=== PATIENT | male | born 1935 | race Hispanic/Latino ===

== ENCOUNTER 2018-03-06 08:47 | Emergency (ER) | payer MEDICARE | END 2018-03-06 09:24 | disposition home or self-care (01) | LOC: EDH 08:47 | DX: B37.42 Candidal balanitis (principal); Z90.49 Acquired absence of other specified parts of digestive tract; Z87.891 Personal history of nicotine dependence; Z98.890 Other specified postprocedural states | CPT/HCPCS: 99281 ==

== ENCOUNTER 2018-08-15 08:06 | Day surgery (SDC) | payer MEDICARE, OTHER ==
[2018-08-14 09:15] LABS: BASOPHILS % (AUTO) 1.7 % (0.0-5.0); EOSINOPHILS % (AUTO) 5.9 % (0.0-8.0); LYMPHOCYTES % (AUTO) 23.5 % (21.0-51.0); MEAN CORPUSCULAR HEMOGLOBIN 29.4 pg (27.0-33.0); MEAN CORPUSCULAR HGB CONC 33.3 g/dL (32.0-36.0); MEAN CORPUSCULAR VOLUME 88.2 fL (79-99); MONOCYTES % (AUTO) 6.6 % (3.0-13.0); NEUTROPHILS % (AUTO) 62.3 % (40.0-77.0); PLATELET COUNT (AUTO) 242 K/uL (130-400); RED BLOOD CELL COUNT(AUTO) 4.99 MIL/uL (4.50-6.20); RED CELL DISTRIBUTION WIDTH 13.8 % (11.0-15.5); WHITE BLOOD COUNT (AUTO) 7.5 K/uL (4.8-10.8)
[2018-08-14 09:18] VITALS: BP 178/78
[2018-08-14 09:23] LABS: APPEARANCE,URINE Clear (CLEAR); BILIRUBIN,URINE Negative (NEGATIVE); COLOR,URINE Yellow (YELLOW); GLUCOSE, URINE (UA) Negative (NEGATIVE); KETONES,URINE Negative (NEGATIVE); LEUKOCYTE ESTERASE ,URINE Negative (NEGATIVE); NITRATE,URINE Negative (NEGATIVE); OCCULT BLOOD,URINE Negative (NEGATIVE); PROTEIN,URINE Negative (NEGATIVE); UROBILINOGEN,URINE 0.2 mg/dL (0.2-1.0)
[2018-08-14 09:24] LABS: CREATININE 1.2 mg/dL (0.5-1.5); POTASSIUM 4.7 mmol/L (3.5-5.1)
[2018-08-14 09:27] LABS: INR 1.02 (0.85-1.15); PARTIAL THROMBOPLASTIN TIME 29.7 SEC (26.3-35.5); PROTHROMBIN TIME 10.7 SEC (9.6-11.6)
[~2018-08-15] VITALS: Ht 177.8 cm; Wt 99.2 kg
[2018-08-15] VITALS (9 sets, daily range): BP systolic 131–168; BP diastolic 60–84
[~2018-08-15 08:06] MED LIST: AMLO5TAB9 PO; ASPI-555 PO; ATOR20TA65 PO; CHOL500050 PO; ISOS30TA6 PO; NITR0.4T50 SL; SODIUM CHLORIDE 0.9% 500ML 500 ML IV SCH
[2018-08-15] MEDS ORDERED: SODIUM CHLORIDE 0.9% 1000ML 1,000 ML IV ONE (09:12)
[2018-08-15] MEDS ORDERED: LIDOCAINE HCL 1% 20 ML VIAL ONE (11:07)
[2018-08-15] MEDS ORDERED: IOHEXOL 350 MG/ML 100ML INFUS..BTL IV ONE (11:08)
[2018-08-15] MEDS ORDERED: IOHEXOL-350 50ML VIAL IV ONE (11:08)
[2018-08-15] MEDS ORDERED: HEPARIN SODIUM 1000UNIT/ML 10ML VIAL ONE (11:08)
== END 2018-08-15 16:15 | disposition home or self-care (01) ==
LOC: DAH 08:06
PROVIDERS: ATTEND Internal Medicine Cardiovascular Disease
DX: I25.118 Atherosclerotic heart disease of native coronary artery with other forms of angina pectoris (principal); E78.5 Hyperlipidemia, unspecified; Z79.01 Long term (current) use of anticoagulants; Z79.899 Other long term (current) drug therapy; Z98.890 Other specified postprocedural states; N18.9 Chronic kidney disease, unspecified; Z68.33 Body mass index [BMI] 33.0-33.9, adult
CPT/HCPCS: 36415; 71045; 80048; 81003; 85025; 85610; 85730; 93005; 93458; A4606; C1760; C1894; J1644 ×2; J7030; Q9965; Q9967 ×2

== ENCOUNTER 2018-08-16 21:05 | Emergency (ER) | payer OTHER ==
[~2018-08-16 21:05] MED LIST changes: -SODIUM CHLORIDE 0.9% 500ML 500 ML IV SCH
[2018-08-16 22:15] LABS: BASOPHILS % (AUTO) 1.1 % (0.0-5.0); HEMATOCRIT 37.3 % (42-54); MEAN CORPUSCULAR HEMOGLOBIN 29.9 pg (27.0-33.0); MEAN CORPUSCULAR HGB CONC 33.9 g/dL (32.0-36.0); MEAN CORPUSCULAR VOLUME 88.3 fL (79-99); MONOCYTES % (AUTO) 8.9 % (3.0-13.0); PLATELET COUNT (AUTO) 212 K/uL (130-400); RED BLOOD CELL COUNT(AUTO) 4.23 MIL/uL (4.50-6.20); RED CELL DISTRIBUTION WIDTH 13.8 % (11.0-15.5); WHITE BLOOD COUNT (AUTO) 7.6 K/uL (4.8-10.8)
[2018-08-16 22:36] LABS: CREATININE 1.3 mg/dL (0.5-1.5); POTASSIUM 4.1 mmol/L (3.5-5.1)
[2018-08-16 22:37] LABS: INR 1.03 (0.85-1.15); PARTIAL THROMBOPLASTIN TIME 29.9 SEC (26.3-35.5); PROTHROMBIN TIME 10.8 SEC (9.6-11.6)
[2018-08-16 22:40] LABS: ALBUMIN 3.1 g/dL (3.5-5.0); BILIRUBIN,TOTAL 0.4 mg/dL (0.2-1.0); TOTAL PROTEIN, SERUM 6.2 g/dL (6.0-8.3)
== END 2018-08-16 22:55 | disposition home or self-care (01) ==
LOC: EDH 21:05
DX: Z48.01 Encounter for change or removal of surgical wound dressing (principal); I25.10 Atherosclerotic heart disease of native coronary artery without angina pectoris; D64.9 Anemia, unspecified; E78.5 Hyperlipidemia, unspecified; Z90.49 Acquired absence of other specified parts of digestive tract
CPT/HCPCS: 36415; 80053; 85025; 85610; 85730

== ENCOUNTER → 2018-09-07 | Outpatient (CLI) | payer OTHER | END | disposition home or self-care (01) | LOC: RAH 10:39 | PROVIDERS: ATTEND Internal Medicine | DX: I70.209 Unspecified atherosclerosis of native arteries of extremities, unspecified extremity (principal) | CPT/HCPCS: 93925 ==

== ENCOUNTER 2018-10-19 07:30 | Day surgery (SDC) | payer OTHER ==
[~2018-10-19] VITALS: Ht 180.3 cm; Wt 98.1 kg
[2018-10-19 08:15] VITALS: BP 163/65
[2018-10-19] MEDS ORDERED: SODIUM CHLORIDE 0.9% 1000ML 1,000 ML IV ONE (08:20)
[2018-10-19] MEDS ORDERED: IOHEXOL 350 MG/ML 100ML INFUS..BTL IV ONE (11:17)
[2018-10-19] MEDS ORDERED: IOHEXOL-350 50ML VIAL IV ONE (11:18)
[2018-10-19 11:55] VITALS: BP 158/58
--- NOTE | 2018-10-19 12:20 | NUR ---
NOTE PT TOLERATED CT WELL, DISCHARGED IN STABLE CONDITION, VOIDED PRIOR TO DISCHARGE. PT ASYMPTOMATIC, IV SITE HEALTHY. DISCHARGE INSTRUCTIONS GIVEN TO SON AND PT, VERBALIZED UNDERSTANDING.
== END 2018-10-19 12:20 | disposition home or self-care (01) ==
LOC: DAH 07:30 → RAH 07:30 → EDSTATUS 08:00 → RAH 12:20
PROVIDERS: ATTEND Internal Medicine Cardiovascular Disease
DX: I70.213 Atherosclerosis of native arteries of extremities with intermittent claudication, bilateral legs (principal); I70.1 Atherosclerosis of renal artery; I25.10 Atherosclerotic heart disease of native coronary artery without angina pectoris; E78.5 Hyperlipidemia, unspecified; N18.9 Chronic kidney disease, unspecified; Z98.890 Other specified postprocedural states
CPT/HCPCS: 75635; 96360; 96361; J7030; Q9967 ×2

== ENCOUNTER 2018-12-11 14:17 | Emergency (ER) | payer OTHER ==
[2018-12-11 14:43] LABS: BASOPHILS % (AUTO) 1.1 % (0.0-5.0); EOSINOPHILS % (AUTO) 9.6 % (0.0-8.0); LYMPHOCYTES % (AUTO) 15.8 % (21.0-51.0); MEAN CORPUSCULAR HEMOGLOBIN 29.8 pg (27.0-33.0); MEAN CORPUSCULAR HGB CONC 33.8 g/dL (32.0-36.0); MEAN CORPUSCULAR VOLUME 88.2 fL (79-99); MONOCYTES % (AUTO) 6.5 % (3.0-13.0); PLATELET COUNT (AUTO) 212 K/uL (130-400); RED BLOOD CELL COUNT(AUTO) 4.65 MIL/uL (4.50-6.20); RED CELL DISTRIBUTION WIDTH 13.8 % (11.0-15.5)
[2018-12-11 14:57] LABS: INR 1.04 (0.85-1.15); PARTIAL THROMBOPLASTIN TIME 28.5 SEC (26.3-35.5); PROTHROMBIN TIME 10.9 SEC (9.6-11.6)
[2018-12-11 14:58] LABS: CARBON DIOXIDE 21 mmol/L (21-32); CHLORIDE 107 mmol/L (101-111); CREATININE 1.4 mg/dL (0.5-1.5); GLOMERULAR FILTR. RATE CALC 51 mL/min (>60); GLUCOSE,RANDOM 154 mg/dL (70-105); POTASSIUM 3.8 mmol/L (3.5-5.1); SODIUM SERUM 139 mmol/L (136-145); UREA NITROGEN, BLOOD 19 mg/dL (7-18)
[2018-12-11 15:11] LABS: ALANINE AMINOTRANSFERASE 17 U/L (12-78); ALBUMIN 3.2 g/dL (3.5-5.0); ASPARTATE AMINOTRANSFERASE 18 U/L (10-37); BILIRUBIN,TOTAL 0.5 mg/dL (0.2-1.0); CREATINE KINASE, TOTAL 120 U/L (21-232); MYOGLOBIN 94 ng/mL (10-92); TOTAL PROTEIN, SERUM 6.7 g/dL (6.0-8.3); TROPONIN I < 0.04 ng/mL (0.00-0.06)
[2018-12-11 15:29] LABS: APPEARANCE,URINE Clear (CLEAR); BILIRUBIN,URINE Negative (NEGATIVE); COLOR,URINE Yellow (YELLOW); GLUCOSE, URINE (UA) Negative (NEGATIVE); KETONES,URINE Negative (NEGATIVE); LEUKOCYTE ESTERASE ,URINE Negative (NEGATIVE); NITRATE,URINE Negative (NEGATIVE); OCCULT BLOOD,URINE Trace (NEGATIVE); PROTEIN,URINE Negative (NEGATIVE); UROBILINOGEN,URINE 0.2 mg/dL (0.2-1.0)
[2018-12-11 15:41] LABS: BACTERIA,URINE Rare /HPF (None Seen); SQUAMOUS EPITHELIAL CELL,UR Rare /HPF (0-2); WBC,URINE 0-1 /HPF (0-1)
[2018-12-11] MEDS ORDERED: BENZONATATE 100 MG CAPSULE PO ONE (16:25)
[2018-12-11] MEDS ORDERED: CEFTRIAXONE SODIUM 1 GM ONE (16:26)
[2018-12-11] MEDS ORDERED: AZITHROMYCIN 250 MG TABLET PO ONE (16:26)
[2018-12-11] MEDS ORDERED: ACETAMINOPHEN 325 MG TAB ONE (16:26)
[2018-12-11] MEDS ORDERED: SODIUM CHLORIDE 0.9% 50 ML IV ONE (16:27)
== END 2018-12-11 17:14 | disposition home or self-care (01) ==
LOC: EDH 14:17
DX: J18.9 Pneumonia, unspecified organism (principal); E78.5 Hyperlipidemia, unspecified; I10 Essential (primary) hypertension; Z90.49 Acquired absence of other specified parts of digestive tract; Z87.891 Personal history of nicotine dependence
CPT/HCPCS: 36415; 71045; 80053; 81001; 81003; 82550; 83605; 83874; 84145; 84484; 85025; 85610; 85730; 87040 ×2; 87088; 87804 ×2; 93005; 96374; 99285; J0696

== ENCOUNTER 2019-05-31 11:47 | Inpatient (IN) | payer OTHER ==
[~2019-05-31] VITALS: Ht 182.9 cm; Wt 93.0 kg
[2019-05-31 12:41] LABS: BASOPHILS % (AUTO) 0.7 % (0.0-5.0); HEMATOCRIT 30.4 % (42-54); MEAN CORPUSCULAR HEMOGLOBIN 29.1 pg (27.0-33.0); MEAN CORPUSCULAR HGB CONC 31.3 g/dL (32.0-36.0); MONOCYTES % (AUTO) 4.1 % (3.0-13.0); NEUTROPHILS % (AUTO) 79.5 % (40.0-77.0); PLATELET COUNT (AUTO) 274 K/uL (130-400); RED BLOOD CELL COUNT(AUTO) 3.27 MIL/uL (4.50-6.20); RED CELL DISTRIBUTION WIDTH 13.9 % (11.0-15.5); WHITE BLOOD COUNT (AUTO) 12.2 K/uL (4.8-10.8)
[2019-05-31 13:13] LABS: INR 1.12 (0.85-1.15); PARTIAL THROMBOPLASTIN TIME 23.6 SEC (26.3-35.5)
[2019-05-31 13:18] LABS: ALBUMIN 2.9 g/dL (3.5-5.0); BILIRUBIN,TOTAL 0.4 mg/dL (0.2-1.0); CREATININE 1.4 mg/dL (0.5-1.5); POTASSIUM 4.5 mmol/L (3.5-5.1); TOTAL PROTEIN, SERUM 5.9 g/dL (6.0-8.3)
[2019-05-31] MEDS ORDERED: SODIUM CHLORIDE 0.9% 500ML 500 ML IV ONE (16:04)
[2019-05-31] MEDS ORDERED: SODIUM CHLORIDE 0.9% 1000ML 1,000 ML IV ONE ×2 (16:04→18:59)
[2019-05-31] MEDS: SODIUM CHLORIDE 0.9% 1000ML 1,000 ML IV SCH (16:34)
[2019-05-31] MEDS ORDERED: HYDRALAZINE HCL 20 MG/ML VIAL IV PRN (16:45)
[2019-05-31 17:08] LABS: APPEARANCE,URINE Cloudy (CLEAR); BILIRUBIN,URINE Negative (NEGATIVE); COLOR,URINE Yellow (YELLOW); GLUCOSE, URINE (UA) Negative (NEGATIVE); KETONES,URINE Trace mg/dL (NEGATIVE); LEUKOCYTE ESTERASE ,URINE Negative (NEGATIVE); NITRATE,URINE Negative (NEGATIVE); OCCULT BLOOD,URINE Negative (NEGATIVE); PROTEIN,URINE Negative (NEGATIVE); UROBILINOGEN,URINE 0.2 mg/dL (0.2-1.0)
[2019-05-31 17:36] LABS: BACTERIA,URINE Rare /HPF (None Seen); RBC,URINE 0-1 /HPF (0-1); SQUAMOUS EPITHELIAL CELL,UR Few /HPF (0-2); WBC,URINE 0-1 /HPF (0-1)
[2019-05-31] MEDS ORDERED: ONDANSETRON HCL 4 MG/2 ML VIAL IVP PRN (18:30)
[2019-05-31] MEDS ORDERED: ZOSYN 3.375GM+NS 50ML 50 ML IV ONE (18:58)
[2019-05-31] MEDS: ZOSYN 3.375GM+NS 50ML 50 ML IV SCH (21:00)
[2019-05-31 21:45] VITALS: BP 152/73
--- NOTE | 2019-05-31 21:45 | NUR ---
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
[2019-05-31] MEDS ORDERED: CILO100T PO (22:33)
[2019-06-01] VITALS: BP 149/61
[2019-06-01] MEDS: SODIUM CHLORIDE 0.9% 1000ML 1,000 ML IV SCH ×3 (02:34→22:34)
[2019-06-01 04:00] VITALS: BP 139/57
--- NOTE | 2019-06-01 04:00 | NUR ---
ASSUME CARE ASSUME CARE FOR PT AT THIS TIME. PT CALM IN BED. NO S/S OF DISTRESS.
[2019-06-01 04:57] LABS: HEMATOCRIT 25.9 % (42-54); MEAN CORPUSCULAR HEMOGLOBIN 29.1 pg (27.0-33.0); MEAN CORPUSCULAR HGB CONC 31.7 g/dL (32.0-36.0); MEAN CORPUSCULAR VOLUME 91.8 fL (79-99); PLATELET COUNT (AUTO) 206 K/uL (130-400); RED BLOOD CELL COUNT(AUTO) 2.82 MIL/uL (4.50-6.20); RED CELL DISTRIBUTION WIDTH 14.3 % (11.0-15.5); WHITE BLOOD COUNT (AUTO) 12.8 K/uL (4.8-10.8)
[2019-06-01 05:13] LABS: CREATININE 1.2 mg/dL (0.5-1.5); POTASSIUM 4.2 mmol/L (3.5-5.1)
[2019-06-01] MEDS: ZOSYN 3.375GM+NS 50ML 50 ML IV SCH ×3 (05:42→21:16)
[2019-06-01 08:00] VITALS: BP 134/58
[2019-06-01] MEDS ORDERED: PANTOPRAZOLE 40 MG/VIAL IVP SCH ×2 (08:30→09:00)
[2019-06-01] MEDS: PANTOPRAZOLE SODIUM 80 MG in SODIUM CHLORIDE 0.9% 100 ML IV SCH (10:33)
[2019-06-01 12:00] VITALS: BP 112/56
[2019-06-01 16:00] VITALS: BP 143/77
[2019-06-01] MEDS ORDERED: CILOSTAZOL 100 MG TAB PO SCH (16:30)
--- NOTE | 2019-06-01 16:41 | NUR ---
D/C PLAN cm spoke to pt and son regarding d/c planning. Son named Jason at bedside. Pt is ind. and lives with grandterry. States pt has provider about 2-3 hours/day. Denies having any DME. Plan to home. CM offered short term snf/rehab as possible d/c option. Per son, prefers to return home. Plan to home for now. CM to f/u. Addendum: 06/01/19 at 1652 by KAREN FAGAN CM Amended: Links added.
--- NOTE | 2019-06-01 16:45 | NUR ---
After son of pt call and notify that the pt sounds different when he speak, I evaluated the pt and notice slurred speech that was not present approximally 30 to [address] Giorn was notify and order a CT head/Brain stat, Tele-Neuro, labs and code stroke was call. Using Tele- Neuro pt was evaluated by Dr Pires and suspected a stroke, CT angio of head and neck was ordered and pt was taken immediately (pending result). At the moment pt is stable, AAO x3 with daughter on bedside.
[2019-06-01] MEDS ORDERED: IOHEXOL-350 75 ML VIAL IV ONE (17:16)
[2019-06-01 18:38] LABS: BASOPHILS % (AUTO) 0.8 % (0.0-5.0); HEMATOCRIT 25.7 % (42-54); LYMPHOCYTES % (AUTO) 28.7 % (21.0-51.0); MEAN CORPUSCULAR HEMOGLOBIN 28.7 pg (27.0-33.0); MEAN CORPUSCULAR HGB CONC 30.7 g/dL (32.0-36.0); MEAN CORPUSCULAR VOLUME 93.5 fL (79-99); PLATELET COUNT (AUTO) 190 K/uL (130-400); RED BLOOD CELL COUNT(AUTO) 2.75 MIL/uL (4.50-6.20); RED CELL DISTRIBUTION WIDTH 14.6 % (11.0-15.5); WHITE BLOOD COUNT (AUTO) 10.3 K/uL (4.8-10.8)
[2019-06-01 19:03] LABS: CREATININE 1.3 mg/dL (0.5-1.5); POTASSIUM 4.1 mmol/L (3.5-5.1)
[2019-06-01 19:07] LABS: ALBUMIN 2.7 g/dL (3.5-5.0); BILIRUBIN,TOTAL 0.5 mg/dL (0.2-1.0); TOTAL PROTEIN, SERUM 5.5 g/dL (6.0-8.3)
[2019-06-01 20:00] VITALS: BP 138/59
--- NOTE | 2019-06-01 20:12 | NUR ---
PLETAL ANTIPLATELET MEDICATION NOT ADMINISTERED D/T ACTIVE GI BLEED. AWARE
--- NOTE | 2019-06-01 20:40 | NUR ---
TRANSFER TO 230 PT TRANFERED TO ROOM 230 AT THIS TIME. FAMILY AT BEDSIDE. NO S/S OF DISTRESS. REPORT GIVEN TO RODRIGO HAJI
[2019-06-01] MEDS ORDERED: ISOSORBIDE MONO 30MG TAB SR PO SCH (21:00)
[2019-06-02] VITALS (14 sets, daily range): BP systolic 104–158; BP diastolic 53–75
[2019-06-02] MEDS: ZOSYN 3.375GM+NS 50ML 50 ML IV SCH ×3 (05:02→21:02)
[2019-06-02 06:42] LABS: BASOPHILS % (AUTO) 0.7 % (0.0-5.0); EOSINOPHILS % (AUTO) 12.6 % (0.0-8.0); HEMATOCRIT 24.6 % (42-54); LYMPHOCYTES % (AUTO) 23.3 % (21.0-51.0); MEAN CORPUSCULAR HEMOGLOBIN 28.5 pg (27.0-33.0); MEAN CORPUSCULAR HGB CONC 30.5 g/dL (32.0-36.0); MEAN CORPUSCULAR VOLUME 93.5 fL (79-99); MONOCYTES % (AUTO) 5.9 % (3.0-13.0); PLATELET COUNT (AUTO) 201 K/uL (130-400); RED BLOOD CELL COUNT(AUTO) 2.63 MIL/uL (4.50-6.20); RED CELL DISTRIBUTION WIDTH 14.6 % (11.0-15.5)
[2019-06-02 06:56] LABS: CREATININE 1.3 mg/dL (0.5-1.5); POTASSIUM 4.3 mmol/L (3.5-5.1)
[2019-06-02] MEDS ORDERED: PROPOFOL 10 MG/ML 20ML VIAL IV ONE (07:48)
[2019-06-02] MEDS: SODIUM CHLORIDE 0.9% 1000ML 1,000 ML IV SCH ×2 (08:34→21:02)
[2019-06-02] MEDS: PANTOPRAZOLE SODIUM 80 MG in SODIUM CHLORIDE 0.9% 100 ML IV SCH (10:36)
[2019-06-02] MEDS ORDERED: ATORVASTATIN CALCIUM 20 MG TABLET PO SCH (12:00)
[2019-06-02] MEDS: SUCRALFATE 1 GM/10 ML PO SCH (21:02)
[2019-06-03] VITALS (7 sets, daily range): BP systolic 121–145; BP diastolic 45–85
[2019-06-03 04:52] LABS: BASOPHILS % (AUTO) 0.7 % (0.0-5.0); EOSINOPHILS % (AUTO) 14.4 % (0.0-8.0); HEMATOCRIT 23.7 % (42-54); LYMPHOCYTES % (AUTO) 27.3 % (21.0-51.0); MEAN CORPUSCULAR HEMOGLOBIN 29.6 pg (27.0-33.0); MEAN CORPUSCULAR HGB CONC 31.6 g/dL (32.0-36.0); MEAN CORPUSCULAR VOLUME 93.7 fL (79-99); MONOCYTES % (AUTO) 6.7 % (3.0-13.0); NEUTROPHILS % (AUTO) 50.6 % (40.0-77.0); PLATELET COUNT (AUTO) 176 K/uL (130-400); RED BLOOD CELL COUNT(AUTO) 2.53 MIL/uL (4.50-6.20); RED CELL DISTRIBUTION WIDTH 14.6 % (11.0-15.5); WHITE BLOOD COUNT (AUTO) 9.4 K/uL (4.8-10.8)
[2019-06-03 05:18] LABS: ALBUMIN 2.6 g/dL (3.5-5.0); BILIRUBIN,TOTAL 0.4 mg/dL (0.2-1.0); CREATININE 1.2 mg/dL (0.5-1.5); POTASSIUM 3.6 mmol/L (3.5-5.1); TOTAL PROTEIN, SERUM 5.2 g/dL (6.0-8.3)
[2019-06-03] MEDS: ZOSYN 3.375GM+NS 50ML 50 ML IV SCH ×3 (05:30→20:59)
[2019-06-03] MEDS: PANTOPRAZOLE SODIUM 40 MG TABLET.DR PO SCH (06:22)
[2019-06-03] MEDS: SUCRALFATE 1 GM/10 ML PO SCH ×2 (08:12→14:32)
[2019-06-03] MEDS ORDERED: ATORVASTATIN CALCIUM 20 MG TABLET PO SCH (21:00)
[2019-06-04 03:33] VITALS: BP 112/50
[2019-06-04 04:29] LABS: BASOPHILS % (AUTO) 0.7 % (0.0-5.0); EOSINOPHILS % (AUTO) 10.7 % (0.0-8.0); HEMATOCRIT 22.4 % (42-54); LYMPHOCYTES % (AUTO) 31.2 % (21.0-51.0); MEAN CORPUSCULAR HEMOGLOBIN 29.3 pg (27.0-33.0); MEAN CORPUSCULAR HGB CONC 31.7 g/dL (32.0-36.0); MEAN CORPUSCULAR VOLUME 92.6 fL (79-99); MONOCYTES % (AUTO) 6.7 % (3.0-13.0); NEUTROPHILS % (AUTO) 50.4 % (40.0-77.0); PLATELET COUNT (AUTO) 185 K/uL (130-400); RED BLOOD CELL COUNT(AUTO) 2.42 MIL/uL (4.50-6.20); RED CELL DISTRIBUTION WIDTH 14.6 % (11.0-15.5); WHITE BLOOD COUNT (AUTO) 9.7 K/uL (4.8-10.8)
[2019-06-04 04:42] LABS: ALBUMIN 2.5 g/dL (3.5-5.0); BILIRUBIN,TOTAL 0.4 mg/dL (0.2-1.0); CREATININE 1.4 mg/dL (0.5-1.5); POTASSIUM 3.3 mmol/L (3.5-5.1); TOTAL PROTEIN, SERUM 5.1 g/dL (6.0-8.3)
[2019-06-04] MEDS: SUCRALFATE 1 GM/10 ML PO SCH ×2 (05:48→12:06)
[2019-06-04] MEDS: ZOSYN 3.375GM+NS 50ML 50 ML IV SCH ×2 (05:50→12:06)
[2019-06-04] MEDS: PANTOPRAZOLE SODIUM 40 MG TABLET.DR PO SCH (05:55)
[2019-06-04] MEDS ORDERED: POTASSIUM BICARB/CIT AC 25 MEQ TABLET.EFF PO SCH (06:45)
--- NOTE | 2019-06-04 07:35 | NUR ---
ASSESSMENT ENCOUNTERED PT SITTING UP IN CHAIR, A&OX3, CALM COOPERATIVE AND DOES NOT APPEAR TO BE IN ANY DISTRESS NOR ANY NEURO DEFICITS PRESENT, PT DENIES PAIN, SOB, NAUSEA BUT DOES C/O GENERALIZED BODY WEAKNESS. PT IS ABLE TO TOLERATE FOODS, FLUIDS AND MEDICATION WITH NO THROAT CLEARING OR COUGH. PT IS AMBULATORY, GAIT SLOW AND UNSTEADY WITH ASSIST. CALL LIGHT WITHIN REACH, FAMILY AT BEDSIDE.
[2019-06-04 08:22] VITALS: BP 128/53
[2019-06-04 11:50] VITALS: BP 124/68
[2019-06-04 13:24] LABS: MEAN CORPUSCULAR HEMOGLOBIN 30.2 pg (27.0-33.0); MEAN CORPUSCULAR HGB CONC 31.5 g/dL (32.0-36.0); MEAN CORPUSCULAR VOLUME 96.1 fL (79-99); PLATELET COUNT (AUTO) 235 K/uL (130-400); RED BLOOD CELL COUNT(AUTO) 2.81 MIL/uL (4.50-6.20); RED CELL DISTRIBUTION WIDTH 15.5 % (11.0-15.5)
[2019-06-04] MEDS ORDERED: FERR325T22 PO (13:48)
[2019-06-04] MEDS ORDERED: CARAL PO (13:48)
[2019-06-04] MEDS ORDERED: PANT40TA PO (13:48)
[2019-06-04] MEDS ORDERED: POTASSIUM CHLORIDE 20 MEQ ERTAB PO SCH (14:00)
--- NOTE | 2019-06-04 14:31 | NUR ---
[id number] patient signed IM Letter, I faxed IM Letter to [phone] and placed in chart under consent tab
[2019-06-04 16:26] VITALS: BP 137/51
--- NOTE | 2019-06-04 18:00 | NUR ---
DISCHARGE INSTRUCTIONS GIVEN, PIV REMOVED AND INTACT, DISCHARGED HOME TO FAMILY VEHICLE VIA WHEELCHAIR.
== END 2019-06-04 18:33 | disposition home or self-care (01) | DRG 380 ==
LOC: EDH 11:47 → OBSVTOIN 16:37 → EDHIP 16:37 → 3AH 21:49 → 2AH 06-01 20:35
PROVIDERS: ADMIT Internal Medicine; ATTEND Internal Medicine
PROC: 0DJ08ZZ Inspection of Upper Intestinal Tract, Via Natural or Artificial Opening Endoscopic (ICD-10-PCS; principal; 2019-06-02)
DX: K22.11 Ulcer of esophagus with bleeding (principal); I63.9 Cerebral infarction, unspecified; D62 Acute posthemorrhagic anemia; K29.71 Gastritis, unspecified, with bleeding; K26.4 Chronic or unspecified duodenal ulcer with hemorrhage; E78.5 Hyperlipidemia, unspecified; E86.0 Dehydration; I10 Essential (primary) hypertension; K44.9 Diaphragmatic hernia without obstruction or gangrene; I95.9 Hypotension, unspecified; R00.0 Tachycardia, unspecified; K31.89 Other diseases of stomach and duodenum; I73.9 Peripheral vascular disease, unspecified; R47.81 Slurred speech; R29.708 NIHSS score 8; Z87.891 Personal history of nicotine dependence; Z90.49 Acquired absence of other specified parts of digestive tract; Z98.42 Cataract extraction status, left eye; Z98.41 Cataract extraction status, right eye; Z79.899 Other long term (current) drug therapy
CPT/HCPCS: 36415; 43235; 70450; 70496; 70498; 70551; 71045; 76700; 80048; 80053; 81001; 82140; 82948; 83605; 83690; 84145; 84484; 85025; 85027; 85610; 85730; 86850; 86900; 86901; 87088; 93005; 97039; 99291; C9113; G0378; J2543; J2704; J7030; J7040; Q9967

== ENCOUNTER 2020-02-21 11:36 | Emergency (ER) | payer OTHER ==
[~2020-02-21 11:36] MED LIST changes: -AMLO5TAB9 PO; -ASPI-555 PO; +ASPI-556 PO; +CARAL PO; +CILO100T PO; +FERR325T22 PO; -NITR0.4T50 SL; +PANT40TA PO
[2020-02-21 11:57] LABS: BASOPHILS % (AUTO) 0.5 % (0.0-5.0); EOSINOPHILS % (AUTO) 0.1 % (0.0-8.0); HEMATOCRIT 44.9 % (42-54); LYMPHOCYTES % (AUTO) 14.6 % (21.0-51.0); MEAN CORPUSCULAR HEMOGLOBIN 29.3 pg (27.0-33.0); MEAN CORPUSCULAR HGB CONC 32.1 g/dL (32.0-36.0); MEAN CORPUSCULAR VOLUME 91.3 fL (79-99); MONOCYTES % (AUTO) 7.5 % (3.0-13.0); NEUTROPHILS % (AUTO) 77.1 % (40.0-77.0); PLATELET COUNT (AUTO) 184 K/uL (130-400); RED BLOOD CELL COUNT(AUTO) 4.92 MIL/uL (4.50-6.20); RED CELL DISTRIBUTION WIDTH 13.4 % (11.0-15.5)
[2020-02-21] MEDS ORDERED: ACETAMINOPHEN EXTRA STRENGTH 500 MG TABLET ONE (12:00)
[2020-02-21 12:01] LABS: CREATININE 1.6 mg/dL (0.5-1.5); POTASSIUM 3.6 mmol/L (3.5-5.1)
[2020-02-21 12:06] LABS: ALBUMIN 3.1 g/dL (3.5-5.0); BILIRUBIN,TOTAL 0.5 mg/dL (0.2-1.0); INR 1.06 (0.85-1.15); PARTIAL THROMBOPLASTIN TIME 27.8 SEC (26.3-35.5); PROTHROMBIN TIME 11.4 SEC (9.6-11.6); TOTAL PROTEIN, SERUM 7.1 g/dL (6.0-8.3)
[2020-02-21 13:03] LABS: APPEARANCE,URINE Clear (CLEAR); BILIRUBIN,URINE Negative (NEGATIVE); COLOR,URINE Yellow (YELLOW); GLUCOSE, URINE (UA) Negative (NEGATIVE); KETONES,URINE Negative (NEGATIVE); LEUKOCYTE ESTERASE ,URINE Trace (NEGATIVE); NITRATE,URINE Negative (NEGATIVE); OCCULT BLOOD,URINE Moderate (NEGATIVE); PROTEIN,URINE Trace mg/dL (NEGATIVE)
[2020-02-21 13:30] LABS: BACTERIA,URINE None Seen /HPF (None Seen); RBC,URINE 0-1 /HPF (0-1); SQUAMOUS EPITHELIAL CELL,UR 0-2 /HPF (0-2); WBC,URINE 0-1 /HPF (0-1)
[2020-02-21] MEDS ORDERED: IVERMECTIN 3 MG TAB PO SCH (14:00)
[2020-02-21] MEDS ORDERED: ENOXAPARIN SODIUM 100 MG/1 ML SQ ONE (14:17)
[2020-02-21] MEDS ORDERED: CEFTRIAXONE SODIUM 1 GM ONE (14:18)
[2020-02-21] MEDS ORDERED: SODIUM CHLORIDE 0.9% 100 ML IV ONE (14:19)
== END 2020-02-21 15:00 | disposition home or self-care (01) ==
LOC: EDH 11:36
DX: R50.9 Fever, unspecified (principal); Z20.828 Contact with and (suspected) exposure to other viral communicable diseases; I10 Essential (primary) hypertension; E78.5 Hyperlipidemia, unspecified
CPT/HCPCS: 36415; 70450; 71045; 72125; 80053; 81001; 82550; 82728; 83605; 83615; 84145; 84484; 85025; 85378; 85610; 85651; 85730; 87040; 87426; 93005; 96372; 96374; 99285; J0696; J1650; U0003

== ENCOUNTER 2020-03-27 15:42 | Emergency (ER) | payer OTHER ==
[~2020-03-27 15:42] MED LIST changes: -ISOS30TA6 PO; +ISOS30TA92 PO
[2020-03-27 16:37] LABS: BASOPHILS % (AUTO) 0.2 % (0.0-5.0); HEMATOCRIT 42.1 % (42-54); LYMPHOCYTES % (AUTO) 17.7 % (21.0-51.0); MEAN CORPUSCULAR HGB CONC 32.5 g/dL (32.0-36.0); MEAN CORPUSCULAR VOLUME 89.2 fL (79-99); MONOCYTES % (AUTO) 6.4 % (3.0-13.0); NEUTROPHILS % (AUTO) 75.5 % (40.0-77.0); PLATELET COUNT (AUTO) 235 K/uL (130-400); RED BLOOD CELL COUNT(AUTO) 4.72 MIL/uL (4.50-6.20); RED CELL DISTRIBUTION WIDTH 14.1 % (11.0-15.5); WHITE BLOOD COUNT (AUTO) 5.8 K/uL (4.8-10.8)
[2020-03-27 16:52] LABS: CREATININE 1.4 mg/dL (0.5-1.5)
[2020-03-27 16:57] LABS: ALBUMIN 2.7 g/dL (3.5-5.0); BILIRUBIN,TOTAL 0.3 mg/dL (0.2-1.0); TOTAL PROTEIN, SERUM 6.4 g/dL (6.0-8.3)
[2020-03-27 17:42] LABS: APPEARANCE,URINE Clear (CLEAR); BILIRUBIN,URINE Negative (NEGATIVE); COLOR,URINE Yellow (YELLOW); GLUCOSE, URINE (UA) Negative (NEGATIVE); KETONES,URINE Negative (NEGATIVE); LEUKOCYTE ESTERASE ,URINE Negative (NEGATIVE); NITRATE,URINE Negative (NEGATIVE); OCCULT BLOOD,URINE Negative (NEGATIVE); PROTEIN,URINE Trace mg/dL (NEGATIVE); UROBILINOGEN,URINE 0.2 mg/dL (0.2-1.0)
[2020-03-27 18:00] LABS: BACTERIA,URINE Few /HPF (None Seen); MUCUS,URINE Few LPF (None Seen); RBC,URINE 0-1 /HPF (0-1); SQUAMOUS EPITHELIAL CELL,UR Moderate /HPF (0-2); WBC,URINE 0-1 /HPF (0-1)
== END 2020-03-27 19:04 | disposition home or self-care (01) ==
LOC: EDH 15:42
DX: R53.1 Weakness (principal); Z20.822 Contact with and (suspected) exposure to COVID-19; E78.5 Hyperlipidemia, unspecified; I10 Essential (primary) hypertension
CPT/HCPCS: 36415; 80053; 81001; 84484; 85025; 93005

== ENCOUNTER 2020-04-01 11:30 | Inpatient (IN) | payer OTHER ==
[~2020-04-01] VITALS: Ht 180.3 cm; Wt 67.7 kg
[2020-04-01 11:53] LABS: ABG HCO3 20.4 mmol/L (21.0-28.0); ABG OXYGEN SATURATION 85.6 % (95.0-99.0); ABG PCO2 32 mmHg (35-48)
[2020-04-01 11:54] LABS: BASOPHILS % (AUTO) 0.3 % (0.0-5.0); EOSINOPHILS % (AUTO) 0.9 % (0.0-8.0); HEMATOCRIT 42.2 % (42-54); LYMPHOCYTES % (AUTO) 13.7 % (21.0-51.0); MEAN CORPUSCULAR HEMOGLOBIN 28.8 pg (27.0-33.0); MONOCYTES % (AUTO) 5.8 % (3.0-13.0); NEUTROPHILS % (AUTO) 78.9 % (40.0-77.0); PLATELET COUNT (AUTO) 341 K/uL (130-400); RED BLOOD CELL COUNT(AUTO) 4.69 MIL/uL (4.50-6.20); RED CELL DISTRIBUTION WIDTH 14.4 % (11.0-15.5); WHITE BLOOD COUNT (AUTO) 7.5 K/uL (4.8-10.8)
[2020-04-01] MEDS ORDERED: DEXAMETHASONE SOD PHOSPHATE 10MG/ML 1ML VIAL ONE (12:03)
[2020-04-01] MEDS ORDERED: CEFTRIAXONE 1G VIAL ONE (12:04)
[2020-04-01] MEDS ORDERED: AZITHROMYCIN 500MG+NS 250ML 250 ML IV ONE (12:04)
[2020-04-01] MEDS ORDERED: ACETAMINOPHEN 500 MG TABLET ONE (12:04)
[2020-04-01 12:08] LABS: CARBON DIOXIDE 26 mmol/L (21-32); CHLORIDE 110 mmol/L (101-111); CREATININE 1.2 mg/dL (0.5-1.5); GLOMERULAR FILTR. RATE CALC 61 mL/min (>60); GLUCOSE,RANDOM 111 mg/dL (70-105); POTASSIUM 3.9 mmol/L (3.5-5.1); SODIUM SERUM 145 mmol/L (136-145); UREA NITROGEN, BLOOD 24 mg/dL (7-18)
[2020-04-01 12:19] LABS: TROPONIN I < 0.04 ng/mL (0.00-0.06)
[2020-04-01 12:28] LABS: INR 1.14 (0.85-1.15); PROTHROMBIN TIME 12.1 SEC (9.6-11.6)
[2020-04-01 12:29] LABS: PARTIAL THROMBOPLASTIN TIME 35.3 SEC (26.3-35.5)
[2020-04-01 12:38] LABS: ALANINE AMINOTRANSFERASE 65 U/L (12-78); ALBUMIN 2.2 g/dL (3.5-5.0); ASPARTATE AMINOTRANSFERASE 85 U/L (10-37); BILIRUBIN,TOTAL 0.9 mg/dL (0.2-1.0); CREATINE KINASE, TOTAL 64 U/L (21-232); MYOGLOBIN 102 ng/mL (10-92); TOTAL PROTEIN, SERUM 6.3 g/dL (6.0-8.3)
[2020-04-01] MEDS ORDERED: ACETAMINOPHEN 325 MG TAB PO PRN (15:00)
[2020-04-01] MEDS ORDERED: CLONIDINE HCL 0.1 MG TABLET PO PRN (15:00)
[2020-04-01] MEDS ORDERED: LACTULOSE 20 GM/30 ML UDCUP PO PRN (15:00)
[2020-04-01] MEDS ORDERED: ONDANSETRON 4MG INJ IVP PRN (15:00)
[2020-04-01] MEDS ORDERED: ACETAMINOPHEN 650 MG SUPPOSITORY RC PRN (15:00)
[2020-04-01] MEDS ORDERED: ALBUTEROL INHALER 90MCG/INH IH PRN (15:00)
[2020-04-01] MEDS: INSULIN HUMULIN R 100 UNIT/ML 3ML SQ SCH ×2 (16:30→21:00)
[2020-04-01 16:59] LABS: CREATINE KINASE, TOTAL 58 U/L (21-232); MYOGLOBIN 107 ng/mL (10-92); TROPONIN I < 0.04 ng/mL (0.00-0.06)
[2020-04-01 18:06] LABS: APPEARANCE,URINE Clear (CLEAR); BILIRUBIN,URINE Small (NEGATIVE); COLOR,URINE Dark Yellow (YELLOW); GLUCOSE, URINE (UA) Negative (NEGATIVE); KETONES,URINE Negative (NEGATIVE); LEUKOCYTE ESTERASE ,URINE Negative (NEGATIVE); NITRATE,URINE Negative (NEGATIVE); OCCULT BLOOD,URINE Negative (NEGATIVE); PROTEIN,URINE Trace mg/dL (NEGATIVE)
[2020-04-01 18:33] LABS: BACTERIA,URINE Few /HPF (None Seen); MUCUS,URINE Few LPF (None Seen); SQUAMOUS EPITHELIAL CELL,UR Few /HPF (0-2)
[2020-04-01] MEDS ORDERED: ENOXAPARIN SODIUM 40 MG/0.4 ML SYRINGE SQ ONE (19:54)
[2020-04-01 20:28] LABS: CREATINE KINASE, TOTAL 53 U/L (21-232); MYOGLOBIN 94 ng/mL (10-92); TROPONIN I < 0.04 ng/mL (0.00-0.06)
[2020-04-01] MEDS: ENOXAPARIN SODIUM 40 MG/0.4 ML SYRINGE SQ SCH (21:00)
[2020-04-01] MEDS: DEXAMETHASONE SOD PHOSPHATE 10MG/ML 1ML VIAL IVP SCH (21:00)
[2020-04-01] MEDS ORDERED: PHARMACY COMMUNICATION MISC SCH (21:30)
[2020-04-01 21:48] VITALS: BP 148/48
[2020-04-02 00:20] VITALS: BP 137/57
[2020-04-02 03:22] LABS: BASOPHILS % (AUTO) 0.2 % (0.0-5.0); HEMATOCRIT 46.2 % (42-54); MEAN CORPUSCULAR HEMOGLOBIN 28.9 pg (27.0-33.0); MEAN CORPUSCULAR HGB CONC 31.8 g/dL (32.0-36.0); MEAN CORPUSCULAR VOLUME 90.9 fL (79-99); MONOCYTES % (AUTO) 2.4 % (3.0-13.0); NEUTROPHILS % (AUTO) 82.9 % (40.0-77.0); PLATELET COUNT (AUTO) 314 K/uL (130-400); RED BLOOD CELL COUNT(AUTO) 5.08 MIL/uL (4.50-6.20); RED CELL DISTRIBUTION WIDTH 14.2 % (11.0-15.5); WHITE BLOOD COUNT (AUTO) 6.2 K/uL (4.8-10.8)
[2020-04-02 03:48] VITALS: BP 155/54
[2020-04-02 04:00] LABS: CARBON DIOXIDE 24 mmol/L (21-32); CHLORIDE 110 mmol/L (101-111); CREATINE KINASE, TOTAL 84 U/L (21-232); CREATININE 1.2 mg/dL (0.5-1.5); GLOMERULAR FILTR. RATE CALC 61 mL/min (>60); GLUCOSE,RANDOM 175 mg/dL (70-105); LACTATE DEHYDROGENASE 422 U/L (81-234); MYOGLOBIN 119 ng/mL (10-92); POTASSIUM 4.5 mmol/L (3.5-5.1); SODIUM SERUM 145 mmol/L (136-145); TROPONIN I < 0.04 ng/mL (0.00-0.06); UREA NITROGEN, BLOOD 28 mg/dL (7-18)
[2020-04-02] MEDS: INSULIN HUMULIN R 100 UNIT/ML 3ML SQ SCH ×3 (06:50→21:00)
[2020-04-02] MEDS: DEXAMETHASONE SOD PHOSPHATE 10MG/ML 1ML VIAL IVP SCH ×2 (08:20→21:17)
[2020-04-02] MEDS: CEFTRIAXONE 1G VIAL IVP SCH (08:20)
[2020-04-02] MEDS: ASCORBIC ACID 500 MG TAB PO SCH (08:21)
[2020-04-02] MEDS: ASPIRIN 81MG CHEW TAB PO SCH (08:21)
[2020-04-02] MEDS: ZINC SULFATE 220 CAPSULE PO SCH (08:21)
[2020-04-02] MEDS: ENOXAPARIN SODIUM 40 MG/0.4 ML SYRINGE SQ SCH ×2 (08:21→21:19)
[2020-04-02] MEDS: AZITHROMYCIN 500MG+NS 250ML 250 ML IV SCH (08:22)
[2020-04-02] MEDS ORDERED: AZITHROMYCIN 500MG+NS 250ML IV SCH (09:00)
[2020-04-02 09:08] VITALS: BP 136/58
[2020-04-02 12:42] VITALS: BP 124/41
[2020-04-02] MEDS ORDERED: COMPOUND IV REFRIGERATED 1 EACH IVSOLN MISC PRN (14:00)
[2020-04-02] MEDS ORDERED: REMDESIVIR (EUA) 520 200 MG in 0.9% NACL 250ML 250 ML IV ONE (14:00)
[2020-04-02 17:03] VITALS: BP_SYST 53
[2020-04-02 20:00] VITALS: BP 148/49
[2020-04-02] MEDS ORDERED: ISOSORBIDE MONO 30MG SR TAB PO SCH (21:00)
[2020-04-02] MEDS: ATORVASTATIN 20 MG TABLET PO SCH (21:18)
[2020-04-03 00:15] VITALS: BP 118/54
[2020-04-03 03:20] VITALS: BP 126/50
[2020-04-03 05:46] LABS: MEAN CORPUSCULAR HEMOGLOBIN 28.3 pg (27.0-33.0); MEAN CORPUSCULAR HGB CONC 31.9 g/dL (32.0-36.0); MEAN CORPUSCULAR VOLUME 88.7 fL (79-99); RED BLOOD CELL COUNT(AUTO) 4.06 MIL/uL (4.50-6.20); RED CELL DISTRIBUTION WIDTH 14.1 % (11.0-15.5); WHITE BLOOD COUNT (AUTO) 16.3 K/uL (4.8-10.8)
[2020-04-03] MEDS: PHARMACY COMMUNICATION MISC SCH (06:00)
[2020-04-03 06:28] LABS: POTASSIUM 4.2 mmol/L (3.5-5.1)
[2020-04-03] MEDS: INSULIN HUMULIN R 100 UNIT/ML 3ML SQ SCH ×4 (06:35→21:00)
[2020-04-03 07:41] LABS: CRP QUANTITATIVE 24.4 mg/L (0.00-9.0)
[2020-04-03] MEDS: DEXAMETHASONE SOD PHOSPHATE 10MG/ML 1ML VIAL IVP SCH ×2 (07:58→19:56)
[2020-04-03] MEDS: CEFTRIAXONE 1G VIAL IVP SCH (08:01)
[2020-04-03] MEDS: ASCORBIC ACID 500 MG TAB PO SCH (08:01)
[2020-04-03] MEDS: AZITHROMYCIN 500MG+NS 250ML 250 ML IV SCH (08:01)
[2020-04-03] MEDS: ENOXAPARIN SODIUM 40 MG/0.4 ML SYRINGE SQ SCH ×2 (08:01→19:57)
[2020-04-03] MEDS: ZINC SULFATE 220 CAPSULE PO SCH (08:01)
[2020-04-03] MEDS: ASPIRIN 81MG CHEW TAB PO SCH (08:01)
[2020-04-03] MEDS ORDERED: FUROSEMIDE 40MG VIAL IV SCH (08:15)
[2020-04-03 10:09] LABS: ABG BASE EXCESS -3.5 mmol/L (-2.0-3.0); ABG HCO3 19.7 mmol/L (21.0-28.0); ABG OXYGEN SATURATION 94.5 % (95.0-99.0); ABG PCO2 31 mmHg (35-48)
[2020-04-03 10:13] VITALS: BP 157/66
[2020-04-03] MEDS ORDERED: GADODIAMIDE 10 MMOL/20 ML VIAL IV ONE (10:51)
[2020-04-03 12:25] LABS: CHOLESTEROL 138 mg/dL (<200); HDL CHOLESTEROL 21 mg/dL (29-71); LDL DIRECT 92 mg/dL (0-99); TRIGLYCERIDES 129 mg/dL (30-200)
[2020-04-03 12:28] LABS: HEMOGLOBIN A1C 6.3 % (4.0-6.0)
[2020-04-03] MEDS ORDERED: LORAZEPAM 2 MG/ML 1 ML VIAL IVP ONE ×3 (14:30→17:25)
[2020-04-03 14:40] LABS: ALBUMIN 2.4 g/dL (3.5-5.0); BILIRUBIN,DIRECT 0.2 mg/dL (0.0-0.3); BILIRUBIN,TOTAL 0.4 mg/dL (0.2-1.0); TOTAL PROTEIN, SERUM 6.4 g/dL (6.0-8.3)
[2020-04-03 14:50] LABS: CREATININE 1.1 mg/dL (0.5-1.5)
[2020-04-03] MEDS ORDERED: IOHEXOL-350 75 ML VIAL IV ONE (15:16)
[2020-04-03] MEDS: REMDESIVIR (EUA) 520 100 MG in 0.9% NACL 250ML 250 ML IV SCH (16:14)
[2020-04-03 19:40] VITALS: BP 156/80
[2020-04-03] MEDS: ATORVASTATIN 20 MG TABLET PO SCH (19:55)
[2020-04-03] MEDS ORDERED: LORAZEPAM 2 MG/ML 1 ML VIAL ONE (21:02)
[2020-04-03] MEDS: LORAZEPAM 2 MG/ML 1 ML VIAL IVP PRN (21:19)
[2020-04-03] MEDS ORDERED: HALOPERIDOL INJ 5 MG/ML VIAL IV SCH (22:15)
[2020-04-03 23:30] VITALS: BP 157/75
[2020-04-04 03:24] VITALS: BP 111/47
[2020-04-04] MEDS: PHARMACY COMMUNICATION MISC SCH (05:39)
[2020-04-04 06:02] LABS: HEMATOCRIT 40.7 % (42-54); MEAN CORPUSCULAR HEMOGLOBIN 28.1 pg (27.0-33.0); MEAN CORPUSCULAR HGB CONC 31.7 g/dL (32.0-36.0); MEAN CORPUSCULAR VOLUME 88.7 fL (79-99); RED BLOOD CELL COUNT(AUTO) 4.59 MIL/uL (4.50-6.20); RED CELL DISTRIBUTION WIDTH 14.2 % (11.0-15.5); WHITE BLOOD COUNT (AUTO) 15.8 K/uL (4.8-10.8)
[2020-04-04 06:34] LABS: ALBUMIN 2.5 g/dL (3.5-5.0); BILIRUBIN,TOTAL 0.5 mg/dL (0.2-1.0); CREATININE 1.2 mg/dL (0.5-1.5); CRP QUANTITATIVE 16.4 mg/L (0.00-9.0); POTASSIUM 4.3 mmol/L (3.5-5.1); TOTAL PROTEIN, SERUM 6.4 g/dL (6.0-8.3)
[2020-04-04] MEDS: INSULIN HUMULIN R 100 UNIT/ML 3ML SQ SCH ×4 (06:50→21:00)
[2020-04-04] MEDS: LORAZEPAM 2 MG/ML 1 ML VIAL IVP PRN (07:56)
[2020-04-04 08:00] VITALS: BP 124/70
[2020-04-04] MEDS: ASCORBIC ACID 500 MG TAB PO SCH (09:27)
[2020-04-04] MEDS: ZINC SULFATE 220 CAPSULE PO SCH (09:27)
[2020-04-04] MEDS: CEFTRIAXONE 1G VIAL IVP SCH (09:28)
[2020-04-04] MEDS: DEXAMETHASONE SOD PHOSPHATE 10MG/ML 1ML VIAL IVP SCH ×2 (09:28→21:08)
[2020-04-04] MEDS: ASPIRIN 81MG CHEW TAB PO SCH (09:28)
[2020-04-04] MEDS: ENOXAPARIN SODIUM 40 MG/0.4 ML SYRINGE SQ SCH ×2 (09:29→21:09)
[2020-04-04] MEDS: AZITHROMYCIN 500MG+NS 250ML 250 ML IV SCH (09:29)
[2020-04-04] MEDS: DEXTROSE 5%-WATER 1,000 ML IV SCH ×2 (11:23→21:52)
[2020-04-04] MEDS: QUETIAPINE FUMARATE 25 MG TAB PO SCH ×2 (11:25→21:08)
[2020-04-04 12:00] VITALS: BP 130/48
[2020-04-04] MEDS: REMDESIVIR (EUA) 520 100 MG in 0.9% NACL 250ML 250 ML IV SCH (14:39)
[2020-04-04 17:31] VITALS: BP 123/75
[2020-04-04 19:07] VITALS: BP 133/64
[2020-04-04] MEDS: ATORVASTATIN 20 MG TABLET PO SCH (21:08)
[2020-04-04 23:07] VITALS: BP 128/55
[2020-04-05 03:27] VITALS: BP 152/60
[2020-04-05] MEDS: PHARMACY COMMUNICATION MISC SCH (05:08)
[2020-04-05] MEDS: INSULIN HUMULIN R 100 UNIT/ML 3ML SQ SCH ×4 (05:18→20:21)
[2020-04-05] MEDS: LORAZEPAM 2 MG/ML 1 ML VIAL IVP PRN ×2 (05:56→08:35)
[2020-04-05 06:09] LABS: HEMATOCRIT 37.6 % (42-54); MEAN CORPUSCULAR HEMOGLOBIN 28.6 pg (27.0-33.0); MEAN CORPUSCULAR HGB CONC 32.4 g/dL (32.0-36.0); MEAN CORPUSCULAR VOLUME 88.1 fL (79-99); RED BLOOD CELL COUNT(AUTO) 4.27 MIL/uL (4.50-6.20)
[2020-04-05 06:55] LABS: ALBUMIN 2.2 g/dL (3.5-5.0); BILIRUBIN,TOTAL 0.5 mg/dL (0.2-1.0); POTASSIUM 3.7 mmol/L (3.5-5.1); TOTAL PROTEIN, SERUM 5.6 g/dL (6.0-8.3)
[2020-04-05 07:00] VITALS: BP 95/65
[2020-04-05] MEDS: CEFTRIAXONE 1G VIAL IVP SCH (10:47)
[2020-04-05] MEDS: AZITHROMYCIN 500MG+NS 250ML 250 ML IV SCH (10:47)
[2020-04-05] MEDS: DEXAMETHASONE SOD PHOSPHATE 10MG/ML 1ML VIAL IVP SCH ×2 (10:47→20:21)
[2020-04-05] MEDS: QUETIAPINE FUMARATE 25 MG TAB PO SCH ×2 (10:48→20:21)
[2020-04-05] MEDS: ZINC SULFATE 220 CAPSULE PO SCH (10:48)
[2020-04-05] MEDS: ASPIRIN 81MG CHEW TAB PO SCH (10:48)
[2020-04-05] MEDS: ASCORBIC ACID 500 MG TAB PO SCH (10:48)
[2020-04-05] MEDS: ENOXAPARIN SODIUM 40 MG/0.4 ML SYRINGE SQ SCH ×2 (10:48→20:20)
[2020-04-05 11:00] VITALS: BP 157/78
[2020-04-05] MEDS: REMDESIVIR (EUA) 520 100 MG in 0.9% NACL 250ML 250 ML IV SCH (15:10)
[2020-04-05 16:00] VITALS: BP 155/59
[2020-04-05] MEDS: DEXTROSE 5%-WATER 1,000 ML IV SCH ×2 (18:36→23:50)
[2020-04-05 19:06] VITALS: BP 158/79
[2020-04-05] MEDS: ATORVASTATIN 20 MG TABLET PO SCH (20:21)
[2020-04-05 23:18] VITALS: BP 158/64
[2020-04-06] VITALS (7 sets, daily range): BP systolic 140–169; BP diastolic 53–84
[2020-04-06] MEDS: PHARMACY COMMUNICATION MISC SCH (05:08)
[2020-04-06 06:02] LABS: HEMATOCRIT 38.4 % (42-54); MEAN CORPUSCULAR HEMOGLOBIN 28.2 pg (27.0-33.0); MEAN CORPUSCULAR HGB CONC 32.6 g/dL (32.0-36.0); MEAN CORPUSCULAR VOLUME 86.7 fL (79-99); RED BLOOD CELL COUNT(AUTO) 4.43 MIL/uL (4.50-6.20); RED CELL DISTRIBUTION WIDTH 13.7 % (11.0-15.5); WHITE BLOOD COUNT (AUTO) 10.4 K/uL (4.8-10.8)
[2020-04-06 06:22] LABS: ALBUMIN 2.2 g/dL (3.5-5.0); BILIRUBIN,TOTAL 0.5 mg/dL (0.2-1.0); CREATININE 1.1 mg/dL (0.5-1.5); POTASSIUM 3.9 mmol/L (3.5-5.1); TOTAL PROTEIN, SERUM 5.7 g/dL (6.0-8.3)
[2020-04-06] MEDS: INSULIN HUMULIN R 100 UNIT/ML 3ML SQ SCH ×4 (06:31→20:32)
[2020-04-06] MEDS: ASPIRIN 325 MG TABLET PO SCH (09:00)
[2020-04-06] MEDS ORDERED: ASPIRIN 325 MG TABLET ONE (09:30)
[2020-04-06] MEDS: CEFTRIAXONE 1G VIAL IVP SCH (09:38)
[2020-04-06] MEDS: DEXAMETHASONE SOD PHOSPHATE 10MG/ML 1ML VIAL IVP SCH ×2 (09:38→21:21)
[2020-04-06] MEDS: QUETIAPINE FUMARATE 25 MG TAB PO SCH ×2 (09:39→21:21)
[2020-04-06] MEDS: ZINC SULFATE 220 CAPSULE PO SCH (09:39)
[2020-04-06] MEDS: ASCORBIC ACID 500 MG TAB PO SCH (09:40)
[2020-04-06] MEDS: AZITHROMYCIN 500MG+NS 250ML 250 ML IV SCH (09:41)
[2020-04-06] MEDS: ENOXAPARIN SODIUM 40 MG/0.4 ML SYRINGE SQ SCH ×2 (09:49→21:21)
[2020-04-06] MEDS: REMDESIVIR (EUA) 520 100 MG in 0.9% NACL 250ML 250 ML IV SCH (15:31)
[2020-04-06] MEDS: ATORVASTATIN 20 MG TABLET PO SCH (21:21)
[2020-04-07] MEDS: LORAZEPAM 2 MG/ML 1 ML VIAL IVP PRN ×2 (02:19→20:03)
[2020-04-07 03:44] VITALS: BP 133/85
[2020-04-07 06:16] LABS: HEMATOCRIT 43.6 % (42-54); MEAN CORPUSCULAR HEMOGLOBIN 28.7 pg (27.0-33.0); MEAN CORPUSCULAR HGB CONC 32.8 g/dL (32.0-36.0); MEAN CORPUSCULAR VOLUME 87.4 fL (79-99); RED BLOOD CELL COUNT(AUTO) 4.99 MIL/uL (4.50-6.20); RED CELL DISTRIBUTION WIDTH 13.5 % (11.0-15.5); WHITE BLOOD COUNT (AUTO) 12.7 K/uL (4.8-10.8)
[2020-04-07 06:36] LABS: CREATININE 1.2 mg/dL (0.5-1.5); POTASSIUM 4.9 mmol/L (3.5-5.1)
[2020-04-07 07:15] VITALS: BP 176/62
[2020-04-07] MEDS: INSULIN HUMULIN R 100 UNIT/ML 3ML SQ SCH ×4 (07:30→21:00)
[2020-04-07] MEDS: CEFTRIAXONE 1G VIAL IVP SCH (09:13)
[2020-04-07] MEDS: AZITHROMYCIN 500MG+NS 250ML 250 ML IV SCH (09:14)
[2020-04-07] MEDS: ASPIRIN 325 MG TABLET PO SCH (09:14)
[2020-04-07] MEDS: ENOXAPARIN SODIUM 40 MG/0.4 ML SYRINGE SQ SCH ×2 (09:14→20:03)
[2020-04-07] MEDS: QUETIAPINE FUMARATE 25 MG TAB PO SCH ×2 (09:14→20:01)
[2020-04-07] MEDS: ASCORBIC ACID 500 MG TAB PO SCH (09:14)
[2020-04-07] MEDS: ZINC SULFATE 220 CAPSULE PO SCH (09:14)
[2020-04-07] MEDS: DEXAMETHASONE SOD PHOSPHATE 10MG/ML 1ML VIAL IVP SCH ×2 (09:14→20:03)
[2020-04-07 11:30] VITALS: BP 146/64
[2020-04-07] MEDS ORDERED: ZIPRASIDONE MESYLATE 20 MG/VIAL IM SCH (15:00)
[2020-04-07] MEDS ORDERED: DiphenhydrAMINE HCL 50 MG/ML VIAL IM SCH (15:00)
[2020-04-07 16:05] VITALS: BP 157/67
[2020-04-07 20:00] VITALS: BP 146/60
[2020-04-07] MEDS: ATORVASTATIN 20 MG TABLET PO SCH (20:00)
[2020-04-07 23:32] VITALS: BP 114/34
[2020-04-08] VITALS (7 sets, daily range): BP systolic 122–154; BP diastolic 41–78
[2020-04-08] MEDS: INSULIN HUMULIN R 100 UNIT/ML 3ML SQ SCH ×4 (07:30→21:00)
[2020-04-08] MEDS ORDERED: 0.9%NACL 10ML VIAL ONE (09:32)
[2020-04-08] MEDS: CEFTRIAXONE 1G VIAL IVP SCH (09:36)
[2020-04-08] MEDS: ASPIRIN 325 MG TABLET PO SCH (09:36)
[2020-04-08] MEDS: ASCORBIC ACID 500 MG TAB PO SCH (09:36)
[2020-04-08] MEDS: ZINC SULFATE 220 CAPSULE PO SCH (09:36)
[2020-04-08] MEDS: DEXAMETHASONE SOD PHOSPHATE 10MG/ML 1ML VIAL IVP SCH ×2 (09:36→20:18)
[2020-04-08] MEDS: QUETIAPINE FUMARATE 25 MG TAB PO SCH ×2 (09:37→20:18)
[2020-04-08] MEDS: ENOXAPARIN SODIUM 40 MG/0.4 ML SYRINGE SQ SCH ×2 (09:37→20:18)
[2020-04-08] MEDS: AZITHROMYCIN 500MG+NS 250ML 250 ML IV SCH (09:38)
[2020-04-08] MEDS: LORAZEPAM 2 MG/ML 1 ML VIAL IVP PRN (10:17)
[2020-04-08] MEDS: ZIPRASIDONE MESYLATE 20 MG/VIAL IM SCH (12:39)
[2020-04-08] MEDS: DiphenhydrAMINE HCL 50 MG/ML VIAL IM SCH (12:39)
[2020-04-08] MEDS: ATORVASTATIN 20 MG TABLET PO SCH (20:18)
[2020-04-09 00:23] VITALS: BP 154/76
[2020-04-09] MEDS: LORAZEPAM 2 MG/ML 1 ML VIAL IVP PRN ×2 (01:27→07:53)
[2020-04-09 03:53] VITALS: BP 138/67
[2020-04-09 05:31] LABS: BASOPHILS % (AUTO) 0.3 % (0.0-5.0); HEMATOCRIT 44.2 % (42-54); LYMPHOCYTES % (AUTO) 5.1 % (21.0-51.0); MEAN CORPUSCULAR HEMOGLOBIN 28.7 pg (27.0-33.0); MEAN CORPUSCULAR HGB CONC 32.6 g/dL (32.0-36.0); MEAN CORPUSCULAR VOLUME 88.2 fL (79-99); MONOCYTES % (AUTO) 4.9 % (3.0-13.0); NEUTROPHILS % (AUTO) 86.8 % (40.0-77.0); PLATELET COUNT (AUTO) 602 K/uL (130-400); RED BLOOD CELL COUNT(AUTO) 5.01 MIL/uL (4.50-6.20); RED CELL DISTRIBUTION WIDTH 13.9 % (11.0-15.5)
[2020-04-09 05:52] LABS: ALBUMIN 2.7 g/dL (3.5-5.0); BILIRUBIN,TOTAL 0.7 mg/dL (0.2-1.0); CREATININE 1.2 mg/dL (0.5-1.5); POTASSIUM 4.3 mmol/L (3.5-5.1); TOTAL PROTEIN, SERUM 6.4 g/dL (6.0-8.3)
[2020-04-09] MEDS: INSULIN HUMULIN R 100 UNIT/ML 3ML SQ SCH ×4 (06:58→20:23)
[2020-04-09 08:00] VITALS: BP 166/70
[2020-04-09] MEDS: ASCORBIC ACID 500 MG TAB PO SCH (09:37)
[2020-04-09] MEDS: ASPIRIN 325 MG TABLET PO SCH (09:37)
[2020-04-09] MEDS: QUETIAPINE FUMARATE 25 MG TAB PO SCH ×2 (09:37→19:20)
[2020-04-09] MEDS: ZINC SULFATE 220 CAPSULE PO SCH (09:37)
[2020-04-09] MEDS: ENOXAPARIN SODIUM 40 MG/0.4 ML SYRINGE SQ SCH ×2 (09:38→20:27)
[2020-04-09] MEDS: AZITHROMYCIN 500MG+NS 250ML 250 ML IV SCH (09:38)
[2020-04-09] MEDS: DEXAMETHASONE SOD PHOSPHATE 10MG/ML 1ML VIAL IVP SCH ×2 (09:38→19:22)
[2020-04-09] MEDS ORDERED: PRED20TA3 PO (11:14)
[2020-04-09 11:17] VITALS: BP 142/63
[2020-04-09] MEDS: DiphenhydrAMINE HCL 50 MG/ML VIAL IM SCH (11:17)
[2020-04-09] MEDS: ZIPRASIDONE MESYLATE 20 MG/VIAL IM SCH (11:17)
[2020-04-09] MEDS: CEFTRIAXONE 1G VIAL IVP SCH (11:51)
[2020-04-09] MEDS: ATORVASTATIN 20 MG TABLET PO SCH (19:23)
[2020-04-09 20:04] VITALS: BP 149/74
[2020-04-10 00:02] VITALS: BP 116/53
[2020-04-10 00:04] VITALS: BP 116/53
== END 2020-04-10 00:16 | disposition home or self-care (01) | DRG 177 ==
LOC: EDH 11:30 → EDHIP 14:58 → 4AH 21:52 → 4BH 04-03 18:36
PROVIDERS: ADMIT Internal Medicine Critical Care Medicine; ATTEND Internal Medicine Critical Care Medicine
PROC: XW033E5 Introduction of Remdesivir Anti-infective into Peripheral Vein, Percutaneous Approach, New Technology Group 5 (ICD-10-PCS; principal; 2020-04-02)
PROC: XW13325 Transfusion of Convalescent Plasma (Nonautologous) into Peripheral Vein, Percutaneous Approach, New Technology Group 5 (ICD-10-PCS; 2020-04-03)
DX: U07.1 COVID-19 (principal); J96.01 Acute respiratory failure with hypoxia; J12.82 Pneumonia due to coronavirus disease 2019; I63.511 Cerebral infarction due to unspecified occlusion or stenosis of right middle cerebral artery; I50.33 Acute on chronic diastolic (congestive) heart failure; D68.59 Other primary thrombophilia; R00.1 Bradycardia, unspecified; D64.9 Anemia, unspecified; K21.9 Gastro-esophageal reflux disease without esophagitis; I11.0 Hypertensive heart disease with heart failure; D72.810 Lymphocytopenia; L89.90 Pressure ulcer of unspecified site, unspecified stage; I65.21 Occlusion and stenosis of right carotid artery; G93.89 Other specified disorders of brain; R53.81 Other malaise; E78.5 Hyperlipidemia, unspecified; Z79.899 Other long term (current) drug therapy
CPT/HCPCS: 36415; 36430; 36600; 70450; 70496; 70498; 70551; 71045; 71250; 80048; 80053; 80061; 80076; 81001; 82550; 82565; 82728; 82803; 82948; 83036; 83605; 83615; 83874; 83880; 84145; 84484; 85025; 85027; 85378; 85610; 85730; 86140; 86850; 86900; 86901; 86927; 87040; 87088; 87426; 92507; 92522; 92526; 92610; 93005; 93306; 93356; 93970; A9579; G0378; J0456; J0696; J1100; J1200; J1630; J1650; J1815; J1940; J2060; J3486; J7050; J7070; Q9967

== ENCOUNTER 2021-05-26 11:06 | Emergency (ER) | payer OTHER ==
[~2021-05-26 11:06] MED LIST changes: +PRED20TA3 PO
[2021-05-26 11:41] LABS: BASOPHILS % (AUTO) 0.5 % (0.0-5.0); EOSINOPHILS % (AUTO) 0.2 % (0.0-8.0); HEMATOCRIT 43.7 % (42-54); LYMPHOCYTES % (AUTO) 12.1 % (21.0-51.0); MEAN CORPUSCULAR HEMOGLOBIN 28.4 pg (27.0-33.0); MEAN CORPUSCULAR HGB CONC 31.4 g/dL (32.0-36.0); MEAN CORPUSCULAR VOLUME 90.5 fL (79-99); MONOCYTES % (AUTO) 11.1 % (3.0-13.0); NEUTROPHILS % (AUTO) 75.9 % (40.0-77.0); PLATELET COUNT (AUTO) 210 K/uL (130-400); RED BLOOD CELL COUNT(AUTO) 4.83 MIL/uL (4.50-6.20); RED CELL DISTRIBUTION WIDTH 13.9 % (11.0-15.5); WHITE BLOOD COUNT (AUTO) 9.8 K/uL (4.8-10.8)
[2021-05-26 11:49] LABS: CREATININE 1.8 mg/dL (0.5-1.5)
[2021-05-26 11:59] LABS: ALBUMIN 3.5 g/dL (3.5-5.0); BILIRUBIN,TOTAL 0.4 mg/dL (0.2-1.0); TOTAL PROTEIN, SERUM 7.1 g/dL (6.0-8.3)
[2021-05-26] MEDS ORDERED: 0.9%NACL 1000ML 1,000 ML IV ONE (12:00)
[2021-05-26] MEDS ORDERED: ACETAMINOPHEN 325 MG TAB ONE (12:20)
[2021-05-26 13:34] LABS: APPEARANCE,URINE CLEAR (CLEAR); BILIRUBIN,URINE NEGATIVE (NEGATIVE); COLOR,URINE YELLOW (YELLOW); GLUCOSE, URINE (UA) NEGATIVE (NEGATIVE); KETONES,URINE 5 mg/dL (NEGATIVE); LEUKOCYTE ESTERASE ,URINE NEGATIVE (NEGATIVE); NITRATE,URINE NEGATIVE (NEGATIVE); OCCULT BLOOD,URINE SMALL (NEGATIVE); PH,URINE 5.5 (5.0-8.0); PROTEIN,URINE NEGATIVE (NEGATIVE); UROBILINOGEN,URINE 0.2 mg/dL (0.2-1.0)
[2021-05-26 13:36] LABS: BACTERIA,URINE Rare /HPF (None Seen); RBC,URINE 0-1 /HPF (0-1); SQUAMOUS EPITHELIAL CELL,UR Rare /HPF (0-2); WBC,URINE 0-1 /HPF (0-1)
[2021-05-26] MEDS ORDERED: OSEL75 PO (13:46)
[2021-05-26] MEDS ORDERED: ACET-66 PO (13:46)
[2021-05-26 15:05] VITALS: BP 135/78
== END 2021-05-26 15:21 | disposition home or self-care (01) ==
LOC: EDH 11:06
DX: J10.1 Influenza due to other identified influenza virus with other respiratory manifestations (principal); Z20.822 Contact with and (suspected) exposure to COVID-19; J84.9 Interstitial pulmonary disease, unspecified; F03.90 Unspecified dementia, unspecified severity, without behavioral disturbance, psychotic disturbance, mood disturbance, and anxiety; R41.82 Altered mental status, unspecified; Z79.82 Long term (current) use of aspirin; Z79.52 Long term (current) use of systemic steroids
CPT/HCPCS: 36415; 71045; 80053; 81001; 82550; 83605; 83874; 84484; 85025; 87040 ×2; 87635; 87804 ×2; 87880; 93005; 96360; 96361; 99285; C9803; J7030

== ENCOUNTER 2022-07-04 14:04 | Emergency (ER) | payer OTHER ==
[~2022-07-04] VITALS: Ht 175.3 cm; Wt 95.3 kg
[~2022-07-04 14:04] MED LIST changes: +ACET-66 PO; -CILO100T PO; +CILO100T3 PO; +OSEL75 PO
[2022-07-04 14:25] VITALS: BP 106/77
[2022-07-04 14:57] LABS: BASOPHILS % (AUTO) 0.9 % (0.0-5.0); EOSINOPHILS % (AUTO) 3.1 % (0.0-8.0); HEMATOCRIT 41.3 % (42-54); LYMPHOCYTES % (AUTO) 35.8 % (21.0-51.0); MEAN CORPUSCULAR HEMOGLOBIN 28.6 pg (27.0-33.0); MEAN CORPUSCULAR HGB CONC 31.7 g/dL (32.0-36.0); MEAN CORPUSCULAR VOLUME 90.2 fL (79-99); MONOCYTES % (AUTO) 6.6 % (3.0-13.0); NEUTROPHILS % (AUTO) 53.4 % (40.0-77.0); PLATELET COUNT (AUTO) 246 K/uL (130-400); RED BLOOD CELL COUNT(AUTO) 4.58 MIL/uL (4.50-6.20); RED CELL DISTRIBUTION WIDTH 13.7 % (11.0-15.5); WHITE BLOOD COUNT (AUTO) 6.5 K/uL (4.8-10.8)
[2022-07-04 15:14] LABS: CREATININE 1.5 mg/dL (0.5-1.5)
[2022-07-04 15:23] LABS: TOTAL PROTEIN, SERUM 6.9 g/dL (6.0-8.3)
[2022-07-04] MEDS ORDERED: 0.9% NACL 500ML IV.SOLN 500 ML IV SCH (16:00)
[2022-07-04 17:40] LABS: APPEARANCE,URINE CLEAR (CLEAR); BILIRUBIN,URINE NEGATIVE (NEGATIVE); COLOR,URINE YELLOW (YELLOW); GLUCOSE, URINE (UA) NEGATIVE (NEGATIVE); KETONES,URINE NEGATIVE (NEGATIVE); LEUKOCYTE ESTERASE ,URINE 250 Leu/uL (NEGATIVE); NITRATE,URINE NEGATIVE (NEGATIVE); PROTEIN,URINE 10 mg/dL (NEGATIVE); UROBILINOGEN,URINE 0.2 mg/dL (0.2-1.0)
[2022-07-04 17:47] LABS: BACTERIA,URINE RARE /HPF (None Seen); MUCUS,URINE RARE LPF (None Seen); SQUAMOUS EPITHELIAL CELL,UR RARE /HPF (0-2); YEAST,URINE BUDDING FEW /HPF (None Seen)
[2022-07-04] MEDS ORDERED: CEFTRIAXONE 1G VIAL IVP ONE (18:30)
[2022-07-04] MEDS ORDERED: CEPH500B PO (19:03)
== END 2022-07-04 19:30 | disposition home or self-care (01) ==
LOC: EDH 14:04
DX: N39.0 Urinary tract infection, site not specified (principal); R10.9 Unspecified abdominal pain; E86.0 Dehydration; I12.9 Hypertensive chronic kidney disease with stage 1 through stage 4 chronic kidney disease, or unspecified chronic kidney disease; N18.9 Chronic kidney disease, unspecified; F03.90 Unspecified dementia, unspecified severity, without behavioral disturbance, psychotic disturbance, mood disturbance, and anxiety; K80.20 Calculus of gallbladder without cholecystitis without obstruction; Z79.82 Long term (current) use of aspirin; Z79.899 Other long term (current) drug therapy
CPT/HCPCS: 99285; 70450; 96374; 71045; 96361; 84484; 80053; 83690; 85025; 87077; 87088; 87186; 81001; 36415; 74176; 93005; J7040; J0696

== ENCOUNTER 2022-09-16 18:33 | Emergency (ER) | payer OTHER ==
[~2022-09-16] VITALS: Ht 172.7 cm; Wt 86.2 kg
[~2022-09-16 18:33] MED LIST changes: +CEPH500B PO
[2022-09-16 19:11] VITALS: BP 149/50
[2022-09-16 19:17] LABS: ALBUMIN 3.5 g/dL (3.5-5.0); CREATININE 1.3 mg/dL (0.5-1.5); POTASSIUM 4.2 mmol/L (3.5-5.1); TOTAL PROTEIN, SERUM 6.7 g/dL (6.0-8.3)
[2022-09-16 19:21] LABS: EOSINOPHILS % (AUTO) 1.9 % (0.0-8.0); HEMATOCRIT 42.6 % (42-54); LYMPHOCYTES % (AUTO) 28.2 % (21.0-51.0); MEAN CORPUSCULAR HEMOGLOBIN 27.9 pg (27.0-33.0); MEAN CORPUSCULAR HGB CONC 31.9 g/dL (32.0-36.0); MEAN CORPUSCULAR VOLUME 87.3 fL (79-99); MONOCYTES % (AUTO) 8.8 % (3.0-13.0); NEUTROPHILS % (AUTO) 59.6 % (40.0-77.0); PLATELET COUNT (AUTO) 246 K/uL (130-400); RED BLOOD CELL COUNT(AUTO) 4.88 MIL/uL (4.50-6.20); RED CELL DISTRIBUTION WIDTH 14.3 % (11.0-15.5); WHITE BLOOD COUNT (AUTO) 8.4 K/uL (4.8-10.8)
[2022-09-16 19:32] LABS: INR 0.94 (0.85-1.15); PROTHROMBIN TIME 10.9 SEC (9.6-11.6)
[2022-09-16 19:34] LABS: PARTIAL THROMBOPLASTIN TIME 27.9 SEC (26.3-35.5)
[2022-09-16] MEDS ORDERED: ACET-2743 PO (21:04)
[2022-09-16] MEDS ORDERED: VANCOMYCIN 1G/250ML KIT 250 ML IV ONE (22:38)
[2022-09-16] MEDS ORDERED: ZOSYN 3.375GM+NS 50ML 50 ML IVPB ONE (22:38)
== END 2022-09-17 00:27 | disposition home or self-care (01) ==
LOC: EDH 18:33
DX: S60.211A Contusion of right wrist, initial encounter (principal); S09.90XA Unspecified injury of head, initial encounter; F03.90 Unspecified dementia, unspecified severity, without behavioral disturbance, psychotic disturbance, mood disturbance, and anxiety; I10 Essential (primary) hypertension; Z79.52 Long term (current) use of systemic steroids; Z79.82 Long term (current) use of aspirin; Z86.73 Personal history of transient ischemic attack (TIA), and cerebral infarction without residual deficits; W18.39XA Other fall on same level, initial encounter; Y92.89 Other specified places as the place of occurrence of the external cause; Y93.01 Activity, walking, marching and hiking; Y99.8 Other external cause status
CPT/HCPCS: 36415; 70450; 71045; 72125; 72170; 73030; 73110; 80053; 82550; 85025; 85610; 85730; 93005; J2543; J3370

== ENCOUNTER → 2023-01-27 | Outpatient (CLI) | payer OTHER ==
[~2023-01-27] MED LIST changes: +ACET-2743 PO; -ACET-66 PO; -CARAL PO; -CEPH500B PO; -FERR325T22 PO; -OSEL75 PO; +REGADENOSON 0.4 MG/5 ML PF SYG IVP ONE
== END | disposition home or self-care (01) ==
LOC: SHCH 08:07
PROVIDERS: ATTEND Internal Medicine Cardiovascular Disease
DX: I25.10 Atherosclerotic heart disease of native coronary artery without angina pectoris (principal)
CPT/HCPCS: 78452; 93017; J2785; A9500 ×2; 96374

== ENCOUNTER → 2023-02-06 | Outpatient (CLI) | payer OTHER ==
[~2023-02-06] MED LIST changes: -REGADENOSON 0.4 MG/5 ML PF SYG IVP ONE
== END | disposition home or self-care (01) ==
LOC: SHCH 07:50
PROVIDERS: ATTEND Internal Medicine Cardiovascular Disease
DX: I70.203 Unspecified atherosclerosis of native arteries of extremities, bilateral legs (principal)
CPT/HCPCS: 93925

== ENCOUNTER 2023-09-10 12:52 | Emergency (ER) | payer OTHER ==
[~2023-09-10] VITALS: Ht 182.9 cm; Wt 81.6 kg
[2023-09-10 13:25] LABS: BASOPHILS # (AUTO) 0.06 K/uL (0.00-0.20); BASOPHILS % (AUTO) 0.4 % (0.0-5.0); EOSINOPHILS # (AUTO) 0.02 K/uL (0.00-0.70); EOSINOPHILS % (AUTO) 0.1 % (0.0-8.0); HEMATOCRIT 38.5 % (42-54); IMMATURE GRANULOCYTE ABSOLUTE 0.08 K/uL (0-1); LYMPHOCYTES # (AUTO) 1.3 K/uL (1.0-4.8); LYMPHOCYTES % (AUTO) 8.1 % (21.0-51.0); MEAN CORPUSCULAR HEMOGLOBIN 29.9 pg (27.0-33.0); MEAN CORPUSCULAR VOLUME 90.6 fL (79-99); MONOCYTES % (AUTO) 6.4 % (3.0-13.0); NEUTROPHILS # (AUTO) 13.2 K/uL (1.8-7.7); NEUTROPHILS % (AUTO) 84.5 % (40.0-77.0); PLATELET COUNT (AUTO) 215 K/uL (130-400); RED BLOOD CELL COUNT(AUTO) 4.25 MIL/uL (4.50-6.20); RED CELL DISTRIBUTION WIDTH 13.9 % (11.0-15.5); WHITE BLOOD COUNT (AUTO) 15.6 K/uL (4.8-10.8)
[2023-09-10] MEDS: 0.9%NACL 1000ML 1,000 ML IV ONE (13:29)
[2023-09-10 13:45] LABS: CREATININE 1.5 mg/dL (0.5-1.3); POTASSIUM 5.1 mmol/L (3.5-5.1)
[2023-09-10 13:50] LABS: ALBUMIN 3.3 g/dL (3.5-5.0); BILIRUBIN,TOTAL 0.6 mg/dL (0.2-1.0); TOTAL PROTEIN, SERUM 5.9 g/dL (6.0-8.3)
[2023-09-10 14:49] LABS: BILIRUBIN,URINE NEGATIVE (NEGATIVE); COLOR,URINE YELLOW (YELLOW); GLUCOSE, URINE (UA) NEGATIVE (NEGATIVE); KETONES,URINE NEGATIVE (NEGATIVE); LEUKOCYTE ESTERASE ,URINE 500 Leu/uL (NEGATIVE); NITRATE,URINE NEGATIVE (NEGATIVE); OCCULT BLOOD,URINE SMALL (NEGATIVE); PROTEIN,URINE 20 mg/dL (NEGATIVE); UROBILINOGEN,URINE 0.2 mg/dL (0.2-1.0)
[2023-09-10 14:54] LABS: APPEARANCE,URINE HAZY (CLEAR)
[2023-09-10 14:55] LABS: ADD UA MICROSCOPIC YES
[2023-09-10 15:16] VITALS: BP 115/50; PULSE 72; RESP 16; O2SAT 97
[2023-09-10 15:18] LABS: BACTERIA,URINE FEW /HPF (None Seen); MUCUS,URINE RARE LPF (None Seen); SQUAMOUS EPITHELIAL CELL,UR FEW /HPF (0-2); WBC CLUMP FEW /HPF (0-1); WBC,URINE TNTC /HPF (0-1)
[2023-09-10] MEDS ORDERED: AMOX1TAB16 PO (15:18)
[2023-09-10] MEDS: AMOX/CLAV 875/125MG TAB PO ONE (15:23)
== END 2023-09-10 16:12 | disposition home or self-care (01) ==
LOC: EDH 12:52
DX: N30.01 Acute cystitis with hematuria (principal); I12.9 Hypertensive chronic kidney disease with stage 1 through stage 4 chronic kidney disease, or unspecified chronic kidney disease; N18.9 Chronic kidney disease, unspecified; F03.90 Unspecified dementia, unspecified severity, without behavioral disturbance, psychotic disturbance, mood disturbance, and anxiety
CPT/HCPCS: 99284; 96360; 70450; 96361; 84484; 80053; 85025; 87086 ×2; 87186; 81001; 36415; 93005; J7030

== ENCOUNTER 2024-03-21 11:38 | Emergency (ER) | payer OTHER ==
[~2024-03-21] VITALS: Ht 182.9 cm; Wt 78.9 kg
[~2024-03-21 11:38] MED LIST changes: +AMOX1TAB16 PO
--- NOTE | 2024-03-21 12:09 | ERN ---
General Chief Complaint: Abdominal Pain Stated Complaint: ABD PAIN Time Seen by MD: 11:46 History of Present Illness Initial Comments 88M presents for abd pain. Patient reports left-sided abdominal pain near the left flank area in the left frontal abdomen. No nausea or vomiting fevers diarrhea or dysuria. Does report a bit of sore throat and body aches beginning yesterday. Denies surgical history. Allergies: Coded Allergies: No Known Allergies (Unverified Allergy, Unknown, 07/01/22) No Known Drug Allergies (Verified Allergy, Unknown, 02/16/18) Home Meds Active Scripts Amoxicillin/Potassium Clav (Amox Tr-K Clv 875-125 mg Tab) 875 Mg-125 Mg Tablet, 1 EACH PO BID for 7 Days, #14 TAB 0 Refills Prov:KATARINA REBOLLEDO ECHOCARDIOGRAPHER 09/10/23 Acetaminophen (Tylenol Extra Strength) 500 Mg Tablet, 500 MG PO Q4HPRN PRN for PAIN, #40 TAB Prov:CHEMA ALEGRIA MD 09/16/22 Pantoprazole Sodium (Protonix) 40 Mg Tablet., 40 MG PO ACBKFST for 15 Days, #15 TAB Prov:LIGIA SOTO ECHOCARDIOGRAPHER 06/04/19 Reported Medications Prednisone (Prednisone) 20 Mg Tablet, 20 MG PO DAILY for 30 Days, #30 TAB 04/09/20 Cilostazol (Cilostazol) 100 Mg Tablet, 100 MG PO BIDAC, TAB 05/31/19 Cholecalciferol (Vitamin D3) (Vitamin D) 50,000 Unit Capsule, 34891 UNIT PO QWEEK, CAP 08/14/18 Atorvastatin Calcium (Atorvastatin Calcium) 20 Mg Tablet, 20 MG PO NOON, TAB 08/14/18 Aspirin (Aspir 81) 81 Mg Tablet.dr, 81 MG PO DAILY, TAB 08/14/18 Isosorbide Mononitrate (Isosorbide Mononitrate ER) 30 Mg Tab.er.24h, 30 MG PO HS, TAB 08/14/18 Past Medical History Past Medical History: Anxiety, GERD, High Cholesterol, Other Medical History Other: DEMENTIA, BPH Past Surgical History: None Family History Family History: CAD, HTN Social History Social History: Negative, Lives with family ROS Dictation CONSTITUTIONAL: No chills, no fever, no weakness, no diaphoresis, no malaise. HEAD/FACE: No signs of trauma. EENT: No eye pain, no blurred vision, no tearing, no double vision, no ear pain, no ear discharge, no nose pain, no nasal congestion, no throat pain, no throat swelling, no mouth pain. RESPIRATORY: No cough, no orthopnea, no SOB, no stridor, no wheezing. CARDIOVASCULAR: No chest pain, no edema, no palpitations, no syncope. GASTROINTESTINAL/ABDOMINAL: Left-sided abdominal pain GENITOURINARY: No abnormal discharge, no dysuria, no frequent urination, no hematuria. No complaints of pain in the genitals. MUSCULOSKELETAL: No back pain, no gout, no joint pain, no joint swelling, no muscle pain, no muscle stiffness, no neck pain. INTEGUMENTARY: No change in color, no change in hair/nails, no dryness, no lesion, no lumps, no rash. NEUROLOGICAL/PSYCH: No anxiety, not depressed, no emotional problem, no headache, no numbness, no pre-existing deficit, no history of seizures, no tremors, no weakness. HEMATOLOGIC/LYMPHATIC: Not anemic, no history of blood clots, no apparent bleeding, no bruising, glands not swollen. All Systems Negative, Except as Noted. Physical Exam Physical Exam Dictation VITAL SIGNS: Reviewed. GENERAL APPEARANCE: Alert, oriented x3, no acute distress EYES: PERRL, pink conjunctivas, eyelid no trauma, anterior chamber clear. EARS: Pinnas intact and no signs of trauma or erythema. Ear canals clear and no discharge. TMs no erythema. NOSE: No discharge, no bleeding. OROPHARYNX: Mouth normal, teeth no caries, tongue pink. Pharynx clear, no erythema. Tonsils no exudates, no abscesses noted. Mucous membrane moist. NECK: Supple, non-tender, no thyromegaly, no masses, no JVD, no bruits. BREAST: Deferred. CHEST: No tenderness, no crepitus, no paradoxical movement, no retractions. LUNGS: Clear, well-ventilated, symmetric, no rales, no wheezing, no rhonchi, no stridor, good breath sounds bilaterally. HEART: Regular rate, regular rhythm, no murmur, no gallops. VASCULAR: No peripheral edema. ABDOMEN: Soft, positive bowel sounds, nondistended, no guarding, nontender, no rebound, no masses no hepatomegaly, no splenomegaly, no Barnes's sign, no hernias. RECTAL: Deferred. GENITAL: Deferred. NEUROLOGICAL: Normal speech, gross motor function intact, gross sensory function intact. MUSCULOSKELETAL: Neck nontender, full range of motion, back nontender, full range of motion. EXTREMITIES: Nontender, full range of motion. SKIN: Color pink, dry, no turgor, no rash, no lacerations, no abrasions, no contusions. LYMPHATICS: Deferred. Results Laboratory and Microbiology Lab and Micro Result Laboratory Tests Test 03/21/24 12:03 03/21/24 12:30 White Blood Count 11.8 K/uL (4.8-10.8) H Red Blood Count 4.13 MIL/uL (4.50-6.20) L Hemoglobin 12.0 g/dL (14.0-18.0) L Hematocrit 37.2 % (42-54) L Mean Corpuscular Volume 90.1 fL (79-99) Mean Corpuscular Hemoglobin 29.1 pg (27.0-33.0) Mean Corpuscular Hemoglobin Concent 32.3 g/dL (32.0-36.0) Red Cell Distribution Width 14.9 % (11.0-15.5) Platelet Count 215 K/uL (130-400) Mean Platelet Volume 9.0 fL (7.5-10.5) Immature Granulocyte % (Auto) 0.4 % (0-1) Neutrophils (%) (Auto) 83.7 % (40.0-77.0) H Lymphocytes (%) (Auto) 7.7 % (21.0-51.0) L Monocytes (%) (Auto) 6.5 % (3.0-13.0) Eosinophils (%) (Auto) 1.4 % (0.0-8.0) Basophils (%) (Auto) 0.3 % (0.0-5.0) Neutrophils # (Auto) 9.9 K/uL (1.8-7.7) H Lymphocytes # (Auto) 0.9 K/uL (1.0-4.8) L Monocytes # (Auto) 0.8 K/uL (0.1-1.0) Eosinophils # (Auto) 0.16 K/uL (0.00-0.70) Basophils # (Auto) 0.04 K/uL (0.00-0.20) Absolute Immature Granulocyte (auto 0.05 K/uL (0-1) Nucleated Red Blood Cells 0.0 % (0.0-0.19) White Cell Morphology Comment See comments Urine Color LIGHT-YELLOW (YELLOW) Urine Appearance CLEAR (CLEAR) Urine pH 5.0 (5.0-8.0) Urine Specific [place] 1.021 (1.001-1.031) Urine Protein 10 mg/dL (NEGATIVE) H Urine Glucose (UA) NEGATIVE mg/dL (NEGATIVE) Urine Ketones NEGATIVE mg/dL (NEGATIVE) Urine Occult Blood NEGATIVE (NEGATIVE) Urine Nitrate NEGATIVE (NEGATIVE) Urine Bilirubin NEGATIVE mg/dL (NEGATIVE) Urine Urobilinogen 0.2 mg/dL (0.2-1.0) Urine Leukocyte Esterase 25 Vini/uL (NEGATIVE) H Urine RBC 2-5 /HPF (0-1) H Urine WBC 2-5 /HPF (0-1) H Urine Squamous Epithelial Cells RARE /HPF (0-2) Urine Bacteria None /HPF (None Seen) Sodium Level 145 mmol/L (136-145) Potassium Level 3.7 mmol/L (3.5-5.1) Chloride Level 108 mmol/L (101-111) Carbon Dioxide Level 30 mmol/L (21-32) Blood Urea Nitrogen 52 mg/dL (7-18) H Creatinine 1.9 mg/dL (0.5-1.3) H Glomerular Filtration Rate Calc 34 mL/min (>90) Random Glucose 134 mg/dL (70-105) H Total Calcium 9.0 mg/dL (8.5-10.1) Total Bilirubin 0.6 mg/dL (0.2-1.0) Direct Bilirubin 0.1 mg/dL (0.0-0.3) Aspartate Amino Transf (AST/SGOT) 21 U/L (10-37) Alanine Aminotransferase (ALT/SGPT) 19 U/L (12-78) Alkaline Phosphatase 95 U/L (50-136) Total Creatine Kinase 44 U/L (21-232) # Troponin I High Sensitivity 9 ng/L (4-75) Total Protein 6.6 g/dL (6.0-8.3) Albumin 2.5 g/dL (3.5-5.0) L Lipase 24 U/L (16-77) Influenza Type A Antigen Negative For Type A Influenza Type B Antigen Positive For Type B SARS-CoV-2 Antigen (Rapid) PRESUMPTIVE NEGATIVE MDM CC: abd pain Historian: patient Comorbidities: advanced age, DLD, CAD, HTN Differential diagnosis: Gastritis, surgical pathology, sepsis, pneumonia, other Labs show leukocytosis 11.8 1000, left shift. No bands. Normocytic anemia hemoglobin of 12. Chemistry shows a creatinine 1.9 BUN of 52, FRANCK. The lipase is normal liverl enzymes are normal. Urinalysis does show some leuk esterase but otherwise unremarkable. Flu and SARS are negative. All labs independently ordered and interpreted by me. CXR ( independently ordered and interpreted by me ): No acute abnormalities or focal infiltrates. CT scan shows some lower lobe infiltrates in the right otherwise no acute abnormalities. There is no abdominal pathology noted. Patient received IV fluids in the ER. Low suspicion for ACS or chest pain. There is no signs of surgical pathology. Patient was stable. We will discharge with antibiotics due to the CT scan finding. We will discharge with pain control recommend PCP follow up. Offered admission to the patient but he prefers discharge at this time. REASON: Abdominal Pain ORDERING PHYSICIAN: CLARISSA NICHOLS DO PROCEDURE: ABD PEL W - CT ABDOMEN/PELVIS W/CONTRAST CT ABDOMEN/PELVIS W/CONTRAST REASON: Abdominal Pain COMPARISON: None. TECHNIQUE: Images are obtained from lung bases to symphysis pubis following IV contrast, 75 cc Omnipaque 350. FINDINGS: There is acute appearing focal infiltrate in superior segment of the left lower lobe, this could represent early or mild pneumonia. Lung bases are otherwise clear. There are no focal liver lesions. There are normal-appearing kidneys.. Spleen and pancreas appear unremarkable. There is nodularity in the gallbladder wall which may represent adenomyomatosis, there are no definite stones, gallbladder ultrasound may be helpful for further evaluation in this regard. There is mild sigmoid diverticulosis without evidence of diverticulitis. Bowel loops appear otherwise unremarkable. The appendix was not separately identified. There is no evidence of free fluid or intraperitoneal air. There are no focal fluid collections. Aorta and retroperitoneum appear normal as do pelvic soft tissue structures. The anterior abdominal wall is intact. Osseous structures appear unremarkable. IMPRESSION: 1. No acute finding in the abdomen or pelvis. 2. Focal infiltrates superior segment of the right lower lobe which could represent acute pneumonia. 3. Nodularity in the gallbladder wall which could be adenomyomatosis, gallbladder ultrasound would be helpful for further evaluation, there is no evidence of wall thickening or edema to suggest acute cholecystitis. 4. Mild sigmoid diverticulosis without evidence of diverticulitis. REASON: abd pain ORDERING PHYSICIAN: CLARISSA NICHOLS DO PROCEDURE: CXR1VW - CHEST 1VW CHEST 1VW REASON: abd pain COMPARISON: 09/16/2022 FINDINGS: Single view of the chest was obtained. Lungs are clear. Heart size is normal. There is no pulmonary vascular congestion. Mediastinum and bony thorax appear unremarkable. IMPRESSION: 1. Normal single view chest x-ray. ED Course Orders Procedure Category Date Status Time Cbc With Differential LAB 03/21/24 Complete 11:49 Troponin I High LAB 03/21/24 Complete Sensitivity 11:49 Urinalysis Profile LAB 03/21/24 Complete 11:49 Ct Abdomen/Pelvis CT 03/21/24 Resulted W/Contrast 11:49 12 Lead Ekg Tracing- EKG 03/21/24 Complete Technical 11:49 0.9%Nacl 1000ml (Ns PHA 03/21/24 Complete 1000ml) 12:00 Creatine Kinase, Total LAB 03/21/24 Complete 11:49 Chest 1vw RAD 03/21/24 Resulted 11:49 Lipase LAB 03/21/24 Complete 11:49 Basic Metabolic Panel LAB 03/21/24 Complete 11:49 Hepatic Function Panel LAB 03/21/24 Complete 11:49 Influenza Type A & B, LAB 03/21/24 In Process Rapid 12:08 Covid19 (Sars Antigen LAB 03/21/24 In Process Rapid) 12:08 Iohexol (Omnipaque) PHA 03/21/24 Complete 13:05 Current Medications Medications (Trade) Dose Ordered Sig/Dayanna Route PRN Reason Start Time Stop Time Status Last Admin Dose Admin Iohexol (Omnipaque) 75 ml STK-MED ONCE IV 03/21/24 13:05 03/21/24 13:05 DC Sodium Chloride 1,000 ml @ 0 mls/hr ONCE ONCE IV 03/21/24 12:00 03/21/24 12:01 DC 03/21/24 12:19 Vital Signs Date Time Temp Pulse Resp B/P (MAP) Pulse Ox O2 Delivery O2 Flow Rate FiO2 03/21/24 13:37 97.9 56 18 141/48 99 Room Air* 0 21 03/21/24 11:38 97.7 68 16 153/45 99 Room Air* 0 21 03/21/24 11:38 97.7 68 16 153/45 99 Room Air 0 DX & DISP Disposition: Discharge Departure Impression: Primary Impression: CKD (chronic kidney disease) Additional Impressions: Pneumonia, UTI (urinary tract infection) Condition: Stable Scripts Amoxicillin/Potassium Clav (Amox Tr-K Clv 875-125 mg Tab) 875 Mg-125 Mg Tablet 1 TAB PO BID for 10 Days, #20 TAB 0 Refills Prov: CLARISSA NICHOLS DO 03/21/24 Additional Instructions: There are no dangerous findings on your workup here today. The blood work (CBC, BNP, liver function tests, troponin, CK, lipase) is stable. The urinalysis does show some bacteria in the urinary tract. This will be treated with the antibiotics. The CT scan of the abdomen and pelvis does not show any acute abnormalities. There is possibly a pneumonia and the lung. This will also be treated with antibiotics. I have prescribed amoxicillin/clavulanic acid. Please take as prescribed. Complete the entire course of antibiotics. You can alternate 1000 mg of Tylenol or 800 mg of ibuprofen as needed for pain or discomfort. These medications are [id number]. Please follow up with the primary doctor in 2-4 days for re-evaluation. Return to the emergency department sooner if you have any concerns. Referrals: MAGO ROB MD (PCP) CLARISSA NICHOLS DO Mar 21, 2024 12:09
[2024-03-21 12:10] LABS: BASOPHILS # (AUTO) 0.04 K/uL (0.00-0.20); BASOPHILS % (AUTO) 0.3 % (0.0-5.0); EOSINOPHILS # (AUTO) 0.16 K/uL (0.00-0.70); EOSINOPHILS % (AUTO) 1.4 % (0.0-8.0); HEMATOCRIT 37.2 % (42-54); IMMATURE GRANULOCYTE ABSOLUTE 0.05 K/uL (0-1); LYMPHOCYTES # (AUTO) 0.9 K/uL (1.0-4.8); LYMPHOCYTES % (AUTO) 7.7 % (21.0-51.0); MEAN CORPUSCULAR HEMOGLOBIN 29.1 pg (27.0-33.0); MEAN CORPUSCULAR HGB CONC 32.3 g/dL (32.0-36.0); MEAN CORPUSCULAR VOLUME 90.1 fL (79-99); MONOCYTES # (AUTO) 0.8 K/uL (0.1-1.0); MONOCYTES % (AUTO) 6.5 % (3.0-13.0); NEUTROPHILS # (AUTO) 9.9 K/uL (1.8-7.7); NEUTROPHILS % (AUTO) 83.7 % (40.0-77.0); PLATELET COUNT (AUTO) 215 K/uL (130-400); RED BLOOD CELL COUNT(AUTO) 4.13 MIL/uL (4.50-6.20); RED CELL DISTRIBUTION WIDTH 14.9 % (11.0-15.5); WHITE BLOOD COUNT (AUTO) 11.8 K/uL (4.8-10.8)
--- NOTE | 2024-03-21 12:10 | EKG ---
[facility] Test Date: 2024-03-21 Test Time: 12:08:19 Pat Name: KARINE MITCHELL Department: ED Room: Gender: M Claims Collector: [id number] : [id number] Requested By: CLARISSA NICHOLS Order Number: [id number] Reading MD: Inderjit Chilel Measurements Intervals [place] Rate: 54 P: 60 LA: 178 QRS: 19 QRSD: 88 T: 21 QT: 438 QTc: 417 Interpretive Statements Sinus rhythm Compared to ECG 09/10/2023 13:08:43 No significant changes Electronically Signed On 03-22-2024 12:18:48 VENEER SLICING MACHINE OPERATOR by Inderjit Chilel Please click the below link to view image of tracing.
[2024-03-21 12:17] LABS: APPEARANCE,URINE CLEAR (CLEAR); BILIRUBIN,URINE NEGATIVE (NEGATIVE); COLOR,URINE LIGHT-YELLOW (YELLOW); GLUCOSE, URINE (UA) NEGATIVE (NEGATIVE); KETONES,URINE NEGATIVE (NEGATIVE); LEUKOCYTE ESTERASE ,URINE 25 Leu/uL (NEGATIVE); NITRATE,URINE NEGATIVE (NEGATIVE); OCCULT BLOOD,URINE NEGATIVE (NEGATIVE); PROTEIN,URINE 10 mg/dL (NEGATIVE); UROBILINOGEN,URINE 0.2 mg/dL (0.2-1.0)
[2024-03-21] MEDS: 0.9%NACL 1000ML 1,000 ML IV ONE (12:19)
[2024-03-21 12:21] LABS: ADD UA MICROSCOPIC YES; CREATININE 1.9 mg/dL (0.5-1.3); POTASSIUM 3.7 mmol/L (3.5-5.1)
--- NOTE | 2024-03-21 12:21 | HMCIMG ---
CHEST 1VW REASON: abd pain COMPARISON: 09/16/2022 FINDINGS: Single view of the chest was obtained. Lungs are clear. Heart size is normal. There is no pulmonary vascular congestion. Mediastinum and bony thorax appear unremarkable. IMPRESSION: 1. Normal single view chest x-ray.
[2024-03-21 12:23] LABS: MUCUS,URINE RARE LPF (None Seen); SQUAMOUS EPITHELIAL CELL,UR RARE /HPF (0-2)
[2024-03-21 12:30] LABS: ALBUMIN 2.5 g/dL (3.5-5.0); BILIRUBIN,DIRECT 0.1 mg/dL (0.0-0.3); BILIRUBIN,TOTAL 0.6 mg/dL (0.2-1.0); TOTAL PROTEIN, SERUM 6.6 g/dL (6.0-8.3)
[2024-03-21 13:02] LABS: COVID19 (SARS ANTIGEN RAPID) PRESUMPTIVE NEGATIVE (NEGATIVE); INFLUENZA TYPE A Negative For Type A (NEGATIVE)
[2024-03-21] MEDS ORDERED: IOHEXOL-350 75 ML VIAL IV ONE (13:05)
--- NOTE | 2024-03-21 13:50 | HMCIMG ---
CT ABDOMEN/PELVIS W/CONTRAST REASON: Abdominal Pain COMPARISON: None. TECHNIQUE: Images are obtained from lung bases to symphysis pubis following IV contrast, 75 cc Omnipaque 350. FINDINGS: There is acute appearing focal infiltrate in superior segment of the left lower lobe, this could represent early or mild pneumonia. Lung bases are otherwise clear. There are no focal liver lesions. There are normal-appearing kidneys.. Spleen and pancreas appear unremarkable. There is nodularity in the gallbladder wall which may represent adenomyomatosis, there are no definite stones, gallbladder ultrasound may be helpful for further evaluation in this regard. There is mild sigmoid diverticulosis without evidence of diverticulitis. Bowel loops appear otherwise unremarkable. The appendix was not separately identified. There is no evidence of free fluid or intraperitoneal air. There are no focal fluid collections. Aorta and retroperitoneum appear normal as do pelvic soft tissue structures. The anterior abdominal wall is intact. Osseous structures appear unremarkable. IMPRESSION: 1. No acute finding in the abdomen or pelvis. 2. Focal infiltrates superior segment of the right lower lobe which could represent acute pneumonia. 3. Nodularity in the gallbladder wall which could be adenomyomatosis, gallbladder ultrasound would be helpful for further evaluation, there is no evidence of wall thickening or edema to suggest acute cholecystitis. 4. Mild sigmoid diverticulosis without evidence of diverticulitis. CT was performed with one or more following dose reduction techniques: automated exposure control, adjustment of the mA and kv according to patient's size, or use of a iterative reconstruction technique.
[2024-03-21 14:19] LABS: INFLUENZA TYPE B Positive For Type B (NEGATIVE)
[2024-03-21] MEDS ORDERED: AMOX1TAB16 PO (14:21)
[2024-03-21 15:01] VITALS: BP 135/52; PULSE 64; RESP 18; TEMP 98; O2SAT 97
== END 2024-03-21 15:12 | disposition home or self-care (01) ==
LOC: EDH 11:38
DX: I12.9 Hypertensive chronic kidney disease with stage 1 through stage 4 chronic kidney disease, or unspecified chronic kidney disease (principal); N18.9 Chronic kidney disease, unspecified; J18.9 Pneumonia, unspecified organism; N39.0 Urinary tract infection, site not specified; E78.00 Pure hypercholesterolemia, unspecified; F03.90 Unspecified dementia, unspecified severity, without behavioral disturbance, psychotic disturbance, mood disturbance, and anxiety; I25.10 Atherosclerotic heart disease of native coronary artery without angina pectoris; K21.9 Gastro-esophageal reflux disease without esophagitis; Z20.822 Contact with and (suspected) exposure to COVID-19; Z79.52 Long term (current) use of systemic steroids; Z79.82 Long term (current) use of aspirin
CPT/HCPCS: 99285; 74177; 96360; 71045; 87426; 82550; 80076; 84484; 80048; 83690; 85025; 87804 ×2; 81001; 36415; 93005; J7030; Q9967

== ENCOUNTER 2024-04-05 00:13 | Observation (INO) | payer OTHER ==
[~2024-04-05] VITALS: Ht 165.1 cm; Wt 73.6 kg
[~2024-04-05 00:13] MED LIST changes: +ASPI-1197 PO; +ATOR10 PO; +CHOL-34 PO; +DONE10TA8 PO; +FAMO-136 PO; +FOLI0.8T22 PO; +LISI10TA24 PO; +MEMA1TAB PO; +SULF1TAB42 PO
--- NOTE | 2024-04-05 00:29 | ERN ---
ED Note History of Present Illness Stated Complaint: CONFUSED, DISORIENTATED Chief Complaint: Altered Mental Status Time Seen by MD: 00:18 Dictation: This is an 88-year-old male with known history of dementia was recently admitted to the hospital on 03/24/2024 with a a presumptive diagnosis of acute psychosis and was subsequently discharged on 03/25/2024 at the time he was also noted to have a UTI. He was discharged on Bactrim. Chronologically on 03/21/2024 patient had influenza a positive test. He was also given Augmentin by primary care physician. When patient's family brought him to the ER on 03/24 2024, they felt that maybe his confusion worsening was probably related to Augmentin They brought him back today via EMS with same complaints of increasing confusion and disorientation. Temperature 98 pulse 88 respirations 16 blood pressure 148/68 with a pulse oximetry of 99% on room air His chronic medical problems include hypertension hypercholesterolemia, depression dementia gastroesophageal reflux disease Allergies: Coded Allergies: No Known Allergies (Unverified Allergy, Unknown, 07/01/22) No Known Drug Allergies (Verified Allergy, Unknown, 02/16/18) Home Meds Active Scripts Sulfamethoxazole/Trimethoprim (Bactrim Ds Tablet) 800 Mg-160 Mg Tablet, 1 TAB PO BID for 7 Days, #14 TAB 0 Refills Prov:ANKUR DEMPSEY 03/25/24 Amoxicillin/Potassium Clav (Amox Tr-K Clv 875-125 mg Tab) 875 Mg-125 Mg Tablet, 1 TAB PO BID for 10 Days, #20 TAB 0 Refills Prov:CLARISSA NICHOLS DO 03/21/24 Amoxicillin/Potassium Clav (Amox Tr-K Clv 875-125 mg Tab) 875 Mg-125 Mg Tablet, 1 EACH PO BID for 7 Days, #14 TAB 0 Refills Prov:KATARINA REBOLLEDO NP 09/10/23 Acetaminophen (Tylenol Extra Strength) 500 Mg Tablet, 500 MG PO Q4HPRN PRN for PAIN, #40 TAB Prov:CHEMA ALEGRIA MD 09/16/22 Pantoprazole Sodium (Protonix) 40 Mg Tablet.dr, 40 MG PO ACBKFST for 15 Days, #15 TAB Prov:LIGIA SOTO NP 06/04/19 Reported Medications Atorvastatin Calcium (LIPITOR) 20 Mg Tab, 1 TAB PO HS for 30 Days, #30 TAB 0 Refills 03/25/24 Donepezil HCl (Aricept) 10 Mg Tablet, 1 TAB PO HS for 30 Days, #30 TAB 0 Refills 03/25/24 Famotidine (Pepcid) 20 Mg Tablet, 1 TAB PO BID for 30 Days, #60 TAB 0 Refills 03/25/24 Cholecalciferol (Vitamin D3) (Vitamin D3) 25 Mcg (1000 Unit) Tablet, 1 TAB PO DAILY for 30 Days, #30 TAB 0 Refills 03/25/24 Memantine HCl (Namenda) 5 Mg ()-10 Mg () Tab.ds.pk, 1 TAB PO BID for 28 Days, #49 TAB 0 Refills 03/25/24 Folic Acid/Vitamin B Comp W-C (Jennifer-Christos Tablet) 0.8 Mg Tablet, 1 TAB PO DAILY for 30 Days, #30 TAB 0 Refills 03/25/24 Aspirin (Aspirin) 81 Mg Tab.chew, 81 MG PO AM, TAB.CHEW 03/25/24 Lisinopril (Lisinopril) 10 Mg Tablet, 1 TAB PO DAILY for 30 Days, #30 TAB 0 Refills 03/25/24 Prednisone (Prednisone) 20 Mg Tablet, 20 MG PO DAILY for 30 Days, #30 TAB 04/09/20 Cilostazol (Cilostazol) 100 Mg Tablet, 100 MG PO BIDAC, TAB 05/31/19 Cholecalciferol (Vitamin D3) (Vitamin D) 50,000 Unit Capsule, 12078 UNIT PO QWEEK, CAP 08/14/18 Atorvastatin Calcium (Atorvastatin Calcium) 20 Mg Tablet, 20 MG PO NOON, TAB 08/14/18 Aspirin (Aspir 81) 81 Mg Tablet.dr, 81 MG PO DAILY, TAB 08/14/18 Isosorbide Mononitrate (Isosorbide Mononitrate ER) 30 Mg Tab.er.24h, 30 MG PO HS, TAB 08/14/18 Past Medical History Past Medical History: Dementia, Depression, GERD, High Cholesterol, Hypertension Additional Past Medical Hx: BPH Surgical History: None Family History: CAD, HTN Social History: Negative, Lives with family RN Note Reviewed/Agreed w/PFSH: Yes Review of System Dictation Constitutional: Negative for fever,chills, and weight loss Eyes: Negative for injury, pain,redness, and discharge ENT: Negative for injury,pain or swelling Cardiovascular: Negative for chest pain, palpitations, and edema Respiratory: Negative for shortness of breath, cough, and wheezing, Abdomen/GI: Negative for abdominal pain, nausea, vomiting, diarrhea, and constipation Back: Negative for injury and pain : Negative for injury, bleeding and discharge MS/Extremity: Negative for injury and deformity Skin: Negative for rash, and discoloration Neuro: Negative for headache, weakness, numbness, tingling, and seizure Psych: Negative for suicide ideation, homicidal ideation, and hallucinations Initial Vital Sign VS Vital Signs Date Time Temp Pulse Resp B/P (MAP) Pulse Ox O2 Delivery O2 Flow Rate FiO2 04/05/24 00:15 98.1 88 16 148/68 99 0 04/05/24 01:30 Room Air* 21 Physical Exam Dictation General: awake, alert, NAD Head/Face: Normocephalic, atraumatic Eyes: PERRL, EOMI, vision at baseline ENT: oral cavity clear, TMs clear, no signs of infection Neck: Trachea midline, supple, no nuchal rigidity Cardiovascular: RRR, normal S1/S2, No MRGs, no JVD Respiratory: CTAB, no respiratory distress, No rales or wheezes Abdomen: Soft, non-tender, non-distended, normal bowel sounds, no guarding or rebound. Skin: Warm, dry, normal turgor, no rash MS/Extremity: Pulses equal, no cyanosis, neurovascular intact, FROM Neuro: COAx4, GCS 15, strength 5/5, CN 2-12 intact, normal cerebellar exam, normal gait, Psych: Normal behavior, mood, and affect normal Extremities-trace edema without any palpable cords, Homans sign is negative Results (Laboratory/Radiology) Laboratory/Radiology Laboratory Tests Test 04/05/24 00:47 White Blood Count 8.6 K/uL (4.8-10.8) Red Blood Count 4.22 MIL/uL (4.50-6.20) L Hemoglobin 12.1 g/dL (14.0-18.0) L Hematocrit 37.6 % (42-54) L Mean Corpuscular Volume 89.1 fL (79-99) Mean Corpuscular Hemoglobin 28.7 pg (27.0-33.0) Mean Corpuscular Hemoglobin Concent 32.2 g/dL (32.0-36.0) Red Cell Distribution Width 15.1 % (11.0-15.5) Platelet Count 414 K/uL (130-400) H Mean Platelet Volume 8.0 fL (7.5-10.5) Immature Granulocyte % (Auto) 0.6 % (0-1) Neutrophils (%) (Auto) 64.4 % (40.0-77.0) Lymphocytes (%) (Auto) 23.8 % (21.0-51.0) Monocytes (%) (Auto) 8.1 % (3.0-13.0) Eosinophils (%) (Auto) 1.7 % (0.0-8.0) Basophils (%) (Auto) 1.4 % (0.0-5.0) Neutrophils # (Auto) 5.6 K/uL (1.8-7.7) Lymphocytes # (Auto) 2.1 K/uL (1.0-4.8) Monocytes # (Auto) 0.7 K/uL (0.1-1.0) Eosinophils # (Auto) 0.15 K/uL (0.00-0.70) Basophils # (Auto) 0.12 K/uL (0.00-0.20) Absolute Immature Granulocyte (auto 0.05 K/uL (0-1) Nucleated Red Blood Cells 0.0 % (0.0-0.19) Sodium Level 137 mmol/L (136-145) Potassium Level 5.5 mmol/L (3.5-5.1) H Chloride Level 105 mmol/L (101-111) Carbon Dioxide Level 25 mmol/L (21-32) Blood Urea Nitrogen 33 mg/dL (7-18) H Creatinine 2.0 mg/dL (0.5-1.3) H Glomerular Filtration Rate Calc 32 mL/min (>90) Random Glucose 111 mg/dL (70-105) H Total Calcium 8.8 mg/dL (8.5-10.1) Magnesium Level 2.40 mg/dL (1.80-2.40) Ammonia < 10 umol/L (11-32) L Total Creatine Kinase 198 U/L (21-232) # Troponin I High Sensitivity 32.1 ng/L (4-75) B-Type Natriuretic Peptide 19 pg/mL (0-100) Labs Reviewed?: Yes ED Course ED Course Orders Procedure Category Date Status Time Ammonia LAB 04/05/24 Complete 00:22 Cardiac Panel LAB 04/05/24 Complete 00:22 Cbc With Differential LAB 04/05/24 Complete 00:22 Basic Metabolic Panel LAB 04/05/24 Complete 00:22 B-Type Natriuretic LAB 04/05/24 Complete Peptide 00:22 Magnesium LAB 04/05/24 Complete 00:22 Urinalysis Profile LAB 04/05/24 In Process 00:22 Chest 1vw RAD 04/05/24 Taken 00:22 0.9% Nacl 500ml PHA 04/05/24 Complete Iv.Soln (Ns 500ml 00:30 0.9%Nacl 1000ml (Ns PHA 04/05/24 In Process 1000ml) 02:00 Sodium Zirconium PHA 04/05/24 In Process Cyclosilicate 02:00 Melatonin (Melatonin) PHA 04/05/24 In Process 02:00 Quetiapine Fumarate PHA 04/05/24 In Process 25 Mg Tab (Seroquel 02:00 Edm Admit Bridge Order ADM 04/05/24 Verified 01:52 Admit Orders ADM 04/05/24 Verified 01:52 Current Medications Medications (Trade) Dose Ordered Sig/Dayanna Route PRN Reason Start Time Stop Time Status Last Admin Dose Admin Melatonin (Melatonin) 5 mg ONCE ONCE PO 04/05/24 02:00 04/05/24 02:01 Quetiapine Fumarate (SEROquel 25 mg TAB) 25 mg ONCE ONCE PO 04/05/24 02:00 04/05/24 02:01 Sodium Chloride 500 ml @ 0 mls/hr ONCE ONCE IV 04/05/24 00:30 04/05/24 00:31 DC 04/05/24 01:06 Sodium Chloride 1,000 ml @ 125 mls/hr ONCE ONCE IV 04/05/24 02:00 04/05/24 09:59 Sodium Zirconium Cyclosilicate (Lokelma) 5 gm ONCE ONCE PO 04/05/24 02:00 04/05/24 02:01 Vital Signs Date Time Temp Pulse Resp B/P (MAP) Pulse Ox O2 Delivery O2 Flow Rate FiO2 04/05/24 01:30 71 18 98 Room Air* 0 21 04/05/24 00:15 98.1 88 16 148/68 99 0 We will perform diagnostic labs, advanced imaging and administer medications according to the patient's complaint. Once the results are available, will review and personally interpreted the labs to rule out any acute life- threatening emergency the trach require immediate intervention and treatment. I will then re-evaluate the patient after treatment and diagnostic exams have return to determine whether the patient requires any further testing, can safely be discharged home or need further admission to hospital for additional treatment and evaluation. I reviewed labs CBC is normal BNP 7 shows a potassium of 5.5 BUN and creatinine are 33 and 2.0. Given the worsening renal function and hyperkalemia I am concerned about likely adverse effects of the Bactrim and recommended admission and monitoring the renal function and potassium levels closely. Delirium precautions and establishing sleep-wake cycle-melatonin or a small dose of atypical antipsychotic at bedtime would be reasonable 1:56 a.m. patient accepted by [facility] mid-level provider for [facility] group to be admitted to Medical Decision Making MDM MDM: Differential diagnosis: Worsening confusion likely acute metabolic encephalopathy with a background history of dementia, Bactrim toxicity in the setting of hyperkalemia and worsening renal function, poor sleep hygiene-patient apparently has not slept in 3-4 days Rationale: Tests considered and ordered secondary to shared decision making include: labs, ECG and radiology Previous outside records reviewed: Old ER visits. Risk of complication and/or morbidity or mortality of patient management: None Medications-Per medication reconciliation Need for hospitalization: Patient does meet criteria for hospitalization. Need for emergency major/minor surgery: No There are no social concerns with this patient. Prescription drug management Prescriptions will include symptomatic care Patient's prior external medical records from other ER visits were reviewed by me as indicated. Prior testing and results from previous visits were reviewed. Prior tests were taken into account with medical decision making and resource utilization, independent historian/historians were used to obtain complete medical history. I independently interpreted the test that were performed, results were reviewed by me and considered findings on radiology if ordered. Medical management and examination interpretation discussions were had by me with other qualified healthcare professionals as indicated for the patient's care. Problem List Problem List: (1) Acute metabolic encephalopathy (2) Recent urinary tract infection (3) Dementia (4) Acute kidney injury superimposed on chronic kidney disease (5) Moderate protein-calorie malnutrition (6) Acute urinary tract infection (7) Hyperkalemia DX & DISP Disposition: Inpatient Decision to Admit Time: 01:29 Departure Impression: Primary Impression: Recent urinary tract infection Additional Impressions: Acute metabolic encephalopathy, Dementia, Hyperkalemia, Acute kidney injury superimposed on chronic kidney disease Condition: Stable Additional Instructions: Patient was informed of all the diagnostic labs and procedures conducted in the emergency room today and demonstrated understanding of the results. I personally reviewed and interpreted all the diagnostic exams performed in the ER today. The patient will be admitted to the hospital for further treatment and evaluation. Disposition-admit to facility Condition-stable/guarded Course-uncertain at this time Pain status-decreased Assessment-exam unchanged Admission Certification- I certify that the patients status is appropriate and is based on my best clinical judgment and the patient's condition as documented in the medical records Referrals: ARIANNA GANDARA M.D. (PCP) FILOMENA SALGADO MD Apr 05, 2024 00:29
[2024-04-05 00:53] LABS: BASOPHILS # (AUTO) 0.12 K/uL (0.00-0.20); BASOPHILS % (AUTO) 1.4 % (0.0-5.0); EOSINOPHILS # (AUTO) 0.15 K/uL (0.00-0.70); EOSINOPHILS % (AUTO) 1.7 % (0.0-8.0); HEMATOCRIT 37.6 % (42-54); IMMATURE GRANULOCYTE ABSOLUTE 0.05 K/uL (0-1); LYMPHOCYTES # (AUTO) 2.1 K/uL (1.0-4.8); LYMPHOCYTES % (AUTO) 23.8 % (21.0-51.0); MEAN CORPUSCULAR HEMOGLOBIN 28.7 pg (27.0-33.0); MEAN CORPUSCULAR HGB CONC 32.2 g/dL (32.0-36.0); MEAN CORPUSCULAR VOLUME 89.1 fL (79-99); MONOCYTES # (AUTO) 0.7 K/uL (0.1-1.0); MONOCYTES % (AUTO) 8.1 % (3.0-13.0); NEUTROPHILS # (AUTO) 5.6 K/uL (1.8-7.7); NEUTROPHILS % (AUTO) 64.4 % (40.0-77.0); PLATELET COUNT (AUTO) 414 K/uL (130-400); RED BLOOD CELL COUNT(AUTO) 4.22 MIL/uL (4.50-6.20); RED CELL DISTRIBUTION WIDTH 15.1 % (11.0-15.5); WHITE BLOOD COUNT (AUTO) 8.6 K/uL (4.8-10.8)
[2024-04-05 01:03] LABS: CARBON DIOXIDE 25 mmol/L (21-32); CHLORIDE 105 mmol/L (101-111); GLOMERULAR FILTR. RATE CALC 32 mL/min (>90); GLUCOSE,RANDOM 111 mg/dL (70-105); POTASSIUM 5.5 mmol/L (3.5-5.1); SODIUM SERUM 137 mmol/L (136-145); UREA NITROGEN, BLOOD 33 mg/dL (7-18)
[2024-04-05] MEDS: 0.9% NACL 500ML IV.SOLN 500 ML IV ONE (01:06)
[2024-04-05 01:11] LABS: CREATINE KINASE, TOTAL 198 U/L (21-232)
[2024-04-05 01:12] LABS: AMMONIA < 10 umol/L (11-32)
[2024-04-05 01:27] LABS: B-TYPE NATRIURETIC PEPTIDE 19 pg/mL (0-100)
[2024-04-05 01:50] LABS: APPEARANCE,URINE CLEAR (CLEAR); BILIRUBIN,URINE NEGATIVE (NEGATIVE); COLOR,URINE LIGHT-YELLOW (YELLOW); GLUCOSE, URINE (UA) NEGATIVE (NEGATIVE); KETONES,URINE NEGATIVE (NEGATIVE); LEUKOCYTE ESTERASE ,URINE NEGATIVE Leu/uL (NEGATIVE); NITRATE,URINE NEGATIVE (NEGATIVE); OCCULT BLOOD,URINE NEGATIVE (NEGATIVE); PROTEIN,URINE NEGATIVE (NEGATIVE); UROBILINOGEN,URINE 0.2 mg/dL (0.2-1.0)
[2024-04-05 01:58] LABS: ADD UA MICROSCOPIC NO
[2024-04-05] MEDS ORDERED: 0.9%NACL 1000ML 1,000 ML IV ONE (02:00)
--- NOTE | 2024-04-05 03:13 | HP ---
[facility] HISTORY & PHYSICAL Date Patient Seen: Apr 05, 2024 Time of Visit: 03:03 Supervising Physician: Dr. Mei Llamas Primary Care Physician: Dr Bains Outpatient Specialists: [ ] Inpatient Consults: [ ] PROBLEM LIST: Acute metabolic encephalopathy, POA Acute kidney injury, likely from Bactrim and Augmentin use POA Hyperkalemia, likely from worsening kidney function POA Hypertension, POA History of dementia History of CVA PLAN: Admit to medical-surgical floor VS per unit protocol Avoid nephrotoxic agents Renally dose all medications Continue NS at75 cc an hour Limit sedation Avoid strong narcotics and benzodiazepines Safety precaution Bilateral SCDs Monitor temperature curve Treat fever aggressively CBC, CMP, magnesium level daily HPI: 88-year-old male with past medical history of dementia, hypertension, stroke, who was recently diagnosed with UTI and upper respiratory tract infection was previously placed on Augmentin and Bactrim who presented to ED with complaint of worsening confusion and found to have hyperkalemia, and acute kidney injury. Apparently patient was recently discharged from this hospital two weeks ago with increasing confusion, at that time he was found to have urinary tract infection and was treated with Bactrim. However EMS was activated today by family members due to increasing confusion and disorientation. In ED his initial CBC did not reveal any acute infection or anemia, however his BMP is notable for potassium level 5.5, and creatinine level of 2.0. Patient was initiated on IV fluids and was given hyperkalemia cocktail. Patient was seen and examined in ED with son present at bedside. Both patient and son were Hungarian-speaking only however bedside nurse is available to translate during evaluation. Unable to complete ROS due to current mental state. Patient is confused with periodic agitation. At present patient is currently hemodynamically stable, on room air with appropriate oxygen saturation, confused, with some skin tear on bilateral upper extremities. Patient is an ex-smoker, denies any illicit drug use or alcohol intake. PAST MEDICAL HX: see above PAST SURGICAL HX: noncontributory SOCIAL HISTORY: Ex-smoker, ETOH, or illicit drug use Coded Allergies: No Known Allergies (Unverified Allergy, Unknown, 07/01/22) No Known Drug Allergies (Verified Allergy, Unknown, 02/16/18) REVIEW OF SYSTEMS: Unable to obtain due to confusion PHYSICAL EXAM: GENERAL: Confused HEENT: EOMI, Sclera non icteric, moist mucosa NECK: Supple, no JVD, trachea midline LUNGS: Clear breath sounds bilaterally. No wheezes HEART: Regular rate and rhythm. Normal S1 and S2, without murmurs ABD: Abdomen soft, nontender. Bowel sounds present EXT: No clubbing cyanosis or edema, with skin tear to left elbow NEURO: GCS 14, confused Vital Signs (last 8hr) Date Time Temp Pulse Resp B/P (MAP) Pulse Ox O2 Delivery O2 Flow Rate FiO2 04/05/24 03:01 62 18 137/82 97 Room Air* 0 21 04/05/24 01:30 71 18 98 Room Air* 0 21 04/05/24 00:15 98.1 88 16 148/68 99 0 LABS: Hematology Labs: Test 04/05/24 00:47 Range/Units White Blood Count 8.6 4.8-10.8 K/uL Red Blood Count 4.22 L 4.50-6.20 MIL/uL Hemoglobin 12.1 L 14.0-18.0 g/dL Hematocrit 37.6 L 42-54 % Mean Corpuscular Volume 89.1 79-99 fL Mean Corpuscular Hemoglobin 28.7 27.0-33.0 pg Mean Corpuscular Hemoglobin Concent 32.2 32.0-36.0 g/dL Red Cell Distribution Width 15.1 11.0-15.5 % Platelet Count 414 H 130-400 K/uL Mean Platelet Volume 8.0 7.5-10.5 fL Immature Granulocyte % (Auto) 0.6 0-1 % Neutrophils (%) (Auto) 64.4 40.0-77.0 % Lymphocytes (%) (Auto) 23.8 21.0-51.0 % Monocytes (%) (Auto) 8.1 3.0-13.0 % Eosinophils (%) (Auto) 1.7 0.0-8.0 % Basophils (%) (Auto) 1.4 0.0-5.0 % Neutrophils # (Auto) 5.6 1.8-7.7 K/uL Lymphocytes # (Auto) 2.1 1.0-4.8 K/uL Monocytes # (Auto) 0.7 0.1-1.0 K/uL Eosinophils # (Auto) 0.15 0.00-0.70 K/uL Basophils # (Auto) 0.12 0.00-0.20 K/uL Absolute Immature Granulocyte (auto 0.05 0-1 K/uL Nucleated Red Blood Cells 0.0 0.0-0.19 % Chemistry Labs: Test 04/05/24 00:47 Range/Units Sodium Level 137 136-145 mmol/L Potassium Level 5.5 H 3.5-5.1 mmol/L Chloride Level 105 101-111 mmol/L Carbon Dioxide Level 25 21-32 mmol/L Blood Urea Nitrogen 33 H 7-18 mg/dL Creatinine 2.0 H 0.5-1.3 mg/dL Glomerular Filtration Rate Calc 32 >90 mL/min Random Glucose 111 H 70-105 mg/dL Total Calcium 8.8 8.5-10.1 mg/dL Magnesium Level 2.40 1.80-2.40 mg/dL Ammonia < 10 L 11-32 umol/L Total Creatine Kinase 198 # 21-232 U/L Troponin I High Sensitivity 32.1 4-75 ng/L B-Type Natriuretic Peptide 19 0-100 pg/mL DIAGNOSTICS / RADIOLOGY RESULTS: [ ] PLAN NEURO: Minimize central acting medications as possible. Maintain fall precautions, adequate lighting during the day PULMONARY: Supplemental 02 as needed. Maintain aspiration precautions at all times CARDIOVASCULAR: Follow hemodynamics. Vital signs per facility protocol GI & NUTRITION: Continue with nutritional support. Continue stool softeners and laxatives as needed. KIDNEYS & ELECTROLYTES: Strict monitoring of intake, output and overall fluid balance. Avoid nephrotoxic medications to the extent possible. Medications to be dosed according to renal function. Monitor electrolytes and replace as needed ENDOCRINE: Maintain blood glucose between 100-180 at all times. Hypoglycemia protocol in place INFECTIOUS DISEASE: Trend temperature, WBC and procalcitonin level Follow cultures, deescalate antibiotics as soon as possible. Panculture if new onset fever ONCOLOGY/HEMATOLOGY/COAGULATION: Monitor for s/s of bleeding Monitor hemoglobin, coagulation studies as needed SKIN: Pressure ulcer prevention per facility protocol Specialty mattress ORTHO/REHAB: Continue PT/OT Prophylaxis: Continue GI and DVT prophylaxis Code Status: Full Resuscitation Disposition: TBD Other: Total patient care time exceeds 35 minutes excluding all procedures. Supervising physician: SHADY Rhodes APRN Apr 05, 2024 03:13
[2024-04-05] MEDS: BACITRACIN 1 EACH PACKET TP ONE (03:29)
[2024-04-05] MEDS ORDERED: acetaMINOPHEN 325 MG TAB PO PRN (03:30)
[2024-04-05] MEDS ORDERED: hydrALAZine 20MG/ML VIAL IV PRN (03:30)
[2024-04-05] MEDS ORDERED: ALBUTEROL 0.083% 2.5 MG/3 ML INH IH PRN (03:30)
[2024-04-05] MEDS ORDERED: ondanSETRON 4MG INJ IVP PRN (03:30)
[2024-04-05] MEDS ORDERED: acetaMINOPHEN 650 MG SUPPOSITORY RC PRN (03:30)
[2024-04-05] MEDS ORDERED: LAbetaLOL 20MG SYG IV PRN (03:30)
[2024-04-05] MEDS: MELATONIN 5 MG TABLET PO ONE (03:35)
[2024-04-05] MEDS: 0.9%NACL 1000ML 1,000 ML IV SCH (03:35)
[2024-04-05] MEDS: SODIUM ZIRCONIUM CYCLOSILICATE 5 GM POWD.PACK PO ONE (03:35)
[2024-04-05] MEDS: queTIAPine fuMARate 25 MG TAB PO ONE (03:35)
--- NOTE | 2024-04-05 03:51 | NUR ---
WOUND CARE, RIGHT WRIST 1.5 INCH OVAL SKIN TEAR, RIGHT ELBOW 0.5 INCH ROUND SKIN TEAR, LEFT ELBOW 2 INCH ROUND SKIN TEAR, ALL CLEANED WITH SKINTEGRITY, DRIED, APPLIED BACITRACIN, DRESSED WITH BANDAID AND NONADHESIVE PAD THEN WRAPPED WITH KERLIX, SKIN TEARS NOT BLEEDING, SON STATES GOT THEM TODAY.
--- NOTE | 2024-04-05 05:10 | NUR ---
PATIENT AWAKE, TALKATIVE, HAS NOT SLEPT SO FAR.
--- NOTE | 2024-04-05 07:15 | NUR ---
PT ASLEEP.V S STABLE.FAMILY AT BEDSIDE.
--- NOTE | 2024-04-05 08:34 | HMCIMG ---
CHEST 1VW REASON: confusion disorientation - eval for any penumonia COMPARISON: 03/24/2024 FINDINGS: Single view of the chest was obtained. Lungs are clear. Heart size is normal. There is no pulmonary vascular congestion. Mediastinum and bony thorax appear unremarkable. IMPRESSION: 1. Normal single view chest x-ray.
[2024-04-05] MEDS: PANTOPrazole 40 MG TAB DR PO SCH (08:53)
[2024-04-05] MEDS: ASCORBIC ACID 500 MG TAB PO SCH (08:53)
[2024-04-05] MEDS: FERROUS SULFATE 325 MG TABLET.DR PO SCH (08:53)
[2024-04-05] MEDS: polyETHYLene GLYCol 3350 17 GM POWD.PACK PO SCH (08:53)
--- NOTE | 2024-04-05 14:37 | NUR ---
DCP: HOME SW familiar with pt from previous admission 03/24/24. Pt lives at home, his 2 sons stay with him at night. [facility] Randhawa is pt's provider 8-3 daily. Pt is independent of all his ADLS< daughter assists with home management, meal prep and transportation. Pt has no DME or HH. PCP is Christine Coelho and uses [facility] rx. Per son, pt will dc home at [place]. Addendum: 04/05/24 at 1449 by PAIGE ZHAO SS Amended: Links added.
--- NOTE | 2024-04-05 16:02 | PN ---
[facility] PROGRESS NOTE Date Patient Seen: Apr 05, 2024 Time of Visit: 16:02 Supervising Physician: Dr. laura Fortune Primary Care Physician: Dr Bains Outpatient Specialists: [ ] Inpatient Consults: [ ] PROBLEM LIST: Acute metabolic encephalopathy, POA Acute kidney injury, likely from Bactrim and Augmentin use POA Hyperkalemia, likely from worsening kidney function POA Hypertension, POA History of dementia History of CVA PLAN: Admit to medical-surgical floor VS per unit protocol Avoid nephrotoxic agents Renally dose all medications Continue NS at75 cc an hour Limit sedation Avoid strong narcotics and benzodiazepines Safety precaution Bilateral SCDs Monitor temperature curve Treat fever aggressively CBC, CMP, magnesium level daily INTERVAL HISTORY: Patient was evaluated at bedside, he is lethargic, somnolent, but arousable when awoken. There is no family present at the time and the patient currently remain in the ED pending a bed on the floor. Patient's urinalysis was negative, white count today is 8.6. Patient's potassium is 5.5, currently continues on normal saline IV fluid hydration at 75 mL/hour. We will continue to monitor his progress closely for resolution of his encephalopathy. Pending to speak with family regarding the patient's baseline status. REVIEW OF SYSTEMS: Unable to obtain due to confusion PHYSICAL EXAM: GENERAL: Confused HEENT: EOMI, Sclera non icteric, moist mucosa NECK: Supple, no JVD, trachea midline LUNGS: Clear breath sounds bilaterally. No wheezes HEART: Regular rate and rhythm. Normal S1 and S2, without murmurs ABD: Abdomen soft, nontender. Bowel sounds present EXT: No clubbing cyanosis or edema, with skin tear to left elbow NEURO: GCS 14, confused Vital Signs (last 8hr) Date Time Temp Pulse Resp B/P (MAP) Pulse Ox O2 Delivery O2 Flow Rate FiO2 04/05/24 13:42 98.2 53 16 118/37 99 Room Air* 0 21 04/05/24 11:27 98.1 54 16 106/46 95 Room Air* 0 21 LABS: Hematology Labs: Test 04/05/24 00:47 Range/Units White Blood Count 8.6 4.8-10.8 K/uL Red Blood Count 4.22 L 4.50-6.20 MIL/uL Hemoglobin 12.1 L 14.0-18.0 g/dL Hematocrit 37.6 L 42-54 % Mean Corpuscular Volume 89.1 79-99 fL Mean Corpuscular Hemoglobin 28.7 27.0-33.0 pg Mean Corpuscular Hemoglobin Concent 32.2 32.0-36.0 g/dL Red Cell Distribution Width 15.1 11.0-15.5 % Platelet Count 414 H 130-400 K/uL Mean Platelet Volume 8.0 7.5-10.5 fL Immature Granulocyte % (Auto) 0.6 0-1 % Neutrophils (%) (Auto) 64.4 40.0-77.0 % Lymphocytes (%) (Auto) 23.8 21.0-51.0 % Monocytes (%) (Auto) 8.1 3.0-13.0 % Eosinophils (%) (Auto) 1.7 0.0-8.0 % Basophils (%) (Auto) 1.4 0.0-5.0 % Neutrophils # (Auto) 5.6 1.8-7.7 K/uL Lymphocytes # (Auto) 2.1 1.0-4.8 K/uL Monocytes # (Auto) 0.7 0.1-1.0 K/uL Eosinophils # (Auto) 0.15 0.00-0.70 K/uL Basophils # (Auto) 0.12 0.00-0.20 K/uL Absolute Immature Granulocyte (auto 0.05 0-1 K/uL Nucleated Red Blood Cells 0.0 0.0-0.19 % Chemistry Labs: Test 04/05/24 00:47 Range/Units Sodium Level 137 136-145 mmol/L Potassium Level 5.5 H 3.5-5.1 mmol/L Chloride Level 105 101-111 mmol/L Carbon Dioxide Level 25 21-32 mmol/L Blood Urea Nitrogen 33 H 7-18 mg/dL Creatinine 2.0 H 0.5-1.3 mg/dL Glomerular Filtration Rate Calc 32 >90 mL/min Random Glucose 111 H 70-105 mg/dL Total Calcium 8.8 8.5-10.1 mg/dL Magnesium Level 2.40 1.80-2.40 mg/dL Ammonia < 10 L 11-32 umol/L Total Creatine Kinase 198 # 21-232 U/L Troponin I High Sensitivity 32.1 4-75 ng/L B-Type Natriuretic Peptide 19 0-100 pg/mL DIAGNOSTICS / RADIOLOGY RESULTS: [ ] PLAN NEURO: Minimize central acting medications as possible. Maintain fall precautions, adequate lighting during the day PULMONARY: Supplemental 02 as needed. Maintain aspiration precautions at all times CARDIOVASCULAR: Follow hemodynamics. Vital signs per facility protocol GI & NUTRITION: Continue with nutritional support. Continue stool softeners and laxatives as needed. KIDNEYS & ELECTROLYTES: Strict monitoring of intake, output and overall fluid balance. Avoid nephrotoxic medications to the extent possible. Medications to be dosed according to renal function. Monitor electrolytes and replace as needed ENDOCRINE: Maintain blood glucose between 100-180 at all times. Hypoglycemia protocol in place INFECTIOUS DISEASE: Trend temperature, WBC and procalcitonin level Follow cultures, deescalate antibiotics as soon as possible. Panculture if new onset fever ONCOLOGY/HEMATOLOGY/COAGULATION: Monitor for s/s of bleeding Monitor hemoglobin, coagulation studies as needed SKIN: Pressure ulcer prevention per facility protocol Specialty mattress ORTHO/REHAB: Continue PT/OT Prophylaxis: Continue GI and DVT prophylaxis Code Status: Full Resuscitation Disposition: TBD Other: Total patient care time exceeds 35 minutes excluding all procedures. ANKUR DEMPSEY Apr 05, 2024 16:02
--- NOTE | 2024-04-05 17:51 | NUR ---
RE: REPORT TALKED TO NURSE TRACEY REGARDING REPORT.SHE IS UNAMBLE TO TAKE REPORT AT THIS TIME.HOUSE SUPERVISER AWARE.AWAITING NURSE TO CALL BACK.
[2024-04-05] MEDS ORDERED: ESCI-8 PO (18:35)
[2024-04-05] MEDS ORDERED: TAMS-1 PO (18:35)
[2024-04-05] MEDS ORDERED: MEMA5TAB16 PO (18:35)
[2024-04-05] MEDS ORDERED: MIRT7.5T11 PO (18:35)
[2024-04-05] MEDS ORDERED: CILO100T3 PO (18:35)
--- NOTE | 2024-04-05 18:36 | NUR ---
ARRIVAL PATIENT ARRIVED VIA STRETCHER, ACCOMPANIED BY FAMILY. NO S/S OF DISTRESS NOTED.
--- NOTE | 2024-04-05 18:37 | NUR ---
HOME MEDICATIONS HOME MEDICATIONS ENTERED, PENDING RECONCILIATION
[2024-04-05 20:00] VITALS: BP 153/62; PULSE 55; RESP 18; TEMP 98.7
[2024-04-06] VITALS: BP 151/50; PULSE 51; RESP 18; TEMP 98.5
[2024-04-06 04:00] VITALS: BP 133/56; PULSE 58; RESP 17; TEMP 97.5
[2024-04-06 04:45] LABS: BASOPHILS % (AUTO) 1.3 % (0.0-5.0); EOSINOPHILS # (AUTO) 0.28 K/uL (0.00-0.70); EOSINOPHILS % (AUTO) 3.7 % (0.0-8.0); HEMATOCRIT 36.5 % (42-54); IMMATURE GRANULOCYTE ABSOLUTE 0.02 K/uL (0-1); LYMPHOCYTES # (AUTO) 2.4 K/uL (1.0-4.8); LYMPHOCYTES % (AUTO) 32.5 % (21.0-51.0); MEAN CORPUSCULAR HEMOGLOBIN 28.4 pg (27.0-33.0); MEAN CORPUSCULAR VOLUME 91.7 fL (79-99); MONOCYTES # (AUTO) 0.6 K/uL (0.1-1.0); MONOCYTES % (AUTO) 8.6 % (3.0-13.0); NEUTROPHILS % (AUTO) 53.6 % (40.0-77.0); PLATELET COUNT (AUTO) 358 K/uL (130-400); RED BLOOD CELL COUNT(AUTO) 3.98 MIL/uL (4.50-6.20); RED CELL DISTRIBUTION WIDTH 15.2 % (11.0-15.5); WHITE BLOOD COUNT (AUTO) 7.5 K/uL (4.8-10.8)
[2024-04-06 04:58] LABS: CREATININE 1.7 mg/dL (0.5-1.3); MAGNESIUM 2.3 mg/dL (1.80-2.40); PHOSPHORUS 3.7 mg/dL (2.5-4.9); POTASSIUM 5.5 mmol/L (3.5-5.1)
[2024-04-06 08:30] VITALS: BP 138/63; PULSE 69; RESP 19; TEMP 97.5
[2024-04-06 09:00] VITALS: O2SAT 96
[2024-04-06] MEDS: CHOLECALCIFEROL 25 MCG PO SCH (09:00)
[2024-04-06] MEDS: LISINOPRIL 10 MG TABLET PO SCH (09:38)
[2024-04-06] MEDS: FAMOTIDINE 20MG TAB PO SCH (09:38)
[2024-04-06] MEDS: MEMANtine HCL 5 MG TABLET PO SCH (09:38)
[2024-04-06] MEDS: tamSULOsin HCL 0.4 MG CAP.ER.24H PO SCH (09:38)
[2024-04-06] MEDS: Vitamin B Complex/Vit C/Folic Acid PO SCH (09:38)
[2024-04-06] MEDS: citaLOPram 20 MG TABLET PO SCH (09:38)
[2024-04-06] MEDS: CILOstazol 100 MG TAB PO SCH (09:38)
[2024-04-06 12:00] VITALS: BP 121/57; PULSE 61; RESP 19; TEMP 98.4
--- NOTE | 2024-04-06 12:46 | HMCIMG ---
Exam: NONCONTRAST CT BRAIN REASON: fall. COMPARISON: 03/24/2024 TECHNIQUE: Images are obtained from vertex to the skull base. The exam was performed without IV contrast. FINDINGS: There is encephalomalacia in the right frontal lobe consistent with remote previous stroke. There are generous ventricles and sulci. There is decreased attenuation in the deep central white matter. These findings are consistent with atrophy. There are no acute appearing focal parenchymal lesions. There is no evidence of mass, intracranial hemorrhage or acute stroke. Posterior fossa and brainstem structures appear unremarkable. There are no abnormal fluid collections. Extra cranial soft tissues appear unremarkable as well. IMPRESSION: 1. Old right frontal stroke. 2. Severe atrophy. 3. No acute finding and no interval change. CT was performed with one or more following dose reduction techniques: automated exposure control, adjustment of the mA and kv according to patient's size, or use of a iterative reconstruction technique.
--- NOTE | 2024-04-06 13:44 | HMCIMG ---
ELBOW 2VWS LT REASON: fall TECHNIQUE: 2 views were obtained. FINDINGS: There is no evidence of fracture or dislocation. There is no joint effusion. The soft tissues appear unremarkable. There is no evidence of a radiopaque foreign body. IMPRESSION: No acute findings.
--- NOTE | 2024-04-06 13:45 | HMCIMG ---
ELBOW 2VWS RT REASON: fall TECHNIQUE: 2 views were obtained. FINDINGS: There is no evidence of fracture or dislocation. There is no joint effusion. The soft tissues appear unremarkable. There is no evidence of a radiopaque foreign body. IMPRESSION: No acute findings.
[2024-04-06 14:15] VITALS: PULSE 69; RESP 18; O2SAT 95
--- NOTE | 2024-04-06 15:12 | DS ---
[facility] DISCHARGE SUMMARY Date Patient Seen: Apr 06, 2024 Time of Visit: 15:10 Supervising Physician: Dr. laura Fortune Primary Care Physician: Dr Bains Outpatient Specialists: [ ] Inpatient Consults: [ ] HOSPITAL COURSE: HPI (per admitting provider) 88-year-old male with past medical history of dementia, hypertension, stroke, who was recently diagnosed with UTI and upper respiratory tract infection was previously placed on Augmentin and Bactrim who presented to ED with complaint of worsening confusion and found to have hyperkalemia, and acute kidney injury. Apparently patient was recently discharged from this hospital two weeks ago with increasing confusion, at that time he was found to have urinary tract infection and was treated with Bactrim. However EMS was activated today by family members due to increasing confusion and disorientation. In ED his initial CBC did not reveal any acute infection or anemia, however his BMP is notable for potassium level 5.5, and creatinine level of 2.0. Patient was initiated on IV fluids and was given hyperkalemia cocktail. Patient was seen and examined in ED with son present at bedside. Both patient and son were Yoruba-speaking only however bedside nurse is available to translate during evaluation. Unable to complete ROS due to current mental state. Patient is confused with periodic agitation. At present patient is currently hemodynamically stable, on room air with a ppropriate oxygen saturation, confused, with some skin tear on bilateral upper extremities. Patient is an ex-smoker, denies any illicit drug use or alcohol intake. The patient was treated for the following problems: ACTIVE PROBLEM LIST FOR THE HOSPITALIZATION: Acute metabolic encephalopathy, POA, resolved Acute kidney injury, likely from Bactrim and Augmentin use POA, improving, advised to discontinue Bactrim and Augmentin as no UTI was found on this admission Hypertension, POA CHRONIC PROBLEMS: continue previous management per PCP unless otherwise cony cated History of dementia History of CVA PACK MASTER FINDINGS/RECOMMENDATIONS: [ ] PROCEDURES: as mentioned above DISCHARGE MEDICATIONS: Pt hemodynamically stable and afebrile at time of discharge. PCP notified of patients admission, hospital course and discharge. PHYSICAL EXAM: GENERAL: Confused HEENT: EOMI, Sclera non icteric, moist mucosa NECK: Supple, no JVD, trachea midline LUNGS: Clear breath sounds bilaterally. No wheezes HEART: Regular rate and rhythm. Normal S1 and S2, without murmurs ABD: Abdomen soft, nontender. Bowel sounds present EXT: No clubbing cyanosis or edema, with skin tear to left elbow NEURO: GCS 14, confused FOLLOW-UP: Follow-up with PCP in 2-3 days RECOMMENDATIONS: See Discharge Instructions This case was seen and discussed with my supervising physician. More than 30 minutes spent on discharge process, including evaluation of the patient, discussion with nursing staff, medication reconciliation and follow-up appointments ANKUR DEMPSEY Apr 06, 2024 15:12
--- NOTE | 2024-04-06 17:07 | NUR ---
patient discharged home with belongings and copy of discharge summary
[2024-04-06] MEDS ORDERED: mirtAZAPine 15 MG TABLET PO SCH (21:00)
[2024-04-06] MEDS ORDERED: doNEPEZil HCL 5 MG TAB PO SCH (21:00)
[2024-04-06] MEDS ORDERED: atorVAStatin 10 MG TABLET PO SCH (21:00)
== END 2024-04-06 17:07 | disposition home or self-care (01) ==
LOC: EDH 00:13 → INTOOBSV 01:52 → EDHIP 01:52 → 4BH 18:30
PROVIDERS: ADMIT Internal Medicine Critical Care Medicine; ATTEND Internal Medicine Critical Care Medicine
DX: N17.9 Acute kidney failure, unspecified (principal); E87.5 Hyperkalemia; I12.9 Hypertensive chronic kidney disease with stage 1 through stage 4 chronic kidney disease, or unspecified chronic kidney disease; N18.9 Chronic kidney disease, unspecified; G93.41 Metabolic encephalopathy; N39.0 Urinary tract infection, site not specified; E44.0 Moderate protein-calorie malnutrition; N40.0 Benign prostatic hyperplasia without lower urinary tract symptoms; S41.112A Laceration without foreign body of left upper arm, initial encounter; S41.111A Laceration without foreign body of right upper arm, initial encounter; F03.90 Unspecified dementia, unspecified severity, without behavioral disturbance, psychotic disturbance, mood disturbance, and anxiety; K21.9 Gastro-esophageal reflux disease without esophagitis; E78.00 Pure hypercholesterolemia, unspecified; Z87.891 Personal history of nicotine dependence; Z86.73 Personal history of transient ischemic attack (TIA), and cerebral infarction without residual deficits; Z98.890 Other specified postprocedural states; Z79.899 Other long term (current) drug therapy; Z68.27 Body mass index [BMI] 27.0-27.9, adult; W19.XXXA Unspecified fall, initial encounter; Y93.89 Activity, other specified; Y92.89 Other specified places as the place of occurrence of the external cause; Y99.8 Other external cause status
CPT/HCPCS: 96360; 96361 ×2; 99284; 82550; 83735 ×2; 84484; 80048 ×2; 83880; 82140; 85025 ×2; 82948 ×3; 81003; 36415 ×2; 71045; 84100; 73070 ×2; 70450; G0378 ×38; J7030 ×2; 94664

== ENCOUNTER 2024-04-19 10:56 | Observation (INO) | payer OTHER ==
[~2024-04-19] VITALS: Ht 172.7 cm; Wt 80.3 kg
[~2024-04-19 10:56] MED LIST changes: -ACET-2743 PO; -AMOX1TAB16 PO; -ASPI-1197 PO; -ASPI-556 PO; -ATOR20TA65 PO; -CHOL500050 PO; +ESCI-8 PO; -ISOS30TA92 PO; -MEMA1TAB PO; +MEMA5TAB16 PO; +MIRT7.5T11 PO; -PANT40TA PO; -PRED20TA3 PO; -SULF1TAB42 PO; +TAMS-1 PO
--- NOTE | 2024-04-19 11:27 | EKG ---
[facility] Test Date: 2024-04-19 Test Time: 11:19:55 Pat Name: KARINE MITCHELL Department: [facility] Room: ED Gender: M Court Operations Clerk: [id number] : 1935 Requested By: CLARISSA NICHOLS Order Number: [id number] Reading MD: Isidro Berg Measurements Intervals [place] Rate: 63 P: 56 SD: 184 QRS: 9 QRSD: 85 T: 41 QT: 403 QTc: 414 Interpretive Statements Sinus rhythm Probable lateral infarct, old Compared to ECG 03/24/2024 17:23:50 Myocardial infarct finding now present Electronically Signed On 04-20-2024 17:14:49 MICRO COMPUTER DATA PROCESSOR by Isidro Berg Please click the below link to view image of tracing.
[2024-04-19 11:40] LABS: APPEARANCE,URINE CLOUDY (CLEAR); BILIRUBIN,URINE NEGATIVE (NEGATIVE); COLOR,URINE LIGHT-YELLOW (YELLOW); GLUCOSE, URINE (UA) NEGATIVE (NEGATIVE); KETONES,URINE NEGATIVE (NEGATIVE); LEUKOCYTE ESTERASE ,URINE 25 Leu/uL (NEGATIVE); NITRATE,URINE NEGATIVE (NEGATIVE); OCCULT BLOOD,URINE NEGATIVE (NEGATIVE); PROTEIN,URINE NEGATIVE (NEGATIVE); UROBILINOGEN,URINE 0.2 mg/dL (0.2-1.0)
[2024-04-19 11:46] LABS: BASOPHILS # (AUTO) 0.09 K/uL (0.00-0.20); BASOPHILS % (AUTO) 1.2 % (0.0-5.0); EOSINOPHILS % (AUTO) 2.6 % (0.0-8.0); HEMATOCRIT 34.4 % (42-54); IMMATURE GRANULOCYTE ABSOLUTE 0.03 K/uL (0-1); LYMPHOCYTES # (AUTO) 1.7 K/uL (1.0-4.8); LYMPHOCYTES % (AUTO) 22.4 % (21.0-51.0); MEAN CORPUSCULAR HEMOGLOBIN 28.9 pg (27.0-33.0); MEAN CORPUSCULAR VOLUME 90.5 fL (79-99); MONOCYTES # (AUTO) 0.7 K/uL (0.1-1.0); MONOCYTES % (AUTO) 8.9 % (3.0-13.0); NEUTROPHILS % (AUTO) 64.5 % (40.0-77.0); PLATELET COUNT (AUTO) 192 K/uL (130-400); RED CELL DISTRIBUTION WIDTH 15.4 % (11.0-15.5); WHITE BLOOD COUNT (AUTO) 7.7 K/uL (4.8-10.8)
[2024-04-19 11:49] LABS: ADD UA MICROSCOPIC YES
[2024-04-19 11:49] LABS: CREATININE 1.8 mg/dL (0.5-1.3); POTASSIUM 4.9 mmol/L (3.5-5.1)
[2024-04-19 11:51] LABS: SQUAMOUS EPITHELIAL CELL,UR MOD /HPF (0-2)
--- NOTE | 2024-04-19 11:52 | ERN ---
General Chief Complaint: Altered Mental Status Stated Complaint: AMS Time Seen by MD: 10:58 History of Present Illness Initial Comments 88-year-old male presents for a bit of confusion beginning earlier today. Patient has a history of dementia, but according to EMS he has been more confused today. A couple of weeks ago he had a UTI and was treated for this. He went to his PCP this morning was found to be more altered than usual. PCP was concerned for possible other UTI. No focal neurologic deficits. He denies any complaints although he provides an unreliable history. Allergies: Coded Allergies: No Known Allergies (Unverified Allergy, Unknown, 07/01/22) No Known Drug Allergies (Verified Allergy, Unknown, 02/16/18) Home Meds Reported Medications Cholecalciferol (Vitamin D3) (Vitamin D3) 25 Mcg (1000 Unit) Capsule, 1 CAP PO DAILY for 30 Days, #30 CAP 0 Refills 04/19/24 Vit B Cmplx 3/FA/Vit C/Biotin (Jennifer-Christos Rx Tablet) 1 Mg-60 Mg-300 Mcg Tablet, 1 TAB PO DAILY for 30 Days, #30 TAB 0 Refills 04/19/24 Mirtazapine (Mirtazapine) 7.5 Mg Tablet, 1 TAB PO HS for 30 Days, #30 TAB 0 Refills 04/19/24 Famotidine (Famotidine) 20 Mg Tablet, 1 TAB PO BID for 30 Days, #60 TAB 0 Refills 04/19/24 Tamsulosin HCl (Flomax) 0.4 Mg Cap.er.24h, 1 CAP PO DAILY for 30 Days, #30 CAP 0 Refills 04/19/24 Atorvastatin Calcium (Atorvastatin Calcium) 20 Mg Tablet, 1 TAB PO DAILY for 30 Days, #30 TAB 0 Refills 04/19/24 Lisinopril (Lisinopril) 10 Mg Tablet, 1 TAB PO DAILY for 30 Days, #30 TAB 0 Refills 04/19/24 Memantine HCl (Namenda) 5 Mg (28)-10 Mg (21) Tab.ds.pk, 1 TAB PO BID for 28 Days, #49 TAB 0 Refills 04/19/24 Brexpiprazole (Rexulti) 2 Mg Tablet, 1 TAB PO DAILY for 30 Days, #30 TAB 0 Refills 04/19/24 Cilostazol (Cilostazol) 100 Mg Tablet, 1 TAB PO BID for 30 Days, #60 TAB 0 Refills 04/19/24 Escitalopram Oxalate (Escitalopram Oxalate) 10 Mg Tablet, 1 TAB PO DAILY for 30 Days, #30 TAB 0 Refills 04/19/24 Aspirin (Ecotrin) 325 Mg Tablet.dr, 325 MG PO DAILY, TAB 04/19/24 Donepezil HCl (Aricept) 10 Mg Tablet, 1 TAB PO HS for 30 Days, #30 TAB 0 Refills 03/25/24 Folic Acid/Vitamin B Comp W-C (Jennifer-Christos Tablet) 0.8 Mg Tablet, 1 TAB PO DAILY for 30 Days, #30 TAB 0 Refills 03/25/24 Discontinued Reported Medications Escitalopram Oxalate (Escitalopram Oxalate) 10 Mg Tablet, 1 TAB PO DAILY for 30 Days, #30 TAB 0 Refills 04/05/24 Memantine HCl (Memantine HCl) 5 Mg Tablet, 1 TAB PO BID for 30 Days, #60 TAB 0 Refills 04/05/24 Cilostazol (Cilostazol) 100 Mg Tablet, 1 TAB PO BID for 30 Days, #60 TAB 0 Refills 04/05/24 Mirtazapine (Mirtazapine) 7.5 Mg Tablet, 7.5 MG PO HS 04/05/24 Tamsulosin HCl (Flomax) 0.4 Mg Cap.er.24h, 0.4 MG PO DAILY 04/05/24 Atorvastatin Calcium (LIPITOR) 20 Mg Tab, 1 TAB PO HS for 30 Days, #30 TAB 0 Refills 03/25/24 Famotidine (Pepcid) 20 Mg Tablet, 1 TAB PO BID for 30 Days, #60 TAB 0 Refills 03/25/24 Cholecalciferol (Vitamin D3) (Vitamin D3) 25 Mcg (1000 Unit) Tablet, 1 TAB PO DAILY for 30 Days, #30 TAB 0 Refills 03/25/24 Lisinopril (Lisinopril) 10 Mg Tablet, 1 TAB PO DAILY for 30 Days, #30 TAB 0 Refills 03/25/24 Past Medical History Past Medical History: CVA, Dementia, High Cholesterol, Hypertension Medical History Other: BPH Past Surgical History: None Family History Family History: CAD, HTN Social History Social History: Negative, Lives with family ROS Dictation CONSTITUTIONAL: No chills, no fever, no weakness, no diaphoresis, no malaise. HEAD/FACE: No signs of trauma. EENT: No eye pain, no blurred vision, no tearing, no double vision, no ear pain, no ear discharge, no nose pain, no nasal congestion, no throat pain, no throat swelling, no mouth pain. RESPIRATORY: No cough, no orthopnea, no SOB, no stridor, no wheezing. CARDIOVASCULAR: No chest pain, no edema, no palpitations, no syncope. GASTROINTESTINAL/ABDOMINAL: No abdominal pain, no constipation, no diarrhea, no nausea, no vomiting. GENITOURINARY: No abnormal discharge, no dysuria, no frequent urination, no hematuria. No complaints of pain in the genitals. MUSCULOSKELETAL: No back pain, no gout, no joint pain, no joint swelling, no muscle pain, no muscle stiffness, no neck pain. INTEGUMENTARY: No change in color, no change in hair/nails, no dryness, no lesion, no lumps, no rash. NEUROLOGICAL/PSYCH: No anxiety, not depressed, no emotional problem, no headache, no numbness, no pre-existing deficit, no history of seizures, no tremors, no weakness. HEMATOLOGIC/LYMPHATIC: Not anemic, no history of blood clots, no apparent bleeding, no bruising, glands not swollen. All Systems Negative, Except as Noted. Physical Exam Physical Exam Dictation VITAL SIGNS: Reviewed. GENERAL APPEARANCE: Alert, answers all questions yes or no, alert to self, not alert to place or circumstance HEAD AND FACE: Non-traumatic. EYES: PERRL, pink conjunctivas, eyelid no trauma, anterior chamber clear. EARS: Pinnas intact and no signs of trauma or erythema. Ear canals clear and no discharge. TMs no erythema. NOSE: No discharge, no bleeding. OROPHARYNX: Mouth normal, teeth no caries, tongue pink. Pharynx clear, no erythema. Tonsils no exudates, no abscesses noted. Mucous membrane moist. NECK: Supple, non-tender, no thyromegaly, no masses, no JVD, no bruits. BREAST: Deferred. CHEST: No tenderness, no crepitus, no paradoxical movement, no retractions. LUNGS: Clear, well-ventilated, symmetric, no rales, no wheezing, no rhonchi, no stridor, good breath sounds bilaterally. HEART: Regular rate, regular rhythm, no murmur, no gallops. VASCULAR: No peripheral edema. ABDOMEN: Soft, positive bowel sounds, nondistended, no guarding, nontender, no rebound, no masses no hepatomegaly, no splenomegaly, no Barnes's sign, no hernias. RECTAL: Deferred. GENITAL: Deferred. NEUROLOGICAL: Normal speech, gross motor function intact, gross sensory function intact. MUSCULOSKELETAL: Neck nontender, full range of motion, back nontender, full range of motion. EXTREMITIES: Nontender, full range of motion. SKIN: Color pink, dry, no turgor, no rash, no lacerations, no abrasions, no contusions. LYMPHATICS: Deferred. Results Laboratory and Microbiology Lab and Micro Result Laboratory Tests Test 04/19/24 11:13 04/19/24 11:21 White Blood Count 7.7 K/uL (4.8-10.8) Red Blood Count 3.80 MIL/uL (4.50-6.20) L Hemoglobin 11.0 g/dL (14.0-18.0) L Hematocrit 34.4 % (42-54) L Mean Corpuscular Volume 90.5 fL (79-99) Mean Corpuscular Hemoglobin 28.9 pg (27.0-33.0) Mean Corpuscular Hemoglobin Concent 32.0 g/dL (32.0-36.0) Red Cell Distribution Width 15.4 % (11.0-15.5) Platelet Count 192 K/uL (130-400) Mean Platelet Volume 9.0 fL (7.5-10.5) Immature Granulocyte % (Auto) 0.4 % (0-1) Neutrophils (%) (Auto) 64.5 % (40.0-77.0) Lymphocytes (%) (Auto) 22.4 % (21.0-51.0) Monocytes (%) (Auto) 8.9 % (3.0-13.0) Eosinophils (%) (Auto) 2.6 % (0.0-8.0) Basophils (%) (Auto) 1.2 % (0.0-5.0) Neutrophils # (Auto) 5.0 K/uL (1.8-7.7) Lymphocytes # (Auto) 1.7 K/uL (1.0-4.8) Monocytes # (Auto) 0.7 K/uL (0.1-1.0) Eosinophils # (Auto) 0.20 K/uL (0.00-0.70) Basophils # (Auto) 0.09 K/uL (0.00-0.20) Absolute Immature Granulocyte (auto 0.03 K/uL (0-1) Nucleated Red Blood Cells 0.0 % (0.0-0.19) Sodium Level 141 mmol/L (136-145) Potassium Level 4.9 mmol/L (3.5-5.1) Chloride Level 108 mmol/L (101-111) Carbon Dioxide Level 28 mmol/L (21-32) Blood Urea Nitrogen 23 mg/dL (7-18) H Creatinine 1.8 mg/dL (0.5-1.3) H Glomerular Filtration Rate Calc 36 mL/min (>90) Random Glucose 103 mg/dL (70-105) Total Calcium 8.4 mg/dL (8.5-10.1) L Total Creatine Kinase 92 U/L (21-232) # Troponin I High Sensitivity 21 ng/L (4-75) B-Type Natriuretic Peptide 45 pg/mL (0-100) Urine Color LIGHT-YELLOW (YELLOW) Urine Appearance CLOUDY (CLEAR) H Urine pH 6.0 (5.0-8.0) Urine Specific [place] 1.015 (1.001-1.031) Urine Protein NEGATIVE mg/dL (NEGATIVE) Urine Glucose (UA) NEGATIVE mg/dL (NEGATIVE) Urine Ketones NEGATIVE mg/dL (NEGATIVE) Urine Occult Blood NEGATIVE (NEGATIVE) Urine Nitrate NEGATIVE (NEGATIVE) Urine Bilirubin NEGATIVE mg/dL (NEGATIVE) Urine Urobilinogen 0.2 mg/dL (0.2-1.0) Urine Leukocyte Esterase 25 Vini/uL (NEGATIVE) H Urine RBC 2-5 /HPF (0-1) H Urine WBC 2-5 /HPF (0-1) H Urine Squamous Epithelial Cells MOD /HPF (0-2) Urine Bacteria None /HPF (None Seen) MDM CC:Altered mentation. Historian: Family due to patient's mentation Comorbidities: Previous CVA, dementia, recurrent UTIs, advanced age Limitations by social determinants of health: None Differential diagnosis: Stroke, UTI /infection, advanced dementia, other. Vital signs are stable Labs (independently ordered and interpreted by me ): CBC is stable. Electrolytes show baseline renal function otherwise unremarkable. Troponin is normal. CK and BNP are normal. CT scan without contrast (independently interpreted by me ): No acute bleed Chest x-ray (independently interpreted by me ): No cardiomegaly, borderline edema otherwise unremarkable. NIHSS of one for confusion, moving all limbs. Not a candidate for thrombolytics because outside of the treatment window. No Signs of LV 0. We will admit for stroke workup. consultation: Hospitalist for admission ED Course Orders Procedure Category Date Status Time Cbc With Differential LAB 04/19/24 Complete 11:05 Ct Head/Brain W/O CT 04/19/24 Resulted Contrast 11:05 Chest 1vw RAD 04/19/24 Resulted 11:05 12 Lead Ekg Tracing- EKG 04/19/24 Resulted Technical 11:05 Creatine Kinase, Total LAB 04/19/24 Complete 11:05 Troponin I High LAB 04/19/24 Complete Sensitivity 11:05 Urinalysis Profile LAB 04/19/24 Complete 11:05 B-Type Natriuretic LAB 04/19/24 Complete Peptide 11:05 Bedside Glucose CPOE 04/19/24 Transmitted Fingerstick 11:05 Basic Metabolic Panel LAB 04/19/24 Complete 11:05 Ceftriaxone 1g Vial PHA 04/19/24 Complete (Rocephine 1g Inj) 13:30 Vital Signs Date Time Temp Pulse Resp B/P (MAP) Pulse Ox O2 Delivery O2 Flow Rate FiO2 04/19/24 13:20 98.2 56 18 150/45 100 Room Air* 0 21 04/19/24 11:10 98.1 66 16 135/41 100 Room Air* 0 21 04/19/24 10:57 97.7 69 16 122/54 96 Room Air 0 DX & DISP Disposition: Inpatient Departure Impression: Primary Impression: Stroke-like symptoms Critical Time: 30 minutes (Critical Care Procedure NoteAuthorized and Performed by: meTotal critical care time: Approximately 36 minutesDue to a high probability of clinically significant, life threatening deterioration, the patient required my highest level of preparedness to intervene emergently and I personally spent this critical care time directly and personally managing the patient. This critical care time included obtaining a history; examining the patient; pulse oximetry; ordering and review of studies; arranging urgent treatment with development of a management plan; evaluation of patient's response to treatment; frequent reassessment; and, discussions with other providers.This critical care time was performed to assess and manage the high probability of imminent, life-threatening deterioration that could result in multi-organ failure. It was exclusive of separately billable procedures and treating other patients and teaching time.Please see MDM section and the rest of the note for further information on patient assessment and treatment.) Condition: Stable Referrals: ARIANNA GANDARA M.D. (PCP) CLARISSA NICHOLS DO Apr 19, 2024 11:52
[2024-04-19 12:14] LABS: B-TYPE NATRIURETIC PEPTIDE 45 pg/mL (0-100)
--- NOTE | 2024-04-19 12:15 | HMCIMG ---
Exam Exam: NONCONTRAST CT BRAIN REASON: altered. COMPARISON: 04/06/2024 TECHNIQUE: Images are obtained from vertex to the skull base. The exam was performed without IV contrast. FINDINGS: There is an old right frontal stroke. There are generous ventricles and sulci. There is decreased attenuation in the deep central white matter. These findings are consistent with atrophy. There are no acute appearing focal parenchymal lesions. There is no evidence of mass, intracranial hemorrhage or acute stroke. Posterior fossa and brainstem structures appear unremarkable. There are no abnormal fluid collections. Extra cranial soft tissues appear unremarkable as well. IMPRESSION: 1. Atrophy, no acute finding. 2. No interval change. CT was performed with one or more following dose reduction techniques: automated exposure control, adjustment of the mA and kv according to patient's size, or use of a iterative reconstruction technique.
--- NOTE | 2024-04-19 12:23 | HMCIMG ---
CHEST 1VW REASON: altered COMPARISON: 04/05/2024 FINDINGS: Heart size is normal. There is no vascular congestion. There are some increased interstitial markings in both lungs which may be chronic. There is a minimal right pleural effusion. Mediastinum and bony thorax appear unremarkable. IMPRESSION: 1. Increased perihilar interstitial markings, this could be chronic or could be an early interstitial edema.
--- NOTE | 2024-04-19 13:40 | HP ---
[facility] HISTORY & PHYSICAL Date Patient Seen: Apr 19, 2024 Time of Visit: 13:40 Supervising Physician: Arias Saunders MD Primary Care Physician: Yasmin Parada MD Outpatient Specialists: Inpatient Consults: none PROBLEM LIST: TIA vs CVA vs metabolic encephalopathy 2/2 cystitis POA Acute complicated cystitis POA CKD stage 3 Essential hypertension History of colon previous CVA, dementia, and recurrent UTIs. HPI: This is a 88-year-old male with a past medical history of dementia, hypertension, previous CVA and recurrent UTIs who came into the ED for evaluation of dysarthria. As per patient's daughter he was sent from his primary care physician for rule out stroke due to noticed them slightly slurring his voice. Daughter reports that for the past two weeks he has been increasingly confused. The patient has a underlying history of dementia per reports patient has been more confused than normal. On arrival to the emergency department patient has a temperature of 98.1 heart rate of 66 respiratory rate of 16 with a blood pressure of 135/41 saturating 100% on room air. On laboratory workup WBCs were normal H&H 11/34.4. Chemistries remarkable for BUN 23 creatinine of 1.8 GFR of 36 with a total calcium of 8.4, patient has a history of CKD stage III. Urinalysis was cloudy and remarkable for 25 leukocyte esterase RBCs of 2-5 WBCs of 2 to five MD moderate squamous epithelial cells. On head CT patient had atrophy with no acute findings no interval change. Chest x-ray showed increased perihilar interstitial markings this could be chronic could be early interstitial edema. On assessment patient is awake alert and oriented to name but confused more than usual as per daughter. She also reports patient has been trouble sleeping at night and it has been hard to take care of him with the advanced dementia at home. Patient has a underlying history of dementia and previous CVA although there is no focal weakness this time. Patient's daughter reports that he has a history of recurrent UTIs. We will go ahead and rule out new ischemic stroke with the MRI of the brain without contrast. and continue with stroke work up. We will obtain ultrasound of the carotids and 2D echo. If no evidence of acute stroke patient will likely be discharged tomorrow on antibiotics for UTI. PAST MEDICAL HX: Dementia Hypertension CVA UTI PAST SURGICAL HX: noncontributory SOCIAL HISTORY: No tobacco, ETOH, or illicit drug use Coded Allergies: No Known Allergies (Unverified Allergy, Unknown, 07/01/22) No Known Drug Allergies (Verified Allergy, Unknown, 02/16/18) REVIEW OF SYSTEMS: 12 point ROS reviewed with patient. Pertinent positives mentioned above. Otherwise negative. PHYSICAL EXAM: GENERAL: alert, weak, awake oriented x name and person HEENT: EOMI, Sclera non icteric, moist mucosa NECK: Supple, no JVD, trachea midline LUNGS: Clear breath sounds bilaterally. No wheezes HEART: Regular rate and rhythm. Normal S1 and S2, without murmurs ABD: Abdomen soft, nontender. Bowel sounds present EXT: No clubbing cyanosis or edema NEURO: Alert and oriented to person, follows commands Vital Signs (last 8hr) Date Time Temp Pulse Resp B/P (MAP) Pulse Ox O2 Delivery O2 Flow Rate FiO2 04/19/24 11:10 98.1 66 16 135/41 100 Room Air* 0 21 04/19/24 10:57 97.7 69 16 122/54 96 Room Air 0 LABS: Hematology Labs: Test 04/19/24 11:13 Range/Units White Blood Count 7.7 4.8-10.8 K/uL Red Blood Count 3.80 L 4.50-6.20 MIL/uL Hemoglobin 11.0 L 14.0-18.0 g/dL Hematocrit 34.4 L 42-54 % Mean Corpuscular Volume 90.5 79-99 fL Mean Corpuscular Hemoglobin 28.9 27.0-33.0 pg Mean Corpuscular Hemoglobin Concent 32.0 32.0-36.0 g/dL Red Cell Distribution Width 15.4 11.0-15.5 % Platelet Count 192 130-400 K/uL Mean Platelet Volume 9.0 7.5-10.5 fL Immature Granulocyte % (Auto) 0.4 0-1 % Neutrophils (%) (Auto) 64.5 40.0-77.0 % Lymphocytes (%) (Auto) 22.4 21.0-51.0 % Monocytes (%) (Auto) 8.9 3.0-13.0 % Eosinophils (%) (Auto) 2.6 0.0-8.0 % Basophils (%) (Auto) 1.2 0.0-5.0 % Neutrophils # (Auto) 5.0 1.8-7.7 K/uL Lymphocytes # (Auto) 1.7 1.0-4.8 K/uL Monocytes # (Auto) 0.7 0.1-1.0 K/uL Eosinophils # (Auto) 0.20 0.00-0.70 K/uL Basophils # (Auto) 0.09 0.00-0.20 K/uL Absolute Immature Granulocyte (auto 0.03 0-1 K/uL Nucleated Red Blood Cells 0.0 0.0-0.19 % Chemistry Labs: Test 04/19/24 11:13 Range/Units Sodium Level 141 136-145 mmol/L Potassium Level 4.9 3.5-5.1 mmol/L Chloride Level 108 101-111 mmol/L Carbon Dioxide Level 28 21-32 mmol/L Blood Urea Nitrogen 23 H 7-18 mg/dL Creatinine 1.8 H 0.5-1.3 mg/dL Glomerular Filtration Rate Calc 36 >90 mL/min Random Glucose 103 70-105 mg/dL Total Calcium 8.4 L 8.5-10.1 mg/dL Total Creatine Kinase 92 # 21-232 U/L Troponin I High Sensitivity 21 4-75 ng/L B-Type Natriuretic Peptide 45 0-100 pg/mL DIAGNOSTICS / RADIOLOGY RESULTS: PATIENT: KARINE MITCHELL MR#: [id number] : 1935 SEX: M AGE: 88 LOCATION: [facility] ORDER STATUS: [facility] REPORT#: [id number] SERVICE 1105 REASON: altered ORDERING PHYSICIAN: CLARISSA NICHOLS DO PROCEDURE: HEAD WO - CT HEAD/BRAIN W/O CONTRAST Exam Exam: NONCONTRAST CT BRAIN REASON: altered. COMPARISON: 04/06/2024 TECHNIQUE: Images are obtained from vertex to the skull base. The exam was performed without IV contrast. FINDINGS: There is an old right frontal stroke. There are generous ventricles and sulci. There is decreased attenuation in the deep central white matter. These findings are consistent with atrophy. There are no acute appearing focal parenchymal lesions. There is no evidence of mass, intracranial hemorrhage or acute stroke. Posterior fossa and brainstem structures appear unremarkable. There are no abnormal fluid collections. Extra cranial soft tissues appear unremarkable as well. IMPRESSION: 1. Atrophy, no acute finding. 2. No interval change. CT was performed with one or more following dose reduction techniques: automated exposure control, adjustment of the mA and kv according to patient's size, or use of a iterative reconstruction technique. DICTATED BY: WAYNE DOWNS MD DATE: 04/19/241210 ELECTRONICALLY SIGNED BY: WAYNE DOWNS MD DATE: 04/19/241214 IMAGING REPORT Signed PATIENT: KARINE MITCHELL MR#: [id number] : 1935 SEX: M AGE: 88 LOCATION: [facility] ORDER 06 STATUS: [facility] REPORT#: [id number] SERVICE 04 REASON: altered ORDERING PHYSICIAN: CLARISSA NICHOLS DO PROCEDURE: CXR1VW - CHEST 1VW CHEST 1VW REASON: altered COMPARISON: 04/05/2024 FINDINGS: Heart size is normal. There is no vascular congestion. There are some increased interstitial markings in both lungs which may be chronic. There is a minimal right pleural effusion. Mediastinum and bony thorax appear unremarkable. IMPRESSION: 1. Increased perihilar interstitial markings, this could be chronic or could be an early interstitial edema. DICTATED BY: WAYNE DOWNS MD DATE: 04/19/241218 ELECTRONICALLY SIGNED BY: WAYNE DOWNS MD DATE: 04/19/241222 PLAN who Admitted to medical-surgical with telemetry MRI of the brain Ultrasound of the carotids 2D echo Aspirin 81 mg daily Resume home statin Rocephin 2 g 80 With the static vital signs PT to eval and treat Case management for DC planning Monitor kidney function Electrolyte management and covered per protocol If MRI negative for acute ischemic stroke discharge with p.o. antibiotics for ac nondalton cystitis. NEURO: Minimize central acting medications as possible. Maintain fall precautions, adequate lighting during the day PULMONARY: Supplemental 02 as needed. Maintain aspiration precautions at all times CARDIOVASCULAR: Follow hemodynamics. Vital signs per facility protocol GI & NUTRITION: Continue with nutritional support. Continue stool softeners and laxatives as needed. KIDNEYS & ELECTROLYTES: Strict monitoring of intake, output and overall fluid balance. Avoid nephrotoxic medications to the extent possible. Medications to be dosed according to renal function. Monitor electrolytes and replace as needed ENDOCRINE: Maintain blood glucose between 100-180 at all times. Hypoglycemia protocol in place INFECTIOUS DISEASE: Trend temperature, WBC and procalcitonin level Follow cultures, deescalate antibiotics as soon as possible. Panculture if new onset fever ONCOLOGY/HEMATOLOGY/COAGULATION: Monitor for s/s of bleeding Monitor hemoglobin, coagulation studies as needed SKIN: Pressure ulcer prevention per facility protocol Specialty mattress ORTHO/REHAB: Continue PT/OT Prophylaxis: Continue GI and DVT prophylaxis Code Status: Full Resuscitation Disposition: TBD Other: Total patient care time exceeds 35 minutes excluding all procedures. JENNY COVARRUBIAS [facility] Apr 19, 2024 13:40
[2024-04-19] MEDS ORDERED: acetaMINOPHEN 650 MG SUPPOSITORY RC PRN (14:00)
[2024-04-19] MEDS ORDERED: acetaMINOPHEN 325 MG TAB PO PRN (14:00)
[2024-04-19] MEDS: cefTRIAXone 1G VIAL IVPB ONE (14:34)
[2024-04-19 15:49] LABS: THYROID STIMULATING HORMONE 1.77 uIU/mL (0.36-3.74)
--- NOTE | 2024-04-19 15:58 | HMCIMG ---
US CAROTID DUPLEX REASON: assess for carotid stenosis TECHNIQUE: Exam was performed using spectral analysis and color flow imaging. FINDINGS: Color flow Doppler ultrasound mild plaque in the right bifurcation and minimal soft plaque on the left. There is no evidence of significant focal stenosis in either bifurcation. There is antegrade flow in both vertebral arteries. RIGHT CAROTID: CCA: 102 cm/sec ICA: 131 cm/sec Ratio: ICA/CCA: 1.3 ECA: 147 cm/sec Vertebral artery: 112 cm/sec LEFT CAROTID: CCA: 122 cm/sec ICA: 158 cm/sec Ratio: ICA/CCA: 1.3 ECA: 64 cm/sec Vertebral artery: 94 cm/sec IMPRESSION: 1. No evidence of significant stenosis in either carotid bifurcation.
--- NOTE | 2024-04-19 16:31 | HMCIMG ---
MR BRAIN WO CON REASON: rule out ischemic stroke TECHNIQUE: Routine cerebral imaging protocol was performed. Exam was performed without IV contrast. STUDIES FOR COMPARISON: None. FINDINGS: There is an old stroke in the right posterior frontal lobe. There is an additional old stroke medially in the left occipital lobe There are diffusely generous ventricles and sulci. Findings are consistent with diffuse global atrophy. There are also focal areas of increased signal intensity within the deep central white matter consistent with small vessel disease. There are no focal mass lesions. There are no abnormal fluid collections. There is no evidence of intracranial hemorrhage. Diffusion-weighted images are negative for acute ischemic event. Posterior fossa and brainstem structures appear normal as well. Calvarium appears unremarkable. Extracranial soft tissues appear normal as well. IMPRESSION: 1. Diffusely generous ventricles and sulci consistent with a component of global atrophy. 2. Multiple old strokes. 2. No acute finding, diffusion-weighted images are negative for acute ischemic event.
[2024-04-19] MEDS ORDERED: ESCI-8 PO (20:51)
[2024-04-19] MEDS ORDERED: ASPI-1146 PO (20:51)
[2024-04-19] MEDS ORDERED: CILO100T3 PO (20:51)
[2024-04-19] MEDS ORDERED: CHOL100046 PO (20:51)
[2024-04-19] MEDS ORDERED: FAMO20TA8 PO (20:51)
[2024-04-19] MEDS ORDERED: BREX2TAB PO (20:51)
[2024-04-19] MEDS ORDERED: MEMA1TAB PO (20:51)
[2024-04-19] MEDS ORDERED: FOLI1TAB85 PO (20:51)
[2024-04-19] MEDS ORDERED: TAMS-1 PO (20:51)
[2024-04-19] MEDS ORDERED: MIRT7.5T11 PO (20:51)
[2024-04-19] MEDS ORDERED: LISI10TA24 PO (20:51)
[2024-04-19] MEDS ORDERED: ATOR20TA65 PO (20:51)
[2024-04-19] MEDS ORDERED: PoTASSium chl 10% ELIXIR 20MEQ 20 MEQ/15 ML UDCUP PO PRN (21:00)
[2024-04-19] MEDS ORDERED: PoTASSium chloRIDE 10MEQ SR 10 MEQ/TAB TAB.SR.24H PO PRN (21:00)
[2024-04-19] MEDS ORDERED: PoTASSium chloRIDE 10MEQ/100ML 100 ML IV PRN (21:00)
[2024-04-19] MEDS ORDERED: PoTASSium chloRIDE 20MEQ ER 20 MEQ ERTAB PO PRN (21:00)
[2024-04-19] MEDS ORDERED: MAGNESIUM 2GM PREMIX 50ML 50 ML IV PRN (21:00)
[2024-04-19] MEDS: doNEPEZil HCL 5 MG TAB PO SCH (21:05)
[2024-04-19] MEDS: FAMOTIDINE 20MG TAB PO SCH (21:05)
[2024-04-19] MEDS: atorVAStatin 10 MG TABLET PO SCH (21:05)
[2024-04-19] MEDS: MELATONIN 5 MG TABLET PO SCH (21:34)
[2024-04-20 06:20] LABS: BASOPHILS # (AUTO) 0.08 K/uL (0.00-0.20); BASOPHILS % (AUTO) 1.2 % (0.0-5.0); EOSINOPHILS # (AUTO) 0.33 K/uL (0.00-0.70); EOSINOPHILS % (AUTO) 4.8 % (0.0-8.0); HEMATOCRIT 35.3 % (42-54); IMMATURE GRANULOCYTE ABSOLUTE 0.02 K/uL (0-1); LYMPHOCYTES # (AUTO) 1.8 K/uL (1.0-4.8); LYMPHOCYTES % (AUTO) 25.5 % (21.0-51.0); MEAN CORPUSCULAR HEMOGLOBIN 28.6 pg (27.0-33.0); MEAN CORPUSCULAR HGB CONC 31.2 g/dL (32.0-36.0); MEAN CORPUSCULAR VOLUME 91.9 fL (79-99); MONOCYTES # (AUTO) 0.7 K/uL (0.1-1.0); MONOCYTES % (AUTO) 9.4 % (3.0-13.0); NEUTROPHILS # (AUTO) 4.1 K/uL (1.8-7.7); NEUTROPHILS % (AUTO) 58.8 % (40.0-77.0); PLATELET COUNT (AUTO) 172 K/uL (130-400); RED BLOOD CELL COUNT(AUTO) 3.84 MIL/uL (4.50-6.20); RED CELL DISTRIBUTION WIDTH 15.3 % (11.0-15.5); WHITE BLOOD COUNT (AUTO) 6.9 K/uL (4.8-10.8)
[2024-04-20 06:31] LABS: RAPID GROUP A STREP negative (NEGATIVE)
[2024-04-20 06:41] LABS: COVID19 (SARS ANTIGEN RAPID) PRESUMPTIVE NEGATIVE (NEGATIVE); INFLUENZA TYPE A Negative For Type A (NEGATIVE); INFLUENZA TYPE B Negative For Type B (NEGATIVE)
[2024-04-20 06:49] LABS: CREATININE 1.5 mg/dL (0.5-1.3); PHOSPHORUS 4.1 mg/dL (2.5-4.9); POTASSIUM 5.1 mmol/L (3.5-5.1); THYROID STIMULATING HORMONE 1.25 uIU/mL (0.36-3.74)
--- NOTE | 2024-04-20 07:00 | NUR ---
REPORT RECEIVED FROM VENANCIO MCINTYRE
--- NOTE | 2024-04-20 08:33 | NUR ---
ECHO: BUILDING PERFORMANCE CONSULTANT CURRENTLY AT BEDSIDE PERFORMING EXAM ON THE PT.
--- NOTE | 2024-04-20 11:08 | NUR ---
REPORT ENDORSED TO ALE WALLACE
[2024-04-20] MEDS: ASPIRIN 81 MG EC TAB PO SCH (11:42)
[2024-04-20] MEDS: CEFTRIAXONE 2GM VIAL IVPB SCH (11:42)
[2024-04-20] MEDS: Vitamin B Complex/Vit C/Folic Acid PO SCH (11:43)
[2024-04-20] MEDS: tamSULOsin HCL 0.4 MG CAP.ER.24H PO SCH (11:43)
--- NOTE | 2024-04-20 15:41 | PN ---
[facility] PROGRESS NOTE Date Patient Seen: Apr 20, 2024 Time of Visit: 1212 Supervising Physician: Dr. ROMO Primary Care Physician: Yasmin Parada MD Outpatient Specialists: Inpatient Consults: none PROBLEM LIST: TIA vs CVA vs metabolic encephalopathy 2/2 cystitis POA Acute complicated cystitis POA CKD stage 3 Essential hypertension History of colon previous CVA, dementia, and recurrent UTIs. INTERVAL HISTORY: 04/20 patient was seen and examined at bedside with daughter present. Patient is awake alert able to answer simple questions appropriately. Patient denies any chest pain or shortness of breadth. Denies any nausea vomiting or abdominal pain. Patient's serum creatinine level continued to improve today 1.5 yesterday 1.8 we will continue to monitor closely. We will follow up with patient's urine culture. Patient's MRI of the brain unremarkable CT head unremarkable carotid ultrasound unremarkable. If patient's back to baseline by tomorrow plan is for discharge in a.m. REVIEW OF SYSTEMS: 12 point ROS reviewed with patient. Pertinent positives mentioned above. Otherwise negative. PHYSICAL EXAM: GENERAL: alert, weak, awake oriented x name and person HEENT: EOMI, Sclera non icteric, moist mucosa NECK: Supple, no JVD, trachea midline LUNGS: Clear breath sounds bilaterally. No wheezes HEART: Regular rate and rhythm. Normal S1 and S2, without murmurs ABD: Abdomen soft, nontender. Bowel sounds present EXT: No clubbing cyanosis or edema NEURO: Alert and oriented to person, follows commands Vital Signs (last 8hr) Date Time Temp Pulse Resp B/P (MAP) Pulse Ox O2 Delivery O2 Flow Rate FiO2 04/20/24 13:03 97.5 72 16 128/62 96 Room Air* 0 21 04/20/24 11:32 97.5 72 16 128/62 96 Room Air* 0 21 04/20/24 08:00 97.5 75 16 97 Room Air* 0 21 LABS: Hematology Labs: Test 04/20/24 06:12 Range/Units White Blood Count 6.9 4.8-10.8 K/uL Red Blood Count 3.84 L 4.50-6.20 MIL/uL Hemoglobin 11.0 L 14.0-18.0 g/dL Hematocrit 35.3 L 42-54 % Mean Corpuscular Volume 91.9 79-99 fL Mean Corpuscular Hemoglobin 28.6 27.0-33.0 pg Mean Corpuscular Hemoglobin Concent 31.2 L 32.0-36.0 g/dL Red Cell Distribution Width 15.3 11.0-15.5 % Platelet Count 172 130-400 K/uL Mean Platelet Volume 8.6 7.5-10.5 fL Immature Granulocyte % (Auto) 0.3 0-1 % Neutrophils (%) (Auto) 58.8 40.0-77.0 % Lymphocytes (%) (Auto) 25.5 21.0-51.0 % Monocytes (%) (Auto) 9.4 3.0-13.0 % Eosinophils (%) (Auto) 4.8 0.0-8.0 % Basophils (%) (Auto) 1.2 0.0-5.0 % Neutrophils # (Auto) 4.1 1.8-7.7 K/uL Lymphocytes # (Auto) 1.8 1.0-4.8 K/uL Monocytes # (Auto) 0.7 0.1-1.0 K/uL Eosinophils # (Auto) 0.33 0.00-0.70 K/uL Basophils # (Auto) 0.08 0.00-0.20 K/uL Absolute Immature Granulocyte (auto 0.02 0-1 K/uL Nucleated Red Blood Cells 0.0 0.0-0.19 % Chemistry Labs: Test 04/20/24 06:12 04/19/24 15:14 04/19/24 11:13 Range/Units Sodium Level 145 136-145 mmol/L Potassium Level 5.1 3.5-5.1 mmol/L Chloride Level 112 H 101-111 mmol/L Carbon Dioxide Level 27 21-32 mmol/L Blood Urea Nitrogen 22 H 7-18 mg/dL Creatinine 1.5 H 0.5-1.3 mg/dL Glomerular Filtration Rate Calc 45 >90 mL/min Random Glucose 95 70-105 mg/dL Total Calcium 8.5 8.5-10.1 mg/dL Phosphorus Level 4.1 2.5-4.9 mg/dL Magnesium Level 2.00 1.80-2.40 mg/dL Total Creatine Kinase 74 21-232 U/L Troponin I High Sensitivity 28.2 4-75 ng/L Triglycerides Level 89 30-200 mg/dL Cholesterol Level 118 <200 mg/dL LDL Cholesterol 66 0-99 mg/dL HDL Cholesterol 51 29-71 mg/dL Thyroid Stimulating Hormone (TSH) 1.25 # 0.36-3.74 uIU/mL Ammonia 12 11-32 umol/L B-Type Natriuretic Peptide 45 0-100 pg/mL DIAGNOSTICS / RADIOLOGY RESULTS: na PLAN who Follow up with the urine culture Continue Rocephin2 g daily Plan is for possible discharge tomorrow morning if patient back to baseline NEURO: Minimize central acting medications as possible. Maintain fall precautions, adequate lighting during the day PULMONARY: Supplemental 02 as needed. Maintain aspiration precautions at all times CARDIOVASCULAR: Follow hemodynamics. Vital signs per facility protocol GI & NUTRITION: Continue with nutritional support. Continue stool softeners and laxatives as needed. KIDNEYS & ELECTROLYTES: Strict monitoring of intake, output and overall fluid balance. Avoid nephrotoxic medications to the extent possible. Medications to be dosed according to renal function. Monitor electrolytes and replace as needed ENDOCRINE: Maintain blood glucose between 100-180 at all times. Hypoglycemia protocol in place INFECTIOUS DISEASE: Trend temperature, WBC and procalcitonin level Follow cultures, deescalate antibiotics as soon as possible. Panculture if new onset fever ONCOLOGY/HEMATOLOGY/COAGULATION: Monitor for s/s of bleeding Monitor hemoglobin, coagulation studies as needed SKIN: Pressure ulcer prevention per facility protocol Specialty mattress ORTHO/REHAB: Continue PT/OT Prophylaxis: Continue GI and DVT prophylaxis Code Status: Full Resuscitation Disposition: TBD Other: Case discussed with supervising physician plan of care agreed upon JEN HERNÁNDEZ Apr 20, 2024 15:41
--- NOTE | 2024-04-20 16:50 | HMCSR ---
APPROVED REPORT EXAM: Two-dimensional and M-mode echocardiogram with Doppler and color Doppler. INDICATION ICD: Transcient ischemic attack Contrast Details Indication: Rule out PFO Agent/Amount Used: Agitated Saline 2D Dimensions RVDd4.4 cmLVEF(%)66.9 (>50%)LVED Vol(simp.)114.0 mL IVSd0.8 (0.7-1.1cm)FS(%)37 %LVES Vol(simp.)39.3 mL LVDd5.1 (3.8-5.6cm)LA (2D)5.2 (1.6-4.0cm)LVEF(%, simp.)66 % PWd1.0 (0.7-1.1cm)Ao Root(2D)3.5 (2.0-3.7cm)LA ESV INDEX (4CH)58.70 mL/m2 IVSs1.0 cmLVOT diam2.1 (1.8-2.4cm)LA ESV INDEX (2CH)33.80 mL/m2 LVDs3.2 (2.5-4.0cm)LA ESV INDEX (BP)47.00 mL/m2 PWs1.3 cm Deformation Strain Apical 420.0 % Apical 221.0 % Apical 322.0 % Global Emtmlz95.0 % M-Mode Dimensions LA (MM)5.4 (1.6-4.0cm) Ao Root(MM)3.6 (2.0-3.7cm) Aortic Valve AoV VTI0.4 mAo Mean GR6.0 mmHgLVOT VTI0.26 m PAULINE (VMAX)2.2 cm2Al P1/2T620 msAVA (VTI) 2.2 cm2 Mitral Valve MV E Vmax65.5 cm/sDECEL Omfb506 ms MV A Vmax48.5 cm/sP 1/2 T69 ms E/A ratio1.4MVA (PHT)3.2 cm2 TDI E/E' Medial9.9E/E' Lateral8.1 Medial E' Peak V6.60 cm/sLateral E' Peak V8.10 cm/s Pulmonary Valve PV Vmax0.9 m/s PV Peak GR3.5 mmHg Tricuspid Valve TR Vmax2.4 m/sRAP (EST) 8 kbQbKBAQ35.7 mmHg TR Peak GR22.7 mmHg Left Ventricle The left ventricle is normal size. There is normal LV segmental wall motion. There is normal left tamar tricular wall thickness. LVEF is 60-65%. The left ventricular diastolic function is normal. Right Ventricle The right ventricle is normal size. The right ventricular systolic function is normal. Atria The left atrium is moderately dilated. Negative bubble study. No evidence of PFO by agitated saline. The right atrium is moderately dilated. Aortic Valve Not well visualized, appears trileaflet, calcified but opens well. Trace aortic regurgitation is pres ent. There is no aortic valvular stenosis. Mitral Valve The mitral valve is normal in structure. There is trace of mitral valve regurgitation noted. There is no mitral valve stenosis. Tricuspid Valve The tricuspid valve is normal in structure. There is trace of tricuspid valve regurgitation noted. Pulmonic Valve Pulmonic valve is not well visualized. There is no pulmonic valvular regurgitation. Great Vessels The aortic root is normal in size. The IVC is normal in size and collapses <50% with inspiration. Pericardium There is no pericardial effusion. Other Information Quality : Adequate Conclusion The left ventricle is normal size. LVEF is 60-65% with normal LV segmental wall motion. The left ventricular diastolic function is normal. The right ventricular systolic function is normal. The left atrium is moderately dilated. Negative bubble study. No hemodynamically significant valvular abnormalities. There is no pericardial effusion.
[2024-04-20 21:30] VITALS: BP 117/60; PULSE 67; RESP 19; TEMP 98.2
[2024-04-21] VITALS: BP 109/43; PULSE 60; RESP 17; TEMP 97.4
[2024-04-21 03:58] VITALS: BP_SYST 103; BP_SYST 120; BP_SYST 128; BP_DIAS 39; BP_DIAS 46; BP_DIAS 48; PULSE 69; RESP 18; TEMP 97.4
[2024-04-21 05:15] LABS: CREATININE 1.6 mg/dL (0.5-1.3); POTASSIUM 4.6 mmol/L (3.5-5.1)
[2024-04-21 08:00] VITALS: BP 127/56; PULSE 64; RESP 17; TEMP 97.8; O2SAT 98
[2024-04-21 12:00] VITALS: BP 136/40; PULSE 65; RESP 18; TEMP 97.8
--- NOTE | 2024-04-21 15:26 | DS ---
[facility] DISCHARGE SUMMARY Date Patient Seen: Apr 21, 2024 Time of Visit: 1214 Supervising Physician: Dr. Mitchell Primary Care Physician: Yasmin Parada MD Outpatient Specialists: Inpatient Consults: none PROBLEM LIST: TIA vs CVA vs metabolic encephalopathy 2/2 cystitis POA, TIA CVA ruled out metabolic encephalopathy resolved Acute complicated cystitis POA we will complete treatment with oral antibiotics outpatient CKD stage 3 Essential hypertension History of colon previous CVA, dementia, and recurrent UTIs. HOSPITAL COURSE: HPI (per admitting provider)This is a 88-year-old male with a past medical history of dementia, hypertension, previous CVA and recurrent UTIs who came into the ED for evaluation of dysarthria. As per patient's daughter he was sent from his primary care physician for rule out stroke due to noticed them slightly slurring his voice. Daughter reports that for the past two weeks he has been increasingly confused. The patient has a underlying history of dementia per reports patient has been more confused than normal. On arrival to the emergency department patient has a temperature of 98.1 heart rate of 66 respiratory rate of 16 with a blood pressure of 135/41 saturating 100% on room air. On laboratory workup WBCs were normal H&H 11/34.4. Chemistries remarkable for BUN 23 creatinine of 1.8 GFR of 36 with a total calcium of 8.4, patient has a history of CKD stage III. Urinalysis was cloudy and remarkable for 25 leukocyte esterase RBCs of 2-5 WBCs of 2 to five NM moderate squamous epithelial cells. On head CT patient had atrophy with no acute findings no interval change. Chest x-ray showed increased perihilar interstitial markings this could be chronic could be early interstitial edema. Patient was seen and examined at bedside with family present. Patient is more awake alert today. Able to answer all simple questions appropriately. Denies chest pain or shortness of breadth. Denies nausea vomiting or abdominal pain. Patient's carotid Dopplers unremarkable MRI unremarkable CT head unremarkable echocardiogram unremarkable. Patient's blood cultures negative x1 day patient's urine culture showing no growth. As per daughter by bedside sees patient back to baseline. Instructed both patient and daughter that patient will be getting discharged today and will need to follow up with PCP within 3-5 days upon discharge. We will be discharged on [id number] b.i.d. x5 days to complete treatment for urinary tract infection. Both voiced understanding and agreed with plan. The patient was treated for the following problems: ACTIVE PROBLEM LIST FOR THE HOSPITALIZATION: TIA vs CVA vs metabolic encephalopathy 2/2 cystitis POA, TIA CVA ruled out metabolic encephalopathy resolved Acute complicated cystitis POA we will complete treatment with oral antibiotics outpatient CHRONIC PROBLEMS: continue previous management per PCP unless otherwise indicated CHEMISTRY LAB INSTRUCTOR FINDINGS/RECOMMENDATIONS: na PROCEDURES: as mentioned above DISCHARGE MEDICATIONS: [id number] b.i.d. x5 days Pt hemodynamically stable and afebrile at time of discharge. PCP notified of jae santana admission, hospital course and discharge. PHYSICAL EXAM: GENERAL: Pleasant 88-year-old male lying in bed no obvious signs and symptoms of distress HEENT: EOMI, Sclera non icteric, moist mucosa NECK: Supple, no JVD, trachea midline LUNGS: Clear breath sounds bilaterally. No wheezes HEART: Regular rate and rhythm. Normal S1 and S2, without murmurs ABD: Abdomen soft, nontender. Bowel sounds present EXT: No clubbing cyanosis or edema NEURO: Alert and oriented to person, follows commands FOLLOW-UP: Follow-up with PCP in 2-3 days RECOMMENDATIONS: See Discharge Instructions This case was seen and discussed with my supervising physician. 30 minutes spent on discharge process, including evaluation of the patient, discussion with nursing staff, medication reconciliation and follow-up appointments JEN HERNÁNDEZ Apr 21, 2024 15:26
== END 2024-04-21 17:20 | disposition home or self-care (01) ==
LOC: EDH 10:56 → EDHIP 13:32 → 4CH 04-20 21:12
PROVIDERS: ADMIT Internal Medicine; ATTEND Internal Medicine
DX: N30.00 Acute cystitis without hematuria (principal); I12.9 Hypertensive chronic kidney disease with stage 1 through stage 4 chronic kidney disease, or unspecified chronic kidney disease; N18.30 Chronic kidney disease, stage 3 unspecified; N40.0 Benign prostatic hyperplasia without lower urinary tract symptoms; R60.0 Localized edema; F03.90 Unspecified dementia, unspecified severity, without behavioral disturbance, psychotic disturbance, mood disturbance, and anxiety; E78.00 Pure hypercholesterolemia, unspecified; Z20.822 Contact with and (suspected) exposure to COVID-19; Z86.73 Personal history of transient ischemic attack (TIA), and cerebral infarction without residual deficits; Z79.899 Other long term (current) drug therapy; Z98.890 Other specified postprocedural states
CPT/HCPCS: 96365; 96366 ×2; 84443 ×2; 82550 ×4; 84484 ×4; 80048 ×3; 83880; 82140; 85025 ×2; 87040 ×2; 87086; 82533; 81001; 36415 ×3; 71045; 70450; 93880; 70551; 99291; 93005; 96376; 83735; 84100; 80061; 87880; 87804 ×2; 87426; 93306; 93356; 97161; 97116 ×2; 97530 ×2; G0378 ×49; J0696 ×3

== ENCOUNTER → 2024-08-27 | Outpatient (CLI) | payer OTHER ==
[~2024-08-27] MED LIST changes: +ASPI-1146 PO; -ATOR10 PO; +ATOR20TA65 PO; +BREX2TAB PO; -CHOL-34 PO; +CHOL100046 PO; -FAMO-136 PO; +FAMO20TA8 PO; +FOLI1TAB85 PO; +MEMA1TAB PO; -MEMA5TAB16 PO; -TAMS-1 PO; +TAMS-55 PO
--- NOTE | 2024-08-27 09:22 | HMCIMG ---
BONE DENSITOMETRY: HISTORY: Age-related osteoporosis without current pathological fracture Comparison: none FINDINGS: BMD measured at AP spine L1-L4 is 1.149 g/cm2 with a T-score of 0.5 Bone density is up to 10% below young normal. This patient is considered normal according to WHO criteria. Fracture risk is low. BMD measured at Left Femoral Neck is 0.664 g/cm2 with a T-score of -2.4 Bone density is between 10 and 25% below young normal. This patient is considered osteopenic. Fracture risk is moderate. BMD measured at Left Femoral Total is 0.840 g/cm2 with a T-score of -1.6 Bone density is between 10 and 25% below young normal. This patient is considered osteopenic. Fracture risk is moderate. IMPRESSION: Osteopenia. Treatment and follow-up recommended.
== END | disposition home or self-care (01) ==
LOC: RAH 08:37
PROVIDERS: ATTEND Family Medicine
DX: M85.852 Other specified disorders of bone density and structure, left thigh (principal); M81.0 Age-related osteoporosis without current pathological fracture
CPT/HCPCS: 77080